=== PATIENT | female | born 1980 | race Caucasian/White ===

== ENCOUNTER 2016-07-24 14:18 | Emergency (ER) | payer OTHER ==
[~2016-07-24] VITALS: Ht 180.3 cm; Wt 157.9 kg
[~2016-07-24 14:18] MED LIST: ALBUTEROL0.09 MG/A2 IH; BACTRIM DS 8001 TA1 PO; BIAXIN500 MG PO; CIPRO500 MG PO; CIPROFLOXACIN500 MG PO; CLARITIN10 MG PO; CLEOCIN150 MG PO; CLINDAMYCIN150 MG PO; CLINDAMYCIN150 MG/ML PO; Cleocin150 MG PO; DONNATAL1 TAB PO; DOXYCYCLINE MO100 MG PO; FLEXERIL5 MG PO; HYDROCODONE BIT1 T11 PO; IBU800 M1 PO; KEFLEX500 MG PO; LIDEX 0.05% GEL60 GM PO; MACROBID100 M1 PO; MEDROL DOSEPAK4 MG PO; MOTRIN800 MG PO; NORCO 325 MG-51 TAB PO; PEPCID20 MG PO; PHENERGAN W/DM120 ML PO; PREDNICOT20 MG PO; PREDNISONE20 MG PO; PRENATAL1 TAB PO; ROBITUSSIN AC 110 ML PO; TRAMADOL HCL50 MG PO; TRIMOX500 MG PO; VIBRAMYCIN100 MG PO; ZITHROMAX Z PA250 MG PO; ZOFRAN ODT4 MG SL; ZOFRAN4 MG PO; ZYRTEC10 M2 PO; Zofran4 MG PO
[2016-07-24 15:03] LABS: BASO % 0.4 % (0.0-1.0); EOS # 0.1 10*3/uL (0.0-0.4); EOS % 1.9 % (1.0-4.0); HEMATOCRIT 32.5 % (37.0-47.0); HEMOGLOBIN 10.1 g/dl (12.0-16.0); LYMPH # 1.2 10*3/uL (1.3-4.4); LYMPH % 22.5 % (27.0-41.0); MEAN CELL VOLUME 80.4 fl (81.0-99.0); MEAN CORPUSCULAR HGB CONC 31.1 g/dl (33.0-37.0); MEAN PLATELET VOLUME 8.8 fl (9.6-12.3); MONO # 0.5 10*3/uL (0.1-1.0); MONO % 8.5 % (3.0-9.0); NEUT # 3.5 10*3/uL (2.3-7.9); NEUT % 66.5 % (47.0-73.0); PLATELET COUNT AUTOMATED 223 10*3/uL (130-400); RED BLOOD COUNT 4.04 10*6/uL (4.10-5.10); WHITE BLOOD COUNT 5.3 10*3/uL (4.8-10.8)
[2016-07-24 15:19] LABS: ALBUMIN 3.5 gm/dl (3.1-4.5); BILIRUBIN, TOTAL 0.6 mg/dl (0.2-1.0); POTASSIUM 4.3 mmol/L (3.5-5.1); TOTAL PROTEIN 7.6 gm/dL (6.4-8.2)
[2016-07-24 16:34] LABS: BILIRUBIN NEGATIVE (NEGATIVE); BLOOD 3+ (NEGATIVE); CLARITY SL CLOUDY (CLEAR); COLOR YELLOW (YELLOW); GLUCOSE NEGATIVE (NEGATIVE); KETONE NEGATIVE (NEGATIVE); LEUKO ESTERASE NEGATIVE (NEGATIVE); NITRITE NEGATIVE (NEGATIVE); PROTEIN 3+ (NEGATIVE); UROBILINOGEN 0.2 E.U./dl (0.2-1.0)
[2016-07-24 16:45] LABS: BACTERIA TRACE
[2016-07-24 16:46] LABS: URINE REFLEX COMMENT YES (NO)
[2016-07-25] MEDS ORDERED: 'CLONIDINE0.1 MG PO (12:18)
[2016-07-25] MEDS ORDERED: SERTRALINE HYD100 MG PO (12:18)
[2016-07-25] MEDS ORDERED: LISINOPRIL5 MG PO (12:18)
[2016-07-25] MEDS ORDERED: ABILIFY20 MG PO (14:34)
== END 2016-07-24 18:18 | disposition left against medical advice (07) ==
LOC: ED 14:18
PROVIDERS: Registered Nurse
DX: N17.9 Acute kidney failure, unspecified (principal); I10 Essential (primary) hypertension; E66.01 Morbid (severe) obesity due to excess calories; Z88.0 Allergy status to penicillin

== ENCOUNTER 2016-07-25 12:13 | Inpatient (IN) | payer OTHER ==
[~2016-07-25] VITALS: Ht 180.3 cm; Wt 154.3 kg
[2016-07-25 12:18] VITALS: BP 144/81
[2016-07-25] MEDS ORDERED: 'CLONIDINE0.1 MG PO (12:18)
[2016-07-25] MEDS ORDERED: LISINOPRIL5 MG PO (12:18)
[2016-07-25] MEDS ORDERED: SERTRALINE HYD100 MG PO (12:18)
[2016-07-25 12:54] LABS: BASO % 0.2 % (0.0-1.0); EOS # 0.2 10*3/uL (0.0-0.4); EOS % 3.2 % (1.0-4.0); HEMATOCRIT 32.1 % (37.0-47.0); HEMOGLOBIN 9.9 g/dl (12.0-16.0); LYMPH # 1.2 10*3/uL (1.3-4.4); LYMPH % 24.3 % (27.0-41.0); MEAN CELL VOLUME 81.1 fl (81.0-99.0); MEAN CORPUSCULAR HGB CONC 30.8 g/dl (33.0-37.0); MONO # 0.4 10*3/uL (0.1-1.0); MONO % 8.9 % (3.0-9.0); NEUT # 3.1 10*3/uL (2.3-7.9); PLATELET COUNT AUTOMATED 239 10*3/uL (130-400); RED BLOOD COUNT 3.96 10*6/uL (4.10-5.10); RED CELL DISTRI WIDTH 15.1 % (0-14.5); WHITE BLOOD COUNT 4.9 10*3/uL (4.8-10.8)
[2016-07-25 13:08] LABS: ALBUMIN 3.4 gm/dl (3.1-4.5); BILIRUBIN, TOTAL 0.4 mg/dl (0.2-1.0); POTASSIUM 4.2 mmol/L (3.5-5.1); TOTAL PROTEIN 7.6 gm/dL (6.4-8.2)
[2016-07-25 14:16] VITALS: BP 150/88
[2016-07-25 14:30] VITALS: BP 158/72
[2016-07-25] MEDS ORDERED: ABILIFY20 MG PO (14:34)
[2016-07-25 14:52] LABS: BILIRUBIN NEGATIVE (NEGATIVE); BLOOD 3+ (NEGATIVE); CLARITY SL CLOUDY (CLEAR); COLOR YELLOW (YELLOW); GLUCOSE NEGATIVE (NEGATIVE); KETONE NEGATIVE (NEGATIVE); LEUKO ESTERASE NEGATIVE (NEGATIVE); NITRITE NEGATIVE (NEGATIVE); PROTEIN 3+ (NEGATIVE); SPECIFIC GRAVITY 1.015 (1.005-1.030); UROBILINOGEN 0.2 E.U./dl (0.2-1.0)
[2016-07-25 15:26] LABS: RBC 21-30 rbc/hpf (0-2); URINE REFLEX COMMENT YES (NO); WBC 31-40 wbc/hpf (0-5)
[2016-07-25 15:27] LABS: BACTERIA 2+
[2016-07-25 16:00] VITALS: BP 154/62
[2016-07-25 20:00] VITALS: BP 155/72
[2016-07-26] VITALS: BP 148/66
[2016-07-26 06:32] LABS: BASO % 0.4 % (0.0-1.0); EOS # 0.2 10*3/uL (0.0-0.4); EOS % 3.9 % (1.0-4.0); HEMATOCRIT 27.5 % (37.0-47.0); HEMOGLOBIN 8.7 g/dl (12.0-16.0); LYMPH # 1.7 10*3/uL (1.3-4.4); LYMPH % 32.8 % (27.0-41.0); MEAN CELL VOLUME 80.4 fl (81.0-99.0); MEAN CORPUSCULAR HGB 25.4 pg (27.0-31.0); MEAN CORPUSCULAR HGB CONC 31.6 g/dl (33.0-37.0); MEAN PLATELET VOLUME 8.5 fl (9.6-12.3); MONO # 0.5 10*3/uL (0.1-1.0); MONO % 9.6 % (3.0-9.0); NEUT # 2.8 10*3/uL (2.3-7.9); NEUT % 52.9 % (47.0-73.0); PLATELET COUNT AUTOMATED 194 10*3/uL (130-400); RED BLOOD COUNT 3.42 10*6/uL (4.10-5.10); WHITE BLOOD COUNT 5.2 10*3/uL (4.8-10.8)
[2016-07-26 06:53] LABS: HEMOGLOBIN A1c 5.3 % (4.8-5.6)
[2016-07-26 07:16] LABS: ALBUMIN 2.9 gm/dl (3.1-4.5); BILIRUBIN, TOTAL 0.4 mg/dl (0.2-1.0); FREE T4 1.07 ng/dl (0.76-1.46); MAGNESIUM 1.7 mg/dL (1.5-2.1); PHOSPHOROUS 3.8 mg/dL (2.5-4.9); POTASSIUM 4.3 mmol/L (3.5-5.1); TOTAL PROTEIN 6.7 gm/dL (6.4-8.2)
[2016-07-26 07:20] LABS: THYROID STIM HORMONE (HS) 4.1 uIU/ml (0.358-4.75)
[2016-07-26 07:29] LABS: PROTHROMBIN TIME 10.2 SECONDS (9.0-12.4)
[2016-07-26 07:43] LABS: FOLIC ACID 6.3 ng/mL (>5.38); VITAMIN D, 25-HYDROXY 7.8 ng/mL (30-100)
[2016-07-26 08:00] VITALS: BP 156/82
[2016-07-26 12:00] VITALS: BP 148/88
[2016-07-26 16:00] VITALS: BP 152/78
[2016-07-26 20:00] VITALS: BP 152/70
[2016-07-27] VITALS: BP 156/73
[2016-07-27 06:36] LABS: BASO % 0.2 % (0.0-1.0); EOS # 0.2 10*3/uL (0.0-0.4); EOS % 3.3 % (1.0-4.0); HEMATOCRIT 27.4 % (37.0-47.0); HEMOGLOBIN 8.4 g/dl (12.0-16.0); LYMPH # 2.5 10*3/uL (1.3-4.4); LYMPH % 42.8 % (27.0-41.0); MEAN CELL VOLUME 80.1 fl (81.0-99.0); MEAN CORPUSCULAR HGB 24.6 pg (27.0-31.0); MEAN CORPUSCULAR HGB CONC 30.7 g/dl (33.0-37.0); MEAN PLATELET VOLUME 9.3 fl (9.6-12.3); MONO # 0.5 10*3/uL (0.1-1.0); NEUT # 2.6 10*3/uL (2.3-7.9); NEUT % 45.5 % (47.0-73.0); PLATELET COUNT AUTOMATED 202 10*3/uL (130-400); RED BLOOD COUNT 3.42 10*6/uL (4.10-5.10); RED CELL DISTRI WIDTH 14.9 % (0-14.5); WHITE BLOOD COUNT 5.8 10*3/uL (4.8-10.8)
[2016-07-27 07:13] LABS: POTASSIUM 4.3 mmol/L (3.5-5.1)
[2016-07-27 08:00] VITALS: BP 156/80
== END 2016-07-27 13:00 | disposition home or self-care (01) | DRG 683 ==
LOC: ED 12:13 → 5E 13:35 → EDHOLD 13:35 → 5E 14:01
PROVIDERS: Hospitalist; Internal Medicine; Registered Nurse
DX: N17.0 Acute kidney failure with tubular necrosis (principal); E46 Unspecified protein-calorie malnutrition; E87.8 Other disorders of electrolyte and fluid balance, not elsewhere classified; F33.9 Major depressive disorder, recurrent, unspecified; Z68.42 Body mass index [BMI] 45.0-49.9, adult; A08.4 Viral intestinal infection, unspecified; E83.51 Hypocalcemia; E86.0 Dehydration; D64.9 Anemia, unspecified; R82.71 Bacteriuria; E66.01 Morbid (severe) obesity due to excess calories; F41.9 Anxiety disorder, unspecified; N18.3 Chronic kidney disease, stage 3 (moderate); F17.210 Nicotine dependence, cigarettes, uncomplicated; I12.9 Hypertensive chronic kidney disease with stage 1 through stage 4 chronic kidney disease, or unspecified chronic kidney disease; Z88.0 Allergy status to penicillin; Z90.49 Acquired absence of other specified parts of digestive tract; Z98.891 History of uterine scar from previous surgery; Z83.3 Family history of diabetes mellitus; Z80.9 Family history of malignant neoplasm, unspecified; Z82.49 Family history of ischemic heart disease and other diseases of the circulatory system; Z79.899 Other long term (current) drug therapy

== ENCOUNTER → 2016-08-21 | Outpatient (CLI) | payer OTHER ==
[~2016-08-21] MED LIST changes: +'CLONIDINE0.1 MG PO; +ABILIFY20 MG PO; +LISINOPRIL5 MG PO; +SERTRALINE HYD100 MG PO
[2016-08-21 10:19] LABS: BASO % 0.5 % (0.0-1.0); EOS # 0.3 10*3/uL (0.0-0.4); EOS % 3.2 % (1.0-4.0); HEMATOCRIT 30.8 % (37.0-47.0); HEMOGLOBIN 9.6 g/dl (12.0-16.0); LYMPH # 2.8 10*3/uL (1.3-4.4); LYMPH % 33.6 % (27.0-41.0); MEAN CELL VOLUME 81.3 fl (81.0-99.0); MEAN CORPUSCULAR HGB 25.3 pg (27.0-31.0); MEAN CORPUSCULAR HGB CONC 31.2 g/dl (33.0-37.0); MEAN PLATELET VOLUME 8.4 fl (9.6-12.3); MONO # 0.5 10*3/uL (0.1-1.0); MONO % 5.6 % (3.0-9.0); NEUT # 4.8 10*3/uL (2.3-7.9); NEUT % 56.9 % (47.0-73.0); PLATELET COUNT AUTOMATED 254 10*3/uL (130-400); RED BLOOD COUNT 3.79 10*6/uL (4.10-5.10); RED CELL DISTRI WIDTH 15.1 % (0-14.5); WHITE BLOOD COUNT 8.4 10*3/uL (4.8-10.8)
[2016-08-21 10:30] LABS: BILIRUBIN NEGATIVE (NEGATIVE); BLOOD 3+ (NEGATIVE); CLARITY SL CLOUDY (CLEAR); COLOR YELLOW (YELLOW); GLUCOSE NEGATIVE (NEGATIVE); KETONE NEGATIVE (NEGATIVE); LEUKO ESTERASE TRACE (NEGATIVE); NITRITE NEGATIVE (NEGATIVE); PROTEIN 3+ (NEGATIVE); UROBILINOGEN 0.2 E.U./dl (0.2-1.0)
[2016-08-21 10:53] LABS: ALBUMIN 3.1 gm/dl (3.1-4.5); BILIRUBIN, TOTAL 0.3 mg/dl (0.2-1.0); MAGNESIUM 1.9 mg/dL (1.5-2.1); PHOSPHOROUS 4.3 mg/dL (2.5-4.9); POTASSIUM 4.1 mmol/L (3.5-5.1); TOTAL PROTEIN 7.2 gm/dL (6.4-8.2); URIC ACID 8.3 mg/dL (2.6-6.0)
[2016-08-21 11:14] LABS: FERRITIN 6.3 ng/mL (10.0-291.0); PTH INTACT 180.9 pg/mL (14.0-72.0); VITAMIN D, 25-HYDROXY 21.7 ng/mL (30-100)
[2016-08-21 11:33] LABS: HEMOGLOBIN A1c 5.4 % (4.8-5.6)
[2016-08-21 11:33] LABS: BACTERIA 2+
[2016-08-22 09:11] LABS: MICRO ALBUMIN/CRE RATIO 2963.6 (0.0-30.0)
== END | disposition home or self-care (01) ==
LOC: LAB 09:54
PROVIDERS: Internal Medicine Nephrology
DX: I12.9 Hypertensive chronic kidney disease with stage 1 through stage 4 chronic kidney disease, or unspecified chronic kidney disease (principal); N18.4 Chronic kidney disease, stage 4 (severe); R60.0 Localized edema; E66.9 Obesity, unspecified; D63.1 Anemia in chronic kidney disease; E79.0 Hyperuricemia without signs of inflammatory arthritis and tophaceous disease

== ENCOUNTER 2017-07-09 14:32 | Emergency (ER) | payer OTHER ==
[~2017-07-09] VITALS: Ht 210.8 cm; Wt 158.8 kg
[2017-07-09] MEDS ORDERED: PRINIVIL10 MG PO (15:49)
== END 2017-07-09 15:58 | disposition home or self-care (01) ==
LOC: ED 14:32
DX: I12.9 Hypertensive chronic kidney disease with stage 1 through stage 4 chronic kidney disease, or unspecified chronic kidney disease (principal); N18.3 Chronic kidney disease, stage 3 (moderate); F17.200 Nicotine dependence, unspecified, uncomplicated; E66.01 Morbid (severe) obesity due to excess calories; Z98.890 Other specified postprocedural states; Z90.49 Acquired absence of other specified parts of digestive tract; Z88.0 Allergy status to penicillin

== ENCOUNTER 2017-11-02 17:21 | Emergency (ER) | payer OTHER ==
[~2017-11-02 17:21] MED LIST changes: +PRINIVIL10 MG PO
== END 2017-11-02 18:24 | disposition home or self-care (01) ==
LOC: ED 17:21
DX: B34.9 Viral infection, unspecified (principal); I12.9 Hypertensive chronic kidney disease with stage 1 through stage 4 chronic kidney disease, or unspecified chronic kidney disease; N18.3 Chronic kidney disease, stage 3 (moderate); E66.01 Morbid (severe) obesity due to excess calories; F17.200 Nicotine dependence, unspecified, uncomplicated; Z88.0 Allergy status to penicillin

== ENCOUNTER 2018-02-14 17:01 | Inpatient (IN) | payer OTHER ==
[~2018-02-14] VITALS: Ht 180.3 cm; Wt 133.6 kg
--- NOTE | ~2018-02-14 | CON ---
[place], [place] REPORT OF CONSULTATION NAME: MARINA LIAO UNIT #: [id number] ROOM: 402 DOCTOR: CHAVEZ HODGSON,MAY BIRTHDATE: [birth year] DOS: 02/16/2018 HISTORY OF PRESENT ILLNESS: The patient is a 37-year-old female who was admitted from home on 02/14/2018. She states her original reason for actually coming to the hospital was due to a persistent hacking nonproductive cough that has since improved. She had had cold symptoms for several days, but she was found to be in renal failure. She had not followed up with her hand crocheter in over a year. She is also supposed to be on blood pressure medications and had been off of those for some time. She has transportation issues. She has had a temporary hemodialysis placed in the right IJ per Dr. Wright and started on hemodialysis when she is currently receiving. ID is currently consulted for positive blood culture, one bottle of her admitting blood cultures from the has gram-positive bacilli. All of the other bottles remain sterile. Repeat blood cultures from yesterday are pending. It took over 24 hours for the blood cultures to turn positive. She had MRSA screen, which was negative. Her urine culture remained sterile. Reviewing her admitting labs, her urinalysis had only +1 leukocyte esterase and wbc's 11-15 per high powered field. She denies urinary frequency or hematuria. States she felt like she had a little bit of burning with urination one time last week. She was ordered Levaquin for the +1 leukocyte esterase and concern for possible UTI. Vancomycin was also ordered, though it has not yet been given. She has had no fevers, no leukocytosis. She had no fevers at home, but did have some chills. No nausea or vomiting, no diarrhea. Has had some swelling in her ankles. Again, the cough has improved, no shortness of breath currently. PAST MEDICAL HISTORY: As above, chronic kidney disease, anxiety, depression, hypertension, morbid obesity, tobacco abuse, vitamin D deficiency, , cholecystectomy, possible preeclampsia with her last . FAMILY MEDICAL HISTORY: Father with diabetes, mother with diabetes and hypertension. SOCIAL HISTORY: Nondrinker, no illicit drug use. Smoker, 2 packs per day up to 4 sometimes, since she was 20 years old. ALLERGIES: PENICILLIN causes rash. LABORATORY DATA: WBC is 9.3, platelets 162, BUN 103, creatinine 10.5. LFTs within normal limits. Cultures as above. REVIEW OF SYSTEMS: Further review of systems are negative other than as stated above in history of present illness. PHYSICAL EXAMINATION: VITAL SIGNS: Temperature 98.3, pulse 87, respirations 24, BP 191/93. GENERAL: A 37-year-old pleasant obese female, in no acute distress, currently on hemodialysis, nontoxic in appearance. HEAD, EYES, EARS, NOSE AND THROAT: Normocephalic, edentulous. No thrush. NECK: Supple. Right neck with IJ in place, temporary hemodialysis catheter, which is currently accessed. [place], [place] REPORT OF CONSULTATION NAME: MARINA LIAO UNIT #: [id number] ROOM: [facility] DOCTOR: CHAVEZ HODGSONMAY BIRTHDATE: [birth year] LUNGS: Clear to auscultation bilaterally. Respirations even and unlabored. HEART: Regular rhythm. No murmur appreciated. ABDOMEN: Soft, obese, has some right upper quadrant discomfort with palpation. EXTREMITIES: No edema, deformity or cyanosis. SKIN: Warm, dry, free of rashes with few tattoos noted. ASSESSMENT: Bacteremia appears to be a contaminant. It is also doubtful that she has urinary tract infection due to lack of symptoms as well as a negative urine culture. PLAN: We will stop the Levaquin, stop the vancomycin. Chest x-ray was clear on admission. Followup on her final cultures. I agree with the assessment and plan done by the nurse practitioner, Ana Laura Byrne. I reviewed the images and notes and made the necessary changes. ANA LAURA BYRNE CNP Ekta Gan MD CM:CONSTR:REPORT OF CONSULTATION 1703 03/18/18 1123 interface
--- NOTE | ~2018-02-14 | CON ---
[place], [place] REPORT OF CONSULTATION NAME: MARINA LIAO UNIT #: [id number] ROOM: [facility] DOCTOR: COLIN KENDALL MD BIRTHDATE: [birth year] DOS: 02/15/2018 NEPHROLOGY CONSULTATION REASON FOR CONSULTATION: Acute on chronic kidney disease, severe hypertension. HISTORY OF PRESENT ILLNESS: The patient is an unfortunate 37-year-old female. She has a history of known chronic kidney disease. She had been seen by our service last year. She does have a history of hypertension, depression, and obesity. It seems she has some element of noncompliance. She gave a history of productive cough recently and URI symptoms, which prompted her visit to the Emergency Room. She did complain of a poor appetite and some nausea as well, particularly over the past few weeks. The patient reports she has been feeling very, very tired and had labs drawn, which showed her creatinine to be over 11. She also had systolic blood pressures over 200. She did admit that she had been not taking her medications and was unable to see her PCP to obtain refills. The patient has had known chronic kidney disease. She had been following with Dr. Leary in [place], but was lost to follow up. The patient has a probable glomerular disease. Looking at the record, she has had progressive chronic kidney disease over the years. In 2017, her creatinine in fact was over 4 and she was essentially at stage 5 CKD last year. I did note a renal ultrasound, which showed an atrophic kidney with no hydronephrosis. The patient reported to me that it was discussed to do a renal biopsy by Dr. Leary but this was deferred. I am not clear what kind of serological workup that she underwent. The patient does not have any significant improvement with fluids and the preparations are being placed to start dialysis. She tells me she feels fair right now and just tired. She does feel a little bit better from a breathing standpoint. Her appetite is not that good still. She does produce adequate urine she states. She denies fevers or chills. ALLERGIES: Listed TO PENICILLIN. HOME MEDICATIONS: Including Abilify, clonidine, Prinivil, and Zoloft. Apparently, she had not been taking these meds. PAST MEDICAL HISTORY: 1. Known chronic kidney disease, which has been fairly advanced as stated above. 2. Anxiety. 3. Depression. 4. Hypertension. 5. Morbid obesity. 6. Tobacco abuse. 7. Vitamin D deficiency. PAST SURGICAL HISTORY: 1. . 2. Cholecystectomy. 3. What sounds like preeclampsia from what she described to me as well during one of her pregnancies. [place], [place] REPORT OF CONSULTATION NAME: MARINA LIAO UNIT #: [id number] ROOM: [facility] DOCTOR: COLNI KENDALL MD BIRTHDATE: [birth year] FAMILY HISTORY: The patient does report to me she has had a number of family members that have had kidney problems with details unclear. SOCIAL HISTORY: She does have a history of tobacco abuse. No reports of illicit drugs or alcohol. REVIEW OF SYSTEMS: As per HPI, otherwise, a 10-point review of systems was reviewed and was negative. PHYSICAL EXAMINATION: VITAL SIGNS: Temperature afebrile, pulse 86, respiratory rate 19, blood pressure 202/98. GENERAL: She is alert, awake, oriented x 3, no acute distress. HEENT: Shows no JVD. Sclerae are anicteric. Mucous membranes appeared moist. Pharynx is clear. NECK: Supple. Trachea is midline. There is no neck lymphadenopathy or thyromegaly. LUNGS: Diminished breath sounds with an occasional wheeze. There is no tactile fremitus. She is not using accessory muscles of respiration. HEART: S1, S2. No rub, thrill or gallop. ABDOMEN: Soft, nontender. There is no organomegaly or rigidity, rebound or guarding. There is no CVA tenderness. EXTREMITIES: Had no edema. There is no lower extremity lymphadenopathy. Distal pulses are 2+. SKIN: Showed no overt rash. There is no petechia or purpura. Skin temperature is warm. NEUROLOGIC: She is awake, alert and following commands. Cranial nerves are intact. DIAGNOSTIC DATA: Reviewed. LABORATORY DATA: Hemoglobin 8.4, white count 6.8, platelets 176. BUN 91, creatinine 10.6, glucose 134. Sodium 138, potassium 4.1, CO2 of 14, calcium 7.8, phosphorus 5.7, magnesium 2.6. LFTs were within normal limits. Albumin 3.3. IMPRESSION: 1. Stage 5 chronic kidney disease with now new end-stage renal disease. The patient appears to have progressive chronic kidney disease. She is now requiring the need for dialysis. An acute on chronic scenario is possible, but seems less likely. 2. Metabolic acidosis. 3. Anemia, likely of chronic disease. 4. Hyperphosphatemia. 5. Severe hypertension. 6. History of anxiety. 7. Recent upper respiratory infection. 8. History of tobacco abuse. 9. Noncompliance. [place], [place] REPORT OF CONSULTATION NAME: MARINA LIAO UNIT #: [id number] ROOM: [facility] DOCTOR: COLIN KENDALL MD BIRTHDATE: [birth year] PLAN: 1. I had a long talk with the patient today. I explained to her that it appears that she has had progression of her chronic kidney disease, likely due to a glomerular disease and she now will likely be dialysis dependent. She did understand this and accepted her situation. There are tentative plans for a temporary dialysis catheter to be placed tomorrow. We will plan for dialysis treatment tomorrow and likely on Saturday. We will plan on getting her on a 3-day a week schedule sometime next week. She will need a tunneled dialysis catheter hopefully later in the week as well. This will need to be arranged for. 2. We will need to consult social service for outpatient dialysis arrangements. 3. She does have anemia. Would check iron studies and supplement IV iron if indicated. She will require erythropoietin stimulating agents; however, with her hypertension issues, we will hold on this for now. 4. She did have a renal ultrasound performed about a year and a half ago, but this can be considered to be repeated once again. 5. We will obtain an intact PTH level. 6. Stop IV fluids. We will correct her metabolic acidosis with dialysis. 7. She likely will require a phosphorus binder. It seems she has been started on PhosLo. 8. For her blood pressure, we will add labetalol and titrate as tolerated. We will add Norvasc today. Clonidine continues as needed. She had been on KENYA inhibitor prescribed prior to her admission. When she starts dialysis, I think it would be acceptable to resume this as well. Thank you for this consultation. COLIN KENDALL MD CM:CONSTR:REPORT OF CONSULTATION 1546 02/15/18 1644 interface
--- NOTE | ~2018-02-14 | PR ---
[place], [place] PROGRESS NOTE NAME: MARINA LIAO UNIT #: [id number] ROOM: 402 DOCTOR: COLIN KENDALL MD BIRTHDATE: [birth year] DOS: 02/17/2018 SUBJECTIVE: The patient was seen and examined. She seems to be feeling better. She has now had dialysis twice. She has been tolerating treatment fairly well. Denies shortness of breath, fevers, chills or night sweats. PHYSICAL EXAMINATION: VITAL SIGNS: Temperature 98.3, pulse 84, respiratory rate 16, blood pressure 181/97. HEENT: Shows no JVD. LUNGS: Clear. HEART: S1, S2. No rub. ABDOMEN: Soft, nontender. EXTREMITIES: Showed no edema. DIAGNOSTIC DATA: Hemoglobin 7.5, white count 6.8, platelets 167. Sodium 144, potassium 3.7, CO2 21, BUN 69, creatinine 7.3, glucose 89, calcium 7.7, phosphorus of 5.3, magnesium 2.0, albumin 3.1. Intact PTH level of 357. Hepatitis panel is pending. ASSESSMENT AND PLAN: 1. New end-stage renal disease. The patient is now status post dialysis x 2. We will plan for her third treatment on Saturday. The patient will need a tunneled dialysis catheter. Would recommend asking surgery to replace her temporary catheter with TDC hopefully mid-week. The patient will require Social Service consult for outpatient dialysis arrangements. She did understand this. 2. Anemia, likely of chronic disease. The patient will require erythropoietin stimulating agents. We will hold on starting this in the hospital since her blood pressure has been a little bit on the higher side. Would check iron studies and can start IV iron. 3. Hyperphosphatemia and secondary hyperparathyroidism. Her PTH levels are acceptable. We will initiate activated vitamin D therapy in the dialysis unit. She has been started on PhosLo with meals. 4. Hypertension. Her blood pressure remains high. Would recommend resuming her KENYA inhibitor, since dialysis now has started. Continue other medications. [place], [place] PROGRESS NOTE NAME: MARINA LAIO UNIT #: [id number] ROOM: 402 DOCTOR: COLIN KENDALL MD BIRTHDATE: [birth year] COLIN KENDALL MD CM:PNTRANS [phone] COLIN KENDALL MD 02/17/18 1444 interface
--- NOTE | ~2018-02-14 | EKG ---
[place], [place] ELECTROCARDIOGRAM REPORT NAME: MARINA LIAO UNIT #: [id number] ROOM: 402 DOCTOR: MARGARITO DRAFT REPORT BIRTHDATE: [birth year] [facility] Test Date: 2018-02-14 Test Time: 17:29:02 Pat Name: MARINA LIAO Department: Room: 402 Gender: F Snow Blower: Nba Blas : 1980 Requested By: SARAH CHACON Order Number: [id number] Reading MD: Brittany Gupta MD Measurements Intervals [place] Rate: 75 P: 23 PA: 151 QRS: 46 QRSD: 120 T: 45 QT: 422 QTc: 472 Interpretive Statements Sinus rhythm Nonspecific intraventricular conduction delay Baseline wander in lead(s) V Electronically Signed On 02-21-2018 10:42:19 PST by Brittany Gupta MD CM:EKGRPT:ELECTROCARDIOGRAM REPORT 1729 [id number] SARAH CHACON EPIPHANY DRAFT REPORT SARAH CHACON
--- NOTE | ~2018-02-14 | PR ---
[place], [place] PROGRESS NOTE NAME: MARINA LIAO UNIT #: [id number] ROOM: 402 DOCTOR: CHAVEZ HODGSONMAY BIRTHDATE: [birth year] DOS: 02/17/2018 SUBJECTIVE: The patient is a 37-year-old female who is being followed for positive blood culture. She had one bottle which grew gram-positive bacilli. Her urine cultures are sterile. She had no fevers. She finished another dialysis treatment this morning, hopefully for permanent Tesio later in the week, feels okay, had some nausea on dialysis this morning. Otherwise, no emesis, no diarrhea. Again, no fevers or chills. No rash. Further review of systems is unremarkable VITAL SIGNS: Temperature 98.3, pulse 84, respirations 16, BP 181/97. CURRENT MEDICATIONS: Norvasc, vitamin D, Zoloft, PhosLo, DuoNebs, Normodyne, heparin, Mucinex, Pepcid, Abilify, Restoril, morphine, Dulcolax. LABORATORY DATA: Cultures as reviewed above. WBC 6.8, platelets 167. BUN 69, creatinine 7.34. LFTs within normal limits. PHYSICAL EXAMINATION: GENERAL: A 37-year-old obese female, in no acute distress. HEAD, EYES, EARS, NOSE AND THROAT: Normocephalic, no thrush, edentulous. NECK: Supple. Right IJ temporary hemodialysis catheter is dressed. LUNGS: Clear to auscultation bilaterally. Respirations even and unlabored. HEART: Regular rhythm. No murmur appreciated. ABDOMEN: Soft, nondistended. EXTREMITIES: No edema or deformity. SKIN: Warm, dry, free of rashes. ASSESSMENT: Gram positive bacilli bacteremia, likely contaminant. No sign of urinary infection and urine culture is negative. PLAN: No further antibiotics. MAY GOKUL BYRNE [place], [place] PROGRESS NOTE NAME: MARINA LIAO UNIT #: [id number] ROOM: 402 DOCTOR: CHAVEZ HODGSONMAY BIRTHDATE: [birth year] Ekta Gan MD CM:SERENE [id number] MAY CHAVEZ DIGESTER HAND 02/17/18 140 interface
[2018-02-14 17:03] VITALS: BP 238/104
[2018-02-14 17:39] LABS: BASO % 0.5 % (0.0-1.0); EOS # 0.6 10*3/uL (0.0-0.4); EOS % 7.4 % (1.0-4.0); HEMOGLOBIN 8.7 g/dl (12.0-16.0); LYMPH # 1.4 10*3/uL (1.3-4.4); LYMPH % 18.3 % (27.0-41.0); MEAN CELL VOLUME 78.7 fl (81.0-99.0); MEAN CORPUSCULAR HGB 25.4 pg (27.0-31.0); MEAN CORPUSCULAR HGB CONC 32.2 g/dl (33.0-37.0); MEAN PLATELET VOLUME 9.3 fl (9.6-12.3); MONO # 0.4 10*3/uL (0.1-1.0); MONO % 5.7 % (3.0-9.0); NEUT # 5.1 10*3/uL (2.3-7.9); NEUT % 67.8 % (47.0-73.0); PLATELET COUNT AUTOMATED 181 10*3/uL (130-400); RED BLOOD COUNT 3.43 10*6/uL (4.10-5.10); RED CELL DISTRI WIDTH 16.4 % (0-14.5); WHITE BLOOD COUNT 7.6 10*3/uL (4.8-10.8)
[2018-02-14 18:03] LABS: ALKALINE PHOSPHATASE 77 U/L (45-117); BUN 90 mg/dl (7-24); CHLORIDE 111 mmol/L (98-107); LIPASE 155 U/L (73-393); POTASSIUM 3.4 mmol/L (3.5-5.1); SGOT/AST 10 IU/L (3-35); SGPT/ALT 18 U/L (12-78); SODIUM 139 mmol/L (136-145); TOTAL PROTEIN 8.7 gm/dL (6.4-8.2)
[2018-02-14 18:05] LABS: TROPONIN I < 0.015 ng/ml (<0.045)
[2018-02-14 18:22] VITALS: BP 188/92
[2018-02-14 18:42] VITALS: BP 197/100
[2018-02-14 19:23] VITALS: BP 184/100
[2018-02-14 19:55] VITALS: BP 188/92; BP 197/89
--- NOTE | 2018-02-14 20:19 | NUR ---
A 37, admitted to [facility], under the services of ELIZABETH Freedman DO with a diagnosis of HYPERTENSIVE EMERGENCY ARF CHRONIC ANEMIA. Chief complaint is CHEST CONGESTION COUGH X1 WEEK. Patient arrived via stretcher from ER. Monitor applied. Initial assessment completed. Vital signs taken and recorded. ELIZABETH FREEDMAN DO notified of admission to the unit. Orders received. See assessment for past medical history, medications and allergies. Patient and/or family oriented to unit. [facility] visitation policy reviewed. Clothing/patient valuable form completed. [place]
--- NOTE | 2018-02-14 20:44 | NUR ---
PATIENT MEDS VERIFIED WITH PATIENT AND PAST MED CLAIM HISTORY IN THE COMPUTER.
--- NOTE | 2018-02-14 20:58 | NUR ---
CONSULT CALLED TO DOCTOR ALYCE ANSWERING SERVICE DARRYL TOOK MESSAGE AND CONSULT.
--- NOTE | 2018-02-14 21:10 | NUR ---
DOCTOR FAIZA CALLED BACK SAYING THAT PATIENT WILL NEED DIALYSIS BUT WILL NOT HAPPEN TILL SATURDAY ANDTO START ON LABETALOL PO TID IF DOES NOT IMPROVE OVER NIGHT WILL NEED SHIPPED OUT.
[2018-02-15] VITALS (9 sets, daily range): BP systolic 172–202; BP diastolic 78–100
--- NOTE | 2018-02-15 02:06 | NUR ---
PATIENT HAS HAD SEVERAL PHONES CALLS THROUGH OUT THE NIGHT BY FAMILY SHE HAS HAD EVERY CALL ON SPEAKER PHONE TELLING THEN THAT SHE WAS TOLD IF SHE COMES HOME THAT SHE COULD GO TO SLEEP AND NEVER WAKE UP BECAUSE THEY HAVE HER BLOOD PRESSURE SO HIGH WITH THE DRAMA AT HOME THIS CONVERSATION WAS HEARD SEVERAL TIMES. THIS TIME WHEN FAMILY CALLED IN IT WAS VERY LOUD I KINDLY ASKED THE PATIENT IF SHE COULD TURN DOWN THE VOLUME BECAUSE THERE WAS PATIENT ON THE OTHER SIDE OF THE CURTAIN SHE TOLD ME IT WAS ON LOW THEN PROCEEDED TO TELL FAMILY THAT SHE HAS BEEN YELLED AT THREE TIMES FOR BEING LOUD BUT THIS WAS THE FIRST TIME THAT ANYTHING WAS SAID.
[2018-02-15 02:36] LABS: BILIRUBIN NEGATIVE (NEGATIVE); BLOOD 2+ (NEGATIVE); CLARITY SL CLOUDY (CLEAR); COLOR YELLOW (YELLOW); GLUCOSE NEGATIVE (NEGATIVE); KETONE NEGATIVE (NEGATIVE); LEUKO ESTERASE 1+ (NEGATIVE); NITRITE NEGATIVE (NEGATIVE); PH 6.5 (5.0-9.0); UROBILINOGEN 0.2 E.U./dl (0.2-1.0)
[2018-02-15 03:07] LABS: BACTERIA 1+; EPITHELIAL CELLS 25-30
--- NOTE | 2018-02-15 04:15 | NUR ---
PATIENT RESTINGWITH EYES CLOSED PATIENT BP CURRENTLY 189/91. PATIENT HAS URINATED ONCE THROUGHOUT THE NIGHT 800ML STRAW COLORED URINE. PATIENT VOICES NO COMPLAINTS AT THIS TIME.
--- NOTE | 2018-02-15 06:10 | NUR ---
PATIENT AWAKE AND JOKING STATING IF SHE WOULD HAVE KNOWN THAT SHE WAS BEING ADMITTED SHE WOULD HAVE BROUGHT CROSSWORDS TO DO.
[2018-02-15 06:24] LABS: HEMATOCRIT 27.1 % (37.0-47.0); HEMOGLOBIN 8.4 g/dl (12.0-16.0); MEAN CELL VOLUME 80.4 fl (81.0-99.0); MEAN CORPUSCULAR HGB 24.9 pg (27.0-31.0); MEAN PLATELET VOLUME 9.3 fl (9.6-12.3); PLATELET COUNT AUTOMATED 176 10*3/uL (130-400); RED BLOOD COUNT 3.37 10*6/uL (4.10-5.10); RED CELL DISTRI WIDTH 16.5 % (0-14.5); WHITE BLOOD COUNT 6.8 10*3/uL (4.8-10.8)
[2018-02-15 06:56] LABS: POTASSIUM 4.1 mmol/L (3.5-5.1)
[2018-02-15 07:03] LABS: ALBUMIN 3.3 gm/dl (3.1-4.5); CREATININE 10.6 mg/dL (0.55-1.02); FREE T4 1.01 ng/dl (0.76-1.46); PHOSPHOROUS 5.7 mg/dL (2.5-4.9); THYROID STIM HORMONE (HS) 1.57 uIU/ml (0.358-4.75); TOTAL PROTEIN 8.2 gm/dL (6.4-8.2)
--- NOTE | 2018-02-15 07:14 | NUR ---
Shift chart check completed.
[2018-02-15 07:43] LABS: PLATELET SUFFICIENCY NORMAL (NORMAL); TOTAL CELLS COUNTED 100 #CELLS
[2018-02-15 08:00] LABS: VITAMIN D, 25-HYDROXY 15.9 ng/mL (30-100)
--- NOTE | 2018-02-15 10:27 | NUR ---
SPOKE WITH DR KENDALL ABOUT LABS & DIALYSIS CATHETER. REQUESTED PATIENT BE TRANSFERRED OUT FOR DILAYSIS CATHETER UNLESS CAN BE PLACED HERE. DR Linda BATRES CALLED.
--- NOTE | 2018-02-15 10:50 | NUR ---
DR Elba BATRES CAME IN AND CASE DISCUSSED - DR BATRES CALLED DR LOGAN AND HE CAN PLACE THE CATHETER. DR KENDALL CALLED AND SAID THEY COULD DO THE DIALYSIS HERE BUT HTAT THE PATIENT MUST BE INFORMED THAT SHE WILL BE HERE MOST OF THE WEEK, THIS IS A PERMANENT NOT TEMPORARY THING. HE WILL NOT DISCHARGE HER AND IF SHE REFUSES SHE WILL HAVE TO SIGN OUT AMA.
--- NOTE | 2018-02-15 12:15 | NUR ---
DR LOGAN HERE TO TALK WITH THE APTIENT & ABOUT THE TEMPORARY DIALYSIS CATHETER INSERTION
--- NOTE | 2018-02-15 13:40 | NUR ---
CLONIDINE GIVEN FOR CONTINUED ELEVATED PRESSURE DESPITE FAMILY GONE AND CALMER. BP 2019/ MANUAL
--- NOTE | 2018-02-15 14:36 | NUR ---
DR KENDALL AT HOSPITAL & WILL SEE PATIENT SHORTLY
--- NOTE | 2018-02-15 15:06 | NUR ---
DR FAIZA MCDONOUGH. SPOKE WITH THE PATIENT.
--- NOTE | 2018-02-15 15:54 | NUR ---
Sleeping quietly since moved to a private room. Resp easy & nonlabored
[2018-02-16] VITALS (13 sets, daily range): BP systolic 137–194; BP diastolic 75–98
[2018-02-16 06:45] LABS: HEMATOCRIT 24.8 % (37.0-47.0); HEMOGLOBIN 7.7 g/dl (12.0-16.0); MEAN CELL VOLUME 81.3 fl (81.0-99.0); MEAN CORPUSCULAR HGB 25.2 pg (27.0-31.0); MEAN PLATELET VOLUME 9.1 fl (9.6-12.3); PLATELET COUNT AUTOMATED 162 10*3/uL (130-400); RED BLOOD COUNT 3.05 10*6/uL (4.10-5.10); RED CELL DISTRI WIDTH 16.8 % (0-14.5); WHITE BLOOD COUNT 9.3 10*3/uL (4.8-10.8)
[2018-02-16 07:16] LABS: ALBUMIN 3.4 gm/dl (3.1-4.5); CREATININE 10.5 mg/dL (0.55-1.02); POTASSIUM 4.6 mmol/L (3.5-5.1); TOTAL PROTEIN 7.5 gm/dL (6.4-8.2)
[2018-02-16 07:31] LABS: PLATELET SUFFICIENCY NORMAL (NORMAL); SCHISTOCYTES FEW; TOTAL CELLS COUNTED 100 #CELLS
--- NOTE | 2018-02-16 07:57 | NUR ---
DR Linda BATRES AWARE OF H&H AND THAT FLUIDS CONTINUE TO INFUSE
--- NOTE | 2018-02-16 08:53 | NUR ---
PATIENT TO SURGERY - REPORT TO Abelardo JONES RN...FAMILY TO 3 WAITING ROOM
[2018-02-16 08:57] LABS: ACT PARTIAL THROMBO TIME 27.5 SECONDS (20.8-31.5)
--- NOTE | 2018-02-16 11:12 | NUR ---
REPORT RECEIVED FROM SURGICAL NURSE. PATIENT WILL RETURN SHORTLY
--- NOTE | 2018-02-16 11:32 | NUR ---
RECEIVED FROM SURGERY - VSS. PT [id number]
--- NOTE | 2018-02-16 11:47 | NUR ---
PHARMACIST CALLED ABOUT DOSE OF VANCOMYCIN - WILL HOLD DOSE & RETIME IT
--- NOTE | 2018-02-16 13:42 | NUR ---
CALL PLACED TO INFECTIOUS DISEASE ABOUT CONSULT.
--- NOTE | 2018-02-16 13:48 | NUR ---
CASE REVIEWED WITH DR HASSAN - NO NEW ORDERS
--- NOTE | 2018-02-16 15:16 | NUR ---
DIALYSIS NURSE HERE - SETTING UP FOR 1ST TREATMENT
--- NOTE | 2018-02-16 16:48 | NUR ---
MARIANNA BYRNE FROM INFECTIOUS DISEASE HERE TO SEE PATIENT.
--- NOTE | 2018-02-16 17:45 | NUR ---
PATIENT TOLERATING DIALYSIS WELL.
[2018-02-17] VITALS: BP 175/76
[2018-02-17 04:00] VITALS: BP 169/82
[2018-02-17 05:31] LABS: ALBUMIN 3.1 gm/dl (3.1-4.5); CREATININE 7.34 mg/dL (0.55-1.02); PHOSPHOROUS 5.3 mg/dL (2.5-4.9); POTASSIUM 3.7 mmol/L (3.5-5.1); TOTAL PROTEIN 6.5 gm/dL (6.4-8.2)
[2018-02-17 05:47] LABS: BASO % 0.4 % (0.0-1.0); EOS % 0.5 % (1.0-4.0); HEMATOCRIT 21.5 % (37.0-47.0); HEMOGLOBIN 6.7 g/dl (12.0-16.0); LYMPH # 2.4 10*3/uL (1.3-4.4); LYMPH % 31.7 % (27.0-41.0); MEAN CELL VOLUME 80.5 fl (81.0-99.0); MEAN CORPUSCULAR HGB 25.1 pg (27.0-31.0); MEAN CORPUSCULAR HGB CONC 31.2 g/dl (33.0-37.0); MEAN PLATELET VOLUME 9.4 fl (9.6-12.3); MONO # 0.6 10*3/uL (0.1-1.0); MONO % 8.3 % (3.0-9.0); NEUT # 4.4 10*3/uL (2.3-7.9); NEUT % 58.8 % (47.0-73.0); PLATELET COUNT AUTOMATED 171 10*3/uL (130-400); RED BLOOD COUNT 2.67 10*6/uL (4.10-5.10); RED CELL DISTRI WIDTH 17.2 % (0-14.5); WHITE BLOOD COUNT 7.4 10*3/uL (4.8-10.8)
--- NOTE | 2018-02-17 06:56 | NUR ---
Shift chart check completed.
[2018-02-17 07:47] VITALS: BP 193/96
--- NOTE | 2018-02-17 08:30 | NUR ---
Full Decator Operator in to see patient. She is currently receiving dialysis at the bedside. She is resting with her eyes closed. Resps even and unlabored. Will follow up at a later time.
[2018-02-17 11:22] VITALS: BP 181/97
[2018-02-17 11:52] LABS: BASO % 0.3 % (0.0-1.0); EOS # 0.1 10*3/uL (0.0-0.4); EOS % 1.2 % (1.0-4.0); HEMATOCRIT 23.5 % (37.0-47.0); HEMOGLOBIN 7.5 g/dl (12.0-16.0); LYMPH # 2.5 10*3/uL (1.3-4.4); LYMPH % 37.1 % (27.0-41.0); MEAN CELL VOLUME 78.9 fl (81.0-99.0); MEAN CORPUSCULAR HGB 25.2 pg (27.0-31.0); MEAN CORPUSCULAR HGB CONC 31.9 g/dl (33.0-37.0); MEAN PLATELET VOLUME 8.8 fl (9.6-12.3); MONO # 0.5 10*3/uL (0.1-1.0); MONO % 7.2 % (3.0-9.0); NEUT # 3.7 10*3/uL (2.3-7.9); NEUT % 53.9 % (47.0-73.0); PLATELET COUNT AUTOMATED 167 10*3/uL (130-400); RED BLOOD COUNT 2.98 10*6/uL (4.10-5.10); RED CELL DISTRI WIDTH 17.2 % (0-14.5); WHITE BLOOD COUNT 6.8 10*3/uL (4.8-10.8)
--- NOTE | 2018-02-17 12:06 | NUR ---
Professional Healthcare Representative in to see patient. She is resting with her eyes closed. Resps even and unlabored. Will follow up at a later time.
--- NOTE | 2018-02-17 12:22 | NUR ---
PER DIALYSIS NURSE THE NEXT TREATMENT WILL BE ON SATURDAY
--- NOTE | 2018-02-17 14:16 | NUR ---
MOVED TO ROOM 402-2 VIA BED WITH BELONGINGS INCLUDING CELL PHONE & GLASS PRESSER
--- NOTE | 2018-02-17 14:16 | NUR ---
RECIEVED REPORT ABOUT FROM ARIK FROM ICU. THE PATIENT WAS ASSESSED HEAD TO TOE. NO COMPLAINTS FROM THE PATIENT AT THIS TIME.
--- NOTE | 2018-02-17 14:40 | NUR ---
Photolithographic Stripper in to talk to patient. Patient states lives at home with her and children. There are 14 steps in the home. Physician: Jaclyn Nagel [facility]acy: [facility] Home health services: none Patient's level of ADLs: INDEPENDENT Patient has working utilities: yes DME: none Follow-up physician's appointment after d/c: will be made by the hospitalist nurse director upon discharge Does patient want to access PORTAL?: no Discharge plan discussed with patient. She lives at home with her and children. She is independent in her ADLs and ambulation. Discussed home health care services and she denies any nurse or therapy needs but would like with her children. She is going to call her cousin to see if she can help. When medically stable she will be discharged to home. DARRYL GARRETT
[2018-02-17 16:00] VITALS: BP 156/83
--- NOTE | 2018-02-17 20:00 | NUR ---
AAOX3 RESTING IN BED. HEP LOCK INTACT TO LEFT ANTECUBITAL; SITE ASYMPTOMATIC. PT. ALSO HAS A TEMPORARY CATHETER FOR DIALYSIS IN HER RIJ. PT. IS ALERT & ORIENTED. PULSE OX 96% ON ROOM AIR. LUNGS DIMINISHED; NO COUGH NOTED. ABDOMEN OBESE WITH HYPERACTIVE BOWEL SOUNDS NOTED. PT. STATES THAT SHE HAD A BOWEL MOVEMENT TODAY. TRACE EDEMA NOTED. BP UP; SEE FLOW SHEET. WILL MEDICATED. PT. VOICES NO C/O PAIN OR DISCOMFORT AT THIS TIME. BED IN LOW POSITION; CALL LIGHT WITHIN REACH.
[2018-02-18] VITALS: BP 144/72
[2018-02-18 06:02] LABS: BASO % 0.6 % (0.0-1.0); EOS # 0.3 10*3/uL (0.0-0.4); EOS % 5.1 % (1.0-4.0); HEMATOCRIT 24.1 % (37.0-47.0); HEMOGLOBIN 7.4 g/dl (12.0-16.0); LYMPH # 2.3 10*3/uL (1.3-4.4); LYMPH % 36.1 % (27.0-41.0); MEAN CELL VOLUME 80.9 fl (81.0-99.0); MEAN CORPUSCULAR HGB 24.8 pg (27.0-31.0); MEAN CORPUSCULAR HGB CONC 30.7 g/dl (33.0-37.0); MEAN PLATELET VOLUME 9.2 fl (9.6-12.3); MONO # 0.5 10*3/uL (0.1-1.0); MONO % 8.4 % (3.0-9.0); NEUT # 3.2 10*3/uL (2.3-7.9); NEUT % 49.6 % (47.0-73.0); PLATELET COUNT AUTOMATED 179 10*3/uL (130-400); RED BLOOD COUNT 2.98 10*6/uL (4.10-5.10); RED CELL DISTRI WIDTH 17.1 % (0-14.5); WHITE BLOOD COUNT 6.5 10*3/uL (4.8-10.8)
[2018-02-18 06:07] LABS: HEPATITIS B SURFACE AG Negative (Negative); HEPATITIS C VIRUS ANTIBODY 0.2 s/co (0.0-0.9)
[2018-02-18 06:11] LABS: ALBUMIN 3.2 gm/dl (3.1-4.5); CREATININE 6.16 mg/dL (0.55-1.02); POTASSIUM 3.9 mmol/L (3.5-5.1); TOTAL PROTEIN 6.7 gm/dL (6.4-8.2)
[2018-02-18 09:00] VITALS: BP 172/62
[2018-02-18 12:00] VITALS: BP 154/67
[2018-02-18 16:00] VITALS: BP 143/69
[2018-02-18 20:00] VITALS: BP 153/85
--- NOTE | 2018-02-18 20:00 | NUR ---
PT RESTING IN BED WITH FAMILY AT BEDSIDE. NO COMPLAINTS VOICED AT THIS TIME. NO ACUTE DISTRESS NOTED. RESPS EASY AND REG. CALL LIGHT IN REACH.
[2018-02-19] VITALS (24 sets, daily range): BP systolic 114–198; BP diastolic 53–112
--- NOTE | 2018-02-19 01:39 | NUR ---
24 HR chart check completed.
[2018-02-19 06:27] LABS: BASO % 0.5 % (0.0-1.0); EOS # 0.7 10*3/uL (0.0-0.4); EOS % 8.5 % (1.0-4.0); HEMATOCRIT 25.1 % (37.0-47.0); HEMOGLOBIN 7.7 g/dl (12.0-16.0); LYMPH # 2.7 10*3/uL (1.3-4.4); LYMPH % 34.4 % (27.0-41.0); MEAN CELL VOLUME 81.8 fl (81.0-99.0); MEAN CORPUSCULAR HGB 25.1 pg (27.0-31.0); MEAN CORPUSCULAR HGB CONC 30.7 g/dl (33.0-37.0); MEAN PLATELET VOLUME 8.3 fl (9.6-12.3); MONO # 0.4 10*3/uL (0.1-1.0); MONO % 5.2 % (3.0-9.0); NEUT # 4.1 10*3/uL (2.3-7.9); NEUT % 51.1 % (47.0-73.0); PLATELET COUNT AUTOMATED 160 10*3/uL (130-400); RED BLOOD COUNT 3.07 10*6/uL (4.10-5.10); RED CELL DISTRI WIDTH 16.7 % (0-14.5); WHITE BLOOD COUNT 7.9 10*3/uL (4.8-10.8)
[2018-02-19 06:55] LABS: CREATININE 7.54 mg/dL (0.55-1.02); PHOSPHOROUS 5.5 mg/dL (2.5-4.9); POTASSIUM 3.8 mmol/L (3.5-5.1)
--- NOTE | 2018-02-19 08:33 | NUR ---
Pigment Making Supervisor in to see patient. She is currently being taken to OR. Will follow up at a later time.
--- NOTE | 2018-02-19 08:35 | NUR ---
SENT TO SURGERY VIA BED FOR DIALYSIS CATH PLACEMENT
--- NOTE | 2018-02-19 10:23 | NUR ---
Spoke to Arlet at the Dialysis Clinic. She is unaware of follow up dialysis times for this patient. Will reach out to physician.
--- NOTE | 2018-02-19 10:26 | NUR ---
DURING PROCEDURE OF INSERTION OF DIALYSIS CATH, PT ANXIOUS AND COMPLAINING OF PAIN. VERBAL ORDER GIVEN PER DR CARDENAS FOR VERSED AND FENTANYL. PT GIVEN IV VERSED 1MG AT 0940, AND 50MCG IV FENTANYL AT 0943. PT STILL MOANING AND ANXIOUS, PER DOCTOR PT GIVEN 1MG MORE OF VERSED AT 0945. PT PAIN AND ANXIETY IMPORVED SHORTLY FOLLOWING.
--- NOTE | 2018-02-19 10:38 | NUR ---
Spoke to [facility] office regarding OP dialysis. Instructed to call [facility] as the office doesn't set up the OP dialysis. Physician will need to call [facility] and inform them of new patient and orders.
--- NOTE | 2018-02-19 10:46 | NUR ---
PT RETURNED FROM PROCEDURE, DR. ZAPATA IN TO SEE PATIENT. FAMILY AT BEDSIDE PT AWARE ORDER FOR BEDREST FOR 4 HOURS AND HOB AT 45DEGREES. SMALL AMOUNT OF BLOOD RIGHT NECK, WILL MONITOR
--- NOTE | 2018-02-19 11:26 | NUR ---
Spoke to David at [facility]. Awaiting intake form via fax.
--- NOTE | 2018-02-19 11:35 | NUR ---
PER DR. MULLER (ROUNDING WITH DR. CRABTREE) PT SHOULD HAVE DIALYSIS TODAY. I PAGED THE [facility] DIALYSIS NURSE, WAITING FOR CALL BACK
--- NOTE | 2018-02-19 11:39 | NUR ---
spoke to [facility], they stated somone is on their way here. if i do not hear from them in 45minutes to 1 hour, to call back
--- NOTE | 2018-02-19 11:55 | NUR ---
Faxed [facility] intake form and clinicals. Awaiting return response.
--- NOTE | 2018-02-19 11:57 | NUR ---
VITAL SIGNS Q15 MINUTES POST PROCEDURE COMPLETED, NO NEW BLEEDING NOTED AT HD CATH INSERTION SITE. PT STATES AREA TENDER, NO PAIN. NO SHORTNESS OF BREATH. WILL CONTINUE TO MONITOR
--- NOTE | 2018-02-19 13:35 | NUR ---
pt sent to dialysis via bed
--- NOTE | 2018-02-19 14:30 | NUR ---
PT STATES SHE SAW DR. DREA MOREAU WITH [facility] IN [place] IN THE PAST, QUALITY CONTROL DIRECTOR ATTEMPTED TO CONTACT OFFICE TO GET RECORDS AND THE OFFICE WAS CLOSED TODAY.
[2018-02-19 14:53] LABS: IRON 47 ug/dL (50-170); TOTAL IRON BINDING CAPACITY 252 ug/dl (250-450)
[2018-02-20] VITALS: BP 100/84
--- NOTE | 2018-02-20 03:27 | NUR ---
PATIENT SLEEPING. NO S/S OF DISTRESS NOTED. RESPIRATIONS EASY/REG. CALL LIGHT IN REACH
[2018-02-20 08:00] VITALS: BP 112/52
--- NOTE | 2018-02-20 08:00 | NUR ---
Patient resting quietly with no c/o discomfort. Respirations easy and regular. Vital signs stable. No overt distress. ELVIRA CHANDLER
[2018-02-20 08:14] LABS: BASO % 0.6 % (0.0-1.0); EOS # 0.5 10*3/uL (0.0-0.4); EOS % 6.9 % (1.0-4.0); HEMATOCRIT 25.5 % (37.0-47.0); HEMOGLOBIN 7.9 g/dl (12.0-16.0); LYMPH # 2.1 10*3/uL (1.3-4.4); LYMPH % 29.8 % (27.0-41.0); MEAN CELL VOLUME 82.8 fl (81.0-99.0); MEAN CORPUSCULAR HGB 25.6 pg (27.0-31.0); MEAN PLATELET VOLUME 9.2 fl (9.6-12.3); MONO # 0.5 10*3/uL (0.1-1.0); MONO % 6.7 % (3.0-9.0); NEUT # 3.9 10*3/uL (2.3-7.9); NEUT % 55.6 % (47.0-73.0); PLATELET COUNT AUTOMATED 177 10*3/uL (130-400); RED BLOOD COUNT 3.08 10*6/uL (4.10-5.10); RED CELL DISTRI WIDTH 16.8 % (0-14.5)
--- NOTE | 2018-02-20 08:25 | NUR ---
Spoke to David from [facility]. They are able to accept patient. Her OP dialysis schedule would be TTS at 11am. Will notify patient and asked about transportation.
--- NOTE | 2018-02-20 08:30 | NUR ---
Filtering Machine Tender Helper in to see patient. Discussed dialysis days being TTS at 11am at the [facility] here in [place]. She is aware of the location of [facility] facility. For transportation she states she has her , mother, and [id number]. Explained [facility] would be another option for transportation if needed but they need an advance notice, she verbalized an understanding. When medically stable she will be discharged to home.
[2018-02-20 08:33] LABS: ALBUMIN 3.4 gm/dl (3.1-4.5); CREATININE 5.51 mg/dL (0.55-1.02); PHOSPHOROUS 4.5 mg/dL (2.5-4.9); POTASSIUM 4.2 mmol/L (3.5-5.1); TOTAL PROTEIN 7.4 gm/dL (6.4-8.2)
[2018-02-20 12:00] VITALS: BP 98/67
[2018-02-20] MEDS ORDERED: CALCIUM ACETAT667 MG PO (13:09)
[2018-02-20] MEDS ORDERED: AMLODIPINE BESYL5 MG PO (13:09)
[2018-02-20] MEDS ORDERED: VITAMIN D32000 UNI1 PO (13:09)
[2018-02-20] MEDS ORDERED: NORMODYNE,TRAN200 MG PO (13:09)
[2018-02-20] MEDS ORDERED: LISINOPRIL20 MG PO (13:09)
[2018-02-20] MEDS ORDERED: FEROSUL325 MG PO (13:09)
--- NOTE | 2018-02-20 13:09 | NUR ---
Spoke to Arlet at [facility] regarding dialysis today. [facility] no longer does dialysis here at the hospital. They use [facility] out of [place]. Arlet stated to call their clinical resource manager, Joyce Barclay. Message left for Joyce Barclay, , regarding whether patient would be getting dialysis today. Discussed with patient possibility of dialysis today and she states she doesn't believe so because she would have completed it by now. Spoke to [facility]'s answering service regarding possibility of discharge today and dialysis starting Saturday. Awaiting return call. Hospitalist nurse director notified.
--- NOTE | 2018-02-20 13:25 | NUR ---
Spoke to Dr. Morel regarding possibility of patient being discharged today and OP dialysis starting Saturday. He stated it was fine for her to be discharged today and for OP dialysis to start on Saturday. Dr. Reyes notified. Spoke to David at [facility] regarding patient being discharged and OP dialysis starting on Saturday. Patient informed.
--- NOTE | 2018-02-20 14:30 | NUR ---
SPOKE WITH REGARDING DISCHARGE INSTRUCTIONS.
[2018-02-20 14:56] VITALS: BP 128/69
--- NOTE | 2018-02-20 15:04 | NUR ---
Discharge instructions reviewed with patient/family. Patient receptive and verbalizes understanding. Follow-up care arranged. Written instructions given to patient/family. ELVIRA CHANDLER.
[2018-02-24 15:06] LABS: ORGANISM ID Final report (.)
== END 2018-02-20 15:04 | disposition home or self-care (01) | DRG 304 ==
LOC: ED 17:01 → EDHOLD 18:40 → 4E 18:40 → ICCU 19:23 → 4E 02-17 13:53
PROVIDERS: Family Medicine; Internal Medicine; Internal Medicine Nephrology; Nurse Practitioner Family; Student in an Organized Health Care Education/Training Program; ADMIT Emergency Medicine
PROC: 02HV33Z Insertion of Infusion Device into Superior Vena Cava, Percutaneous Approach (ICD-10-PCS; principal; 2018-02-16)
PROC: 5A1D70Z Performance of Urinary Filtration, Intermittent, Less than 6 Hours Per Day (ICD-10-PCS; 2018-02-16)
PROC: B548ZZA Ultrasonography of Superior Vena Cava, Guidance (ICD-10-PCS; 2018-02-16)
PROC: B518ZZA Fluoroscopy of Superior Vena Cava, Guidance (ICD-10-PCS; 2018-02-16)
PROC: 5A1D70Z Performance of Urinary Filtration, Intermittent, Less than 6 Hours Per Day (ICD-10-PCS; 2018-02-17)
DX: I16.1 Hypertensive emergency (principal); N17.0 Acute kidney failure with tubular necrosis; N18.6 End stage renal disease; R78.81 Bacteremia; E87.2 Acidosis; Z68.41 Body mass index [BMI] 40.0-44.9, adult; N25.81 Secondary hyperparathyroidism of renal origin; I12.0 Hypertensive chronic kidney disease with stage 5 chronic kidney disease or end stage renal disease; J20.9 Acute bronchitis, unspecified; B96.89 Other specified bacterial agents as the cause of diseases classified elsewhere; R07.9 Chest pain, unspecified; E87.6 Hypokalemia; F17.210 Nicotine dependence, cigarettes, uncomplicated; K21.9 Gastro-esophageal reflux disease without esophagitis; D50.9 Iron deficiency anemia, unspecified; E66.9 Obesity, unspecified; F32.9 Major depressive disorder, single episode, unspecified; F41.9 Anxiety disorder, unspecified; E66.01 Morbid (severe) obesity due to excess calories; E55.9 Vitamin D deficiency, unspecified; Z99.2 Dependence on renal dialysis; Z88.0 Allergy status to penicillin; Z90.49 Acquired absence of other specified parts of digestive tract; Z82.49 Family history of ischemic heart disease and other diseases of the circulatory system; Z83.3 Family history of diabetes mellitus; Z80.9 Family history of malignant neoplasm, unspecified; Z79.899 Other long term (current) drug therapy

== ENCOUNTER 2019-03-05 15:29 | Inpatient (IN) | payer MEDICARE, MEDICAID ==
[~2019-03-05] VITALS: Ht 180.3 cm; Wt 143.8 kg
[~2019-03-05 15:29] MED LIST changes: +AMLODIPINE BESYL5 MG PO; +CALCIUM ACETAT667 MG PO; +FEROSUL325 MG PO; +LISINOPRIL20 MG PO; +NORMODYNE,TRAN200 MG PO; +VITAMIN D32000 UNI1 PO
[2019-03-05 15:40] VITALS: BP 175/83
[2019-03-05 17:58] LABS: BASO % 0.4 % (0.0-1.0); EOS # 0.3 10*3/uL (0.0-0.4); EOS % 6.3 % (1.0-4.0); HEMATOCRIT 25.7 % (37.0-47.0); LYMPH # 1.3 10*3/uL (1.3-4.4); LYMPH % 27.8 % (27.0-41.0); MEAN CELL VOLUME 93.5 fl (81.0-99.0); MEAN CORPUSCULAR HGB 29.1 pg (27.0-31.0); MEAN CORPUSCULAR HGB CONC 31.1 g/dl (33.0-37.0); MEAN PLATELET VOLUME 9.4 fl (9.6-12.3); MONO # 0.4 10*3/uL (0.1-1.0); MONO % 7.9 % (3.0-9.0); NEUT # 2.8 10*3/uL (2.3-7.9); NEUT % 57.4 % (47.0-73.0); PLATELET COUNT AUTOMATED 155 10*3/uL (130-400); RED BLOOD COUNT 2.75 10*6/uL (4.10-5.10); RED CELL DISTRI WIDTH 15.3 % (0-14.5); WHITE BLOOD COUNT 4.8 10*3/uL (4.8-10.8)
[2019-03-05 18:13] LABS: ACT PARTIAL THROMBO TIME 34.5 SECONDS (20.0-32.1); INTERNATIONAL NORM RATIO 0.9 (2.0-3.5)
[2019-03-05 18:16] LABS: ALBUMIN 3.6 gm/dl (3.1-4.5); ALKALINE PHOSPHATASE 70 U/L (45-117); BUN 101 mg/dl (7-24); CHLORIDE 114 mmol/L (98-107); POTASSIUM 4.1 mmol/L (3.5-5.1); SGPT/ALT 12 U/L (12-78); SODIUM 141 mmol/L (136-145)
[2019-03-05 18:20] LABS: SGOT/AST < 3 IU/L (3-35); TROPONIN I < 0.015 ng/ml (<0.045)
[2019-03-06 02:14] VITALS: BP 157/86
[2019-03-06 06:10] VITALS: BP 144/72
[2019-03-06 09:13] LABS: BASO % 0.4 % (0.0-1.0); EOS # 0.3 10*3/uL (0.0-0.4); EOS % 5.1 % (1.0-4.0); HEMATOCRIT 23.4 % (37.0-47.0); HEMOGLOBIN 7.5 g/dl (12.0-16.0); LYMPH # 1.6 10*3/uL (1.3-4.4); LYMPH % 31.3 % (27.0-41.0); MEAN CELL VOLUME 91.8 fl (81.0-99.0); MEAN CORPUSCULAR HGB 29.4 pg (27.0-31.0); MEAN CORPUSCULAR HGB CONC 32.1 g/dl (33.0-37.0); MEAN PLATELET VOLUME 10.2 fl (9.6-12.3); MONO # 0.4 10*3/uL (0.1-1.0); MONO % 7.7 % (3.0-9.0); NEUT # 2.8 10*3/uL (2.3-7.9); NEUT % 55.1 % (47.0-73.0); PLATELET COUNT AUTOMATED 140 10*3/uL (130-400); RED BLOOD COUNT 2.55 10*6/uL (4.10-5.10); RED CELL DISTRI WIDTH 15.2 % (0-14.5); WHITE BLOOD COUNT 5.1 10*3/uL (4.8-10.8)
[2019-03-06 09:22] LABS: INTERNATIONAL NORM RATIO 0.9 (2.0-3.5)
[2019-03-06 09:33] LABS: ALBUMIN 3.1 gm/dl (3.1-4.5); CREATININE 12.1 mg/dL (0.55-1.02); PHOSPHOROUS 8.1 mg/dL (2.5-4.9); POTASSIUM 4.4 mmol/L (3.5-5.1); TOTAL PROTEIN 6.2 gm/dL (6.4-8.2)
[2019-03-06 09:37] LABS: THYROID STIM HORMONE (HS) 3.06 uIU/ml (0.358-4.75)
[2019-03-06 10:02] LABS: VITAMIN D, 25-HYDROXY 15.6 ng/mL (30-100)
[2019-03-06] MEDS ORDERED: AMLODIPINE BESY10 MG PO (10:13)
[2019-03-06] MEDS ORDERED: IRON325 M1 PO (10:16)
[2019-03-06 12:00] VITALS: BP 152/74
== END 2019-03-06 15:08 | disposition home or self-care (01) | DRG 947 ==
LOC: ED 15:29 → EDHOLD 18:38 → 4E 03-06 09:03
PROVIDERS: Family Medicine; Student in an Organized Health Care Education/Training Program; ADMIT Internal Medicine
DX: R53.1 Weakness (principal); N18.6 End stage renal disease; I12.0 Hypertensive chronic kidney disease with stage 5 chronic kidney disease or end stage renal disease; E87.2 Acidosis; F33.9 Major depressive disorder, recurrent, unspecified; E83.51 Hypocalcemia; D63.1 Anemia in chronic kidney disease; D72.1 Eosinophilia; E87.8 Other disorders of electrolyte and fluid balance, not elsewhere classified; F41.9 Anxiety disorder, unspecified; F17.210 Nicotine dependence, cigarettes, uncomplicated; Z99.2 Dependence on renal dialysis; Z88.0 Allergy status to penicillin; Z90.49 Acquired absence of other specified parts of digestive tract; Z83.3 Family history of diabetes mellitus; Z82.49 Family history of ischemic heart disease and other diseases of the circulatory system; Z79.899 Other long term (current) drug therapy

== ENCOUNTER 2019-07-14 21:17 | Inpatient (IN) | payer MEDICARE, MEDICAID ==
[~2019-07-14] VITALS: Ht 180.3 cm; Wt 138.0 kg
[~2019-07-14 21:17] MED LIST changes: +AMLODIPINE BESY10 MG PO; +IRON325 M1 PO
[2019-07-14 21:25] VITALS: BP 124/51
[2019-07-14 22:01] LABS: BASO % 0.2 % (0.0-1.0); EOS # 0.2 10*3/uL (0.0-0.4); HEMATOCRIT 24.9 % (37.0-47.0); LYMPH # 0.9 10*3/uL (1.3-4.4); LYMPH % 16.9 % (27.0-41.0); MEAN CORPUSCULAR HGB 27.7 pg (27.0-31.0); MEAN CORPUSCULAR HGB CONC 33.3 g/dl (33.0-37.0); MEAN PLATELET VOLUME 8.8 fl (9.6-12.3); MONO # 0.3 10*3/uL (0.1-1.0); MONO % 6.4 % (3.0-9.0); NEUT # 3.9 10*3/uL (2.3-7.9); NEUT % 72.9 % (47.0-73.0); PLATELET COUNT AUTOMATED 74 10*3/uL (130-400); RED CELL DISTRI WIDTH 14.6 % (0-14.5); WHITE BLOOD COUNT 5.3 10*3/uL (4.8-10.8)
[2019-07-14 22:26] LABS: ALBUMIN 4.2 gm/dl (3.1-4.5)
[2019-07-14 22:40] LABS: CREATININE 28.1 mg/dL (0.55-1.02)
[2019-07-15 01:19] VITALS: BP 137/61
--- NOTE | 2019-07-15 01:19 | NUR ---
A 38, admitted to [facility], under the services of GILDA Segovia DO with a diagnosis of RENAL FAILURE. Chief complaint is NONCOMPLIANCE. Patient arrived via stretcher from ER. Monitor applied. Initial assessment completed. Vital signs taken and recorded. GILDA SEGOVIA DO notified of admission to the unit. Orders received. See assessment for past medical history, medications and allergies. Patient and/or family oriented to unit. [facility] visitation policy reviewed. Clothing/patient valuable form completed. MAULIK FRANCOIS
[2019-07-15] MEDS ORDERED: ARMOUR THYROID180 MG PO (01:34)
[2019-07-15] MEDS ORDERED: CALCIUM500 M1 PO (01:34)
[2019-07-15] MEDS ORDERED: ASPIR 8181 MG PO (01:34)
[2019-07-15] MEDS ORDERED: K-PHOS NEUTRAL250 MG PO (01:35)
[2019-07-15] MEDS ORDERED: LEVOTHYROXINE50 MCG PO (01:36)
[2019-07-15] MEDS ORDERED: CALCIUM ACETAT667 MG PO (01:36)
[2019-07-15 04:00] VITALS: BP 133/78
--- NOTE | 2019-07-15 04:07 | NUR ---
RESTING IN BED WITHOUT C/O'S. VSS. MONITOR NSR. HEP LOCK INTACT LH.
--- NOTE | 2019-07-15 06:13 | NUR ---
REMAINS WITHOUT C/O'S. RESTING IN BED WITH EYES CLOSED. APPEARS TO SLEEPING. CONDITION GUARDED.
--- NOTE | 2019-07-15 06:19 | NUR ---
INDU, ACUTE RN FOR DIALYSIS, NOTIFIED OF PT ADMISSION.SHE WILL MESSAGE DR. DAVILA.
[2019-07-15 08:00] VITALS: BP 116/52
--- NOTE | 2019-07-15 08:23 | NUR ---
Awake and alert. Ambulatory to BR. No distress. Dr. Reyes in to [facility].
[2019-07-15 08:26] LABS: BASO % 0.3 % (0.0-1.0); EOS # 0.2 10*3/uL (0.0-0.4); EOS % 2.7 % (1.0-4.0); LYMPH # 1.4 10*3/uL (1.3-4.4); LYMPH % 24.1 % (27.0-41.0); MEAN CELL VOLUME 83.9 fl (81.0-99.0); MEAN CORPUSCULAR HGB 27.9 pg (27.0-31.0); MEAN CORPUSCULAR HGB CONC 33.2 g/dl (33.0-37.0); MEAN PLATELET VOLUME 9.7 fl (9.6-12.3); MONO # 0.4 10*3/uL (0.1-1.0); MONO % 6.9 % (3.0-9.0); NEUT # 3.9 10*3/uL (2.3-7.9); PLATELET COUNT AUTOMATED 73 10*3/uL (130-400); RED BLOOD COUNT 2.98 10*6/uL (4.10-5.10); RED CELL DISTRI WIDTH 14.6 % (0-14.5)
[2019-07-15 09:03] LABS: POTASSIUM 3.9 mmol/L (3.5-5.1)
[2019-07-15 09:35] LABS: CREATININE 27.9 mg/dL (0.55-1.02)
--- NOTE | 2019-07-15 09:38 | NUR ---
[facility] CALLED WITH CRITICAL VALUES, dR. Naylor WAS PAGED.
--- NOTE | 2019-07-15 09:44 | NUR ---
aNTIHYPERTENSIVES WERE held pending possibility of dialysis and normotensive.
--- NOTE | 2019-07-15 11:39 | NUR ---
Dr. Mendenhall and Maria Teresa in to evaulate, orders recieved. Ambulatory to states voided a little. Informed of need for specimen. Emesis of dark green liquid noted to wash basin. Pt. ststes this is what she is throwing up.
[2019-07-15 12:00] VITALS: BP 136/67
--- NOTE | 2019-07-15 12:03 | NUR ---
To dialysis via bed.
--- NOTE | 2019-07-15 13:45 | NUR ---
Medicated for c/o nausea w/ emesis. See E-mar. Emesis of dark green liquid approx 30 mins. prior to dialysis. PER DEMARCUS RN. Emesis was pink tinged and mucoid.
[2019-07-15 16:00] VITALS: BP 145/55
--- NOTE | 2019-07-15 18:59 | NUR ---
Transfer to [facility] via w/c with belongings. Report to Mela.
--- NOTE | 2019-07-15 19:00 | NUR ---
PATIENT REFUSED WOUND PHOTOS.
--- NOTE | 2019-07-15 19:00 | NUR ---
PATIENT ASSESSMENT COMPLETE AT THIS TIME. NOTICED PATIENT WAS BLEEDING IN HER PELVIC REGION ON THE LEFT SIDE. TRIED TO CLEAN IT UP AND PATIENT WAS TIRED AND SAID SHE WASN'T SURE WHAT IT WAS AND NOT TO BOTHER WITH IT AT THIS TIME.
--- NOTE | 2019-07-15 19:00 | NUR ---
ASSUMED CARE OF PATIENT AT THIS TIME. PATIENT RESTING IN BED. RESPS EASY AND REGULAR. DENIES ANY COMPLAINTS/NEEDS AT THIS TIME. ASSESSMENT COMPLETE. CALL LIGHT IN REACH. WILL MONITOR.
[2019-07-15 20:00] VITALS: BP 148/55
[2019-07-16] VITALS: BP 119/50
--- NOTE | 2019-07-16 01:06 | NUR ---
PATIENT IN BED SLEEPING. RESPS EASY AND REGULAR. NO APPARENT SIGNS/SYMPTOMS OF DISTRESS NOTED. CALL LIGHT IN REACH. WILL CONTINUE TO MONITOR.
--- NOTE | 2019-07-16 03:41 | NUR ---
MARINA LIAO [id number] Please refer to the physician's history and physical for past medical history, comorbid conditions, and allergies. Diagnosis: RENAL FAILURE ACUTE ON CHRONIC HYPOCALCEMIA Devin Score: 22,LOW OR NO RISK WOUND DESCRIPTIONS: Wound Number: 1 Location of the wound: Left pubic area Type of wound: nodule Size: 3.0cm x 2.0cm x 0.1cm Tunneling: none Undermining: none Sinus Tract: none Presence of Exudate: Serosanguineous Amount: Light Color: Red, pink, brown Odor: Foul Periwound Skin Appearance: Normal Wound edges: approximated Pain (associated with wound): none at time of assessment How does patient state this happened? pt stated she has had this more for year she scratched it and caused it to bleed Surface the patient is resting on: Isoflex SKIN PREVENTION RECOMMENDATION: 1. Pressure redistribution support surface as appropriate 2. Elevate heels 3. Remove boots/TEDS every shift and reapply 4. Head of bed 30 degrees as tolerated 5. Assess nutrition and hydration 6. Manage moisture 7. Avoid the use of containment devices while in bed 8. Use absorptive products on surfaces limit layers of linens on bed 9. Turn and reposition every 1-2 hours in bed and every 1 hour in chair as tolerated 10. Weight shifts every 15 minutes while up in chair 11. Offloading with pillows or device to keep heels elevated off bed 12. Monitor skin at least every shift 13. Inspect under medical devices twice a day WOUND TREATMENT RECOMMENDATIONS: consult Dr. Cadet for evaluation Cleanse left pubic area with nss and apply bactroban and cover with dsd bid. Patient states she will follow up with dermatology when she is discharged
--- NOTE | 2019-07-16 05:41 | NUR ---
Dr. Pleitez notified of wound care recommendations.
[2019-07-16 07:15] LABS: BASO % 0.3 % (0.0-1.0); EOS # 0.1 10*3/uL (0.0-0.4); EOS % 1.8 % (1.0-4.0); HEMATOCRIT 23.5 % (37.0-47.0); LYMPH # 0.8 10*3/uL (1.3-4.4); LYMPH % 21.2 % (27.0-41.0); MEAN CELL VOLUME 81.3 fl (81.0-99.0); MEAN CORPUSCULAR HGB 27.3 pg (27.0-31.0); MEAN CORPUSCULAR HGB CONC 33.6 g/dl (33.0-37.0); MEAN PLATELET VOLUME 9.6 fl (9.6-12.3); MONO # 0.4 10*3/uL (0.1-1.0); MONO % 10.3 % (3.0-9.0); NEUT # 2.6 10*3/uL (2.3-7.9); NEUT % 65.9 % (47.0-73.0); PLATELET COUNT AUTOMATED 69 10*3/uL (130-400); RED BLOOD COUNT 2.89 10*6/uL (4.10-5.10); RED CELL DISTRI WIDTH 14.3 % (0-14.5)
--- NOTE | 2019-07-16 07:30 | NUR ---
PATIENT TAKEN TO DIALYSIS AT THIS TIME.
[2019-07-16 07:51] LABS: ALBUMIN 3.9 gm/dl (3.1-4.5); CREATININE 17.2 mg/dL (0.55-1.02); TOTAL PROTEIN 7.6 gm/dL (6.4-8.2)
[2019-07-16 07:52] LABS: POTASSIUM 2.9 mmol/L (3.5-5.1)
[2019-07-16 08:00] VITALS: BP 133/67
--- NOTE | 2019-07-16 08:09 | NUR ---
PHYSICAL THERAPY Screen received pt admitted from home with nausea and vomitting, pt had not gone for dialysis treatment for several weeks. Please consult PT if pt has a functional decline from baseline, thank you. Mery Gabriel PT
--- NOTE | 2019-07-16 08:19 | NUR ---
Not available for echo at this time.
--- NOTE | 2019-07-16 09:12 | NUR ---
MEDICATED WITH PRN ZOFRAN PER ORDER AND REQUEST.
--- NOTE | 2019-07-16 10:00 | NUR ---
Nursing screen received and chart reviewed. Patient admitted for renal failure, nausea and vomitting. Patient recently missed many dialysis treatments. If patient has a decline in ADLs, transfers, and mobility, please send OT orders. Thank you. Magali Zhao OTR/L
[2019-07-16 12:00] VITALS: BP 140/56
[2019-07-16 16:00] VITALS: BP 146/51
--- NOTE | 2019-07-16 19:58 | NUR ---
zofran given per order for nausea. see mar.
[2019-07-16 20:00] VITALS: BP 134/51
--- NOTE | 2019-07-16 20:55 | NUR ---
ZOFRAN HELPED WITH NAUSEA PER PATIENT.
--- NOTE | 2019-07-16 21:30 | NUR ---
PLT LOW AND HEPARIN HELD.
[2019-07-17] VITALS: BP 129/45
--- NOTE | 2019-07-17 00:48 | NUR ---
24 HR chart check completed.
--- NOTE | 2019-07-17 02:19 | NUR ---
ALERT SITTING UP IN BED. NO C/O VOICED. NO NEEDS AT THIS TIME. ENCOURAGE USE OF CALL LIGHT.
[2019-07-17 06:16] LABS: ALBUMIN 3.8 gm/dl (3.1-4.5); CREATININE 11.1 mg/dL (0.55-1.02); POTASSIUM 3.1 mmol/L (3.5-5.1); TOTAL PROTEIN 7.7 gm/dL (6.4-8.2)
--- NOTE | 2019-07-17 06:24 | NUR ---
CALLED DR. MARVIN WITH CRITICAL [facility] 6.9. NO NEW ORDERS RECEIVED.
[2019-07-17 06:25] LABS: BASO % 0.3 % (0.0-1.0); EOS # 0.1 10*3/uL (0.0-0.4); EOS % 2.4 % (1.0-4.0); HEMATOCRIT 25.1 % (37.0-47.0); LYMPH % 26.6 % (27.0-41.0); MEAN CELL VOLUME 82.6 fl (81.0-99.0); MEAN CORPUSCULAR HGB 27.3 pg (27.0-31.0); MEAN CORPUSCULAR HGB CONC 33.1 g/dl (33.0-37.0); MEAN PLATELET VOLUME 10.8 fl (9.6-12.3); MONO # 0.5 10*3/uL (0.1-1.0); MONO % 14.4 % (3.0-9.0); NEUT # 2.1 10*3/uL (2.3-7.9); NEUT % 55.8 % (47.0-73.0); PLATELET COUNT AUTOMATED 80 10*3/uL (130-400); RED BLOOD COUNT 3.04 10*6/uL (4.10-5.10); RED CELL DISTRI WIDTH 14.3 % (0-14.5); WHITE BLOOD COUNT 3.8 10*3/uL (4.8-10.8)
[2019-07-17 08:00] VITALS: BP 132/64
[2019-07-17 12:00] VITALS: BP 133/50
--- NOTE | 2019-07-17 13:18 | NUR ---
CONTINUES TO DENY NEEDS ON DISCHARGE. WILL CONTINUE TO FOLLOW.
[2019-07-17 16:00] VITALS: BP 126/64
[2019-07-17 20:00] VITALS: BP 134/66
--- NOTE | 2019-07-17 20:00 | NUR ---
Hep Lock discontinued L HAND. Site symptomatic, PAINFUL. Pressure applied. Sterile dressing applied. LEE HUNT
--- NOTE | 2019-07-17 20:05 | NUR ---
IV started left arm with #22 protective cath after 0 attempts. Site prepped with Chloroprep. Sterile dressing applied. Patient tolerated procedure well. LEE HUNT
[2019-07-18] VITALS: BP 164/68
--- NOTE | 2019-07-18 | NUR ---
PATIENT VOICED NO COMPLAINTS. NO DISTRESS NOTED. CALL LIGHT WITHIN REACH
[2019-07-18 06:14] LABS: BASO % 0.8 % (0.0-1.0); EOS # 0.2 10*3/uL (0.0-0.4); EOS % 5.9 % (1.0-4.0); HEMATOCRIT 26.3 % (37.0-47.0); LYMPH # 1.1 10*3/uL (1.3-4.4); LYMPH % 29.1 % (27.0-41.0); MEAN CELL VOLUME 83.5 fl (81.0-99.0); MEAN CORPUSCULAR HGB 27.3 pg (27.0-31.0); MEAN CORPUSCULAR HGB CONC 32.7 g/dl (33.0-37.0); MEAN PLATELET VOLUME 10.3 fl (9.6-12.3); MONO # 0.4 10*3/uL (0.1-1.0); MONO % 11.5 % (3.0-9.0); NEUT % 52.4 % (47.0-73.0); PLATELET COUNT AUTOMATED 83 10*3/uL (130-400); RED BLOOD COUNT 3.15 10*6/uL (4.10-5.10); RED CELL DISTRI WIDTH 14.1 % (0-14.5); WHITE BLOOD COUNT 3.8 10*3/uL (4.8-10.8)
[2019-07-18 06:30] LABS: CREATININE 12.8 mg/dL (0.55-1.02); POTASSIUM 2.9 mmol/L (3.5-5.1); TOTAL PROTEIN 7.9 gm/dL (6.4-8.2)
[2019-07-18 08:00] VITALS: BP 154/68
--- NOTE | 2019-07-18 09:45 | NUR ---
PT TRANSFERRED TO HEMODIALYSIS ROOM VIA BED FOR DIALYSIS.
[2019-07-18 12:00] VITALS: BP 177/89
[2019-07-18 16:00] VITALS: BP 129/69
--- NOTE | 2019-07-18 17:44 | NUR ---
MESSAGE LEFT FOR DR ASIF VIA 'S ANSWERING SERVICE TO PLEASE RETURN CALL REGARDING BP AND PT MEDICATIONS.
--- NOTE | 2019-07-18 17:48 | NUR ---
NORMODYNE AND CATAPRES HELD PER DR KENDALL'S ORDER. PT BP 129/69.
[2019-07-18 20:00] VITALS: BP 143/61
--- NOTE | 2019-07-18 20:00 | NUR ---
PATIENT ASLEEP, EYES CLOSED. RESP ARE ERND ON ROOM AIR. NO OVERT DISTRESS NOTED. CALL LIGHT LEFT WITHIN REACH
[2019-07-19] VITALS: BP 142/60
[2019-07-19 08:07] LABS: ALBUMIN 3.9 gm/dl (3.1-4.5); CREATININE 8.56 mg/dL (0.55-1.02); POTASSIUM 3.1 mmol/L (3.5-5.1)
[2019-07-19] MEDS ORDERED: Vitamin D (50,000 UN PO (09:24)
[2019-07-19] MEDS ORDERED: Rocaltrol0.25 MCG PO (09:24)
--- NOTE | 2019-07-19 11:23 | NUR ---
PT REFUSES WOUNDCARE D/C PHOTOS D/T "STARTING MY PERIOD".
--- NOTE | 2019-07-19 11:38 | NUR ---
Discharge instructions reviewed with patient/family. Patient receptive and verbalizes understanding. Follow-up care arranged. Written instructions given to patient/family. QUEENIE VILLAREAL
== END 2019-07-19 11:38 | disposition home or self-care (01) | DRG 682 ==
LOC: ED 21:17 → ICCU 07-15 00:36 → EDHOLD 07-15 00:36 → ICCU 07-15 00:44 → 5E 07-15 18:27
PROVIDERS: Emergency Medicine; Internal Medicine; Registered Nurse; ADMIT Internal Medicine
PROC: 5A1D70Z Performance of Urinary Filtration, Intermittent, Less than 6 Hours Per Day (ICD-10-PCS; principal; 2019-07-15)
PROC: 5A1D70Z Performance of Urinary Filtration, Intermittent, Less than 6 Hours Per Day (ICD-10-PCS; 2019-07-16)
PROC: 5A1D70Z Performance of Urinary Filtration, Intermittent, Less than 6 Hours Per Day (ICD-10-PCS; 2019-07-18)
DX: I13.11 Hypertensive heart and chronic kidney disease without heart failure, with stage 5 chronic kidney disease, or end stage renal disease (principal); N18.6 End stage renal disease; N17.9 Acute kidney failure, unspecified; Z68.41 Body mass index [BMI] 40.0-44.9, adult; R11.2 Nausea with vomiting, unspecified; E83.51 Hypocalcemia; D69.6 Thrombocytopenia, unspecified; E83.39 Other disorders of phosphorus metabolism; R58 Hemorrhage, not elsewhere classified; F41.9 Anxiety disorder, unspecified; D63.1 Anemia in chronic kidney disease; E66.01 Morbid (severe) obesity due to excess calories; F17.210 Nicotine dependence, cigarettes, uncomplicated; I34.0 Nonrheumatic mitral (valve) insufficiency; I95.9 Hypotension, unspecified; F32.9 Major depressive disorder, single episode, unspecified; E87.6 Hypokalemia; Z71.6 Tobacco abuse counseling; Z99.2 Dependence on renal dialysis; Z90.49 Acquired absence of other specified parts of digestive tract; Z88.0 Allergy status to penicillin; Z98.891 History of uterine scar from previous surgery; Z82.49 Family history of ischemic heart disease and other diseases of the circulatory system; Z83.3 Family history of diabetes mellitus; Z91.15 Patient's noncompliance with renal dialysis; Z80.8 Family history of malignant neoplasm of other organs or systems; Z79.899 Other long term (current) drug therapy; Z79.82 Long term (current) use of aspirin; S05.12XA Contusion of eyeball and orbital tissues, left eye, initial encounter; X58.XXXA Exposure to other specified factors, initial encounter; Y93.9 Activity, unspecified; Y92.89 Other specified places as the place of occurrence of the external cause; Y99.8 Other external cause status

== ENCOUNTER 2019-10-30 17:05 | Inpatient (IN) | payer MEDICARE, MEDICAID ==
[~2019-10-30] VITALS: Ht 180.3 cm; Wt 124.8 kg
[~2019-10-30 17:05] MED LIST changes: +ARMOUR THYROID180 MG PO; +ASPIR 8181 MG PO; +CALCIUM500 M1 PO; +K-PHOS NEUTRAL250 MG PO; +LEVOTHYROXINE50 MCG PO; +Rocaltrol0.25 MCG PO; +Vitamin D (50,000 UN PO
[2019-10-30 17:14] VITALS: BP 141/55
[2019-10-30 18:04] LABS: BASO % 0.2 % (0.0-1.0); EOS # 0.5 10*3/uL (0.0-0.4); EOS % 7.6 % (1.0-4.0); LYMPH # 0.8 10*3/uL (1.3-4.4); LYMPH % 12.4 % (27.0-41.0); MEAN CELL VOLUME 88.2 fl (81.0-99.0); MEAN CORPUSCULAR HGB 26.9 pg (27.0-31.0); MEAN CORPUSCULAR HGB CONC 30.5 g/dl (33.0-37.0); MEAN PLATELET VOLUME 8.9 fl (9.6-12.3); MONO # 0.4 10*3/uL (0.1-1.0); MONO % 6.8 % (3.0-9.0); NEUT # 4.6 10*3/uL (2.3-7.9); NEUT % 72.5 % (47.0-73.0); PLATELET COUNT AUTOMATED 180 10*3/uL (130-400); RED BLOOD COUNT 1.86 10*6/uL (4.10-5.10); RED CELL DISTRI WIDTH 15.4 % (0-14.5); WHITE BLOOD COUNT 6.3 10*3/uL (4.8-10.8)
[2019-10-30 18:09] LABS: HEMATOCRIT 16.4 % (37.0-47.0)
[2019-10-30 18:25] LABS: PLATELET SUFFICIENCY NORMAL (NORMAL); TOTAL CELLS COUNTED 100 #CELLS
[2019-10-30 18:29] LABS: ALKALINE PHOSPHATASE 74 U/L (45-117); CHLORIDE 114 mmol/L (98-107); SGOT/AST 6 IU/L (3-35); SGPT/ALT 15 U/L (12-78); SODIUM 142 mmol/L (136-145); TOTAL PROTEIN 6.9 gm/dL (6.4-8.2)
[2019-10-30 18:31] LABS: TROPONIN I < 0.015 ng/ml (<0.045)
[2019-10-30 18:32] LABS: BUN 160 mg/dl (7-24)
--- NOTE | 2019-10-30 19:06 | NUR ---
NURSE TO NURSE FROM [facility].
[2019-10-30 19:36] VITALS: BP 138/50
--- NOTE | 2019-10-30 19:50 | NUR ---
PT DENIES HAVING ANY WOUNDS
[2019-10-30 20:00] VITALS: BP 127/56
--- NOTE | 2019-10-30 20:00 | NUR ---
A 39, admitted to , under the services of ELIZABETH Freedman DO with a diagnosis of RENAL FAILURE. HYPOCALCEMIA. Chief complaint is EDEMA. Patient arrived via bed from ER. Monitor applied. Initial assessment completed. Vital signs taken and recorded. ELIZABETH FREEDMAN DO notified of admission to the unit. Orders received. See assessment for past medical history, medications and allergies. Patient and/or family oriented to unit. [address] visitation policy reviewed. Clothing/patient valuable form completed. NO OPEN WOUNDS ON ADMISSION. VALERIO LORENZO
--- NOTE | 2019-10-30 20:20 | NUR ---
PT REFUSING TEDS D/T SWELLING TO BLE.
--- NOTE | 2019-10-30 20:48 | NUR ---
NEW PATIENT CONSULT CALLED INTO ANSWERING SERVICE FOR DR DAVILA. AWAITING CALL BACK.
--- NOTE | 2019-10-30 20:51 | NUR ---
DR MARVIN UP TO SIGN BLOOD TRANSFUSION CONSENT WITH PATIENT. STATES THAT THE BLOOD IS ON HOLD FOR NOW AND WILL MOST LIKELY GET TRANSFUSED IN THE AM WITH DIALYSIS. AWAITING CALL BACK FROM TECHNICAL SALES SUPPORT MANAGER DIVIDEND DEPOSIT VOUCHER CLERK FOR CLARIFICATION.
--- NOTE | 2019-10-30 20:53 | NUR ---
PT UNAWARE OF ALL MEDICATIONS TAKEN AT HOME. STATES SHE HAS BEEN OUT OF SEVERAL PRESCRIPTIONS FOR 3 WEEKS OR LONGER. WILL PASS ON TO AM SHIFT NURSE THAT MED REC NEEDS CLARIFIED WITH PHARMACY.
--- NOTE | 2019-10-30 21:56 | NUR ---
[facility] MADE AWARE OF PT ADMISSION AND POSSIBLE DIALYSIS IN AM.
--- NOTE | 2019-10-30 22:05 | NUR ---
CALL SENT OUT TO HIGH SCHOOL SOCIAL SCIENCE TEACHER FLYING INSTRUCTOR VIA ANSWERING SERVICE. AWAITING CALL BACK.
--- NOTE | 2019-10-30 22:11 | NUR ---
SPOKE WITH DR CRISTINA (BANK ACCOUNTANT) ABOUT PT ADMISSION TO FLOOR. STATES THAT THE PRIMARY TEAM IS TO HANDLE WHETHER BLOOD IS TO BE TRANFUSED TONIGHT OR NOT. ALSO STATES THAT THE PATIENT HAS "BURNED BRIDGES WITH THE DIALYSIS CLINIC IN [place] AND THAT [employer] WILL NEED TO BE CONSULTED TO FIND A NEW CLINIC FOR THIS PATIENT". HE DOES NOT BELIEVE THE DIALYSIS CLINIC HERE AT [facility] WILL TAKE THE PATIENT. DR MARVIN MADE AWARE OF THIS INFORMATION.
[2019-10-31] VITALS (13 sets, daily range): BP systolic 129–151; BP diastolic 53–70
[2019-10-31 06:27] LABS: MEAN CELL VOLUME 87.7 fl (81.0-99.0); MEAN CORPUSCULAR HGB 27.4 pg (27.0-31.0); MEAN CORPUSCULAR HGB CONC 31.2 g/dl (33.0-37.0); MEAN PLATELET VOLUME 8.4 fl (9.6-12.3); PLATELET COUNT AUTOMATED 185 10*3/uL (130-400); RED BLOOD COUNT 1.79 10*6/uL (4.10-5.10); RED CELL DISTRI WIDTH 15.2 % (0-14.5); WHITE BLOOD COUNT 6.6 10*3/uL (4.8-10.8)
[2019-10-31 06:31] LABS: HEMATOCRIT 15.7 % (37.0-47.0)
--- NOTE | 2019-10-31 06:32 | NUR ---
DR MARVIN NOTIFIED OF CRITICAL H&H 4.11/09.7.
[2019-10-31 06:41] LABS: CREATININE 19.9 mg/dL (0.55-1.02)
--- NOTE | 2019-10-31 06:49 | NUR ---
DR MARVIN NOTIFIED THAT DIALYSIS CALLED AND IS ABLE TO TAKE THE PATIENT.
[2019-10-31 06:50] LABS: FREE T4 0.9 ng/dl (0.76-1.46); THYROID STIM HORMONE (HS) 3.32 uIU/ml (0.358-4.75)
[2019-10-31 07:24] LABS: TOTAL CELLS COUNTED 100 #CELLS; VITAMIN D, 25-HYDROXY 17.4 ng/mL (30-100)
[2019-10-31 07:25] LABS: ACANTHOCYTES FEW; BURR CELLS FEW; OVALOCYTES FEW; PLATELET SUFFICIENCY NORMAL (NORMAL)
[2019-10-31 08:01] LABS: HEMATOCRIT 16.4 % (37.0-47.0)
--- NOTE | 2019-10-31 08:02 | NUR ---
LAB CALLED WITH CRITICAL H&H OF 5.16.4. NOTIFIED. NO NEW ORDERS REC'D. PT ALREADY HAD BLOOD TRANSFUSION ON ORDER.
[2019-10-31 08:12] LABS: ALBUMIN 3.1 gm/dl (3.1-4.5); CREATININE 19.8 mg/dL (0.55-1.02)
--- NOTE | 2019-10-31 09:56 | NUR ---
MOST MEDS REMOVED FROM MED LIST LAST FILL WAS IN MAY AND SHOULD BE LONG OUT - PER PATIENT SHE ONLY TAKES IF & WHEN SHE THINKS ABOUT IT..NONCOMPLIANT WITH DIALYSIS ALSO.. PER [facility] THE PATIENT WILL NEED ANOTHER GROUP TO DO HER DIALYSIS THEY WILL NOT ACCEPT HER AN OUTPATIENT
--- NOTE | 2019-10-31 10:34 | NUR ---
REPORT RECEIVED FROM DIALYSIS NURSE - BLOOD COMPLETED AND POST BLOOD VITAL DOCUMENTED IN INTERVENTION SCREEN
--- NOTE | 2019-10-31 10:35 | NUR ---
PER DIALYSIS NURSE DR BATRES CAME TO SEE PATIENT.
--- NOTE | 2019-10-31 11:41 | NUR ---
met with patient, she resides at home with her flora and her 3 children, she reports that she had recent issues of being able to get around her apt and so she is asking about a wheelchair and a potty chair. she said they are also recomending an increase in dialysis, from 2 per week to 3.
--- NOTE | 2019-10-31 16:05 | NUR ---
PATIENT REQUESTED TUBIGRIPS BE REMOVED AFTER STARTING TO FEEL TIGHTER IN THE FEET
--- NOTE | 2019-10-31 17:07 | NUR ---
DR CRISTINA HERE AND SPOKE WITH THE PATIENT WHO IS AWARE THAT SHE MUST GO SOMEWHERE ELSE FOR HER DIALYSIS ONCE DISCHARGED
[2019-10-31 20:04] LABS: MEAN CELL VOLUME 85.4 fl (81.0-99.0); MEAN CORPUSCULAR HGB 27.7 pg (27.0-31.0); MEAN CORPUSCULAR HGB CONC 32.4 g/dl (33.0-37.0); MEAN PLATELET VOLUME 8.8 fl (9.6-12.3); PLATELET COUNT AUTOMATED 175 10*3/uL (130-400); RED BLOOD COUNT 2.13 10*6/uL (4.10-5.10); RED CELL DISTRI WIDTH 14.7 % (0-14.5); WHITE BLOOD COUNT 4.8 10*3/uL (4.8-10.8)
[2019-10-31 20:09] LABS: HEMATOCRIT 18.2 % (37.0-47.0)
[2019-10-31 20:25] LABS: TOTAL CELLS COUNTED 100 #CELLS
[2019-10-31 20:26] LABS: PLATELET SUFFICIENCY NORMAL (NORMAL)
[2019-10-31 20:27] LABS: BURR CELLS FEW; OVALOCYTES FEW; SCHISTOCYTES FEW
--- NOTE | 2019-10-31 23:54 | NUR ---
BLOOD TRANSFUSION INITIATED. PT EDUCATED ON S/S OF TRANSFUSION REACTION,& WHAT TO NOTIFY THIS RN OF. WILL MONITOR CONTINUOUSLY.
[2019-11-01] VITALS (16 sets, daily range): BP systolic 112–141; BP diastolic 48–80
--- NOTE | 2019-11-01 01:55 | NUR ---
INFUSION COMPLETE AT THIS TIME. PATIENT TOLERATED WELL. NO S/S OF TRANSFUSION REACTION. VITALS STABLE THROUGHOUT, WILL DOCUMENT POST INFUSION VITALS AT 0215.
[2019-11-01 06:56] LABS: ALBUMIN 2.9 gm/dl (3.1-4.5); CREATININE 14.8 mg/dL (0.55-1.02); POTASSIUM 3.3 mmol/L (3.5-5.1)
[2019-11-01 06:57] LABS: MEAN CELL VOLUME 86.2 fl (81.0-99.0); MEAN CORPUSCULAR HGB CONC 32.5 g/dl (33.0-37.0); PLATELET COUNT AUTOMATED 188 10*3/uL (130-400); RED BLOOD COUNT 2.32 10*6/uL (4.10-5.10); RED CELL DISTRI WIDTH 14.9 % (0-14.5); WHITE BLOOD COUNT 5.2 10*3/uL (4.8-10.8)
[2019-11-01 06:59] LABS: TOTAL PROTEIN 6.4 gm/dL (6.4-8.2)
[2019-11-01 08:01] LABS: BASOPHILS 1 % (0-1); TOTAL CELLS COUNTED 100 #CELLS
[2019-11-01 08:02] LABS: PLATELET SUFFICIENCY NORMAL (NORMAL); POLYCHROMASIA SLIGHT; SCHISTOCYTES FEW
[2019-11-01 08:03] LABS: ACANTHOCYTES FEW
[2019-11-01 11:06] LABS: HEP B CORE AB TOTAL Negative (Negative); HEPATITIS B SURFACE AB Reactive (.); HEPATITIS B SURFACE AG Negative (Negative); HEPATITIS C AB <0.1 (0.0-0.9)
--- NOTE | 2019-11-01 13:30 | NUR ---
BLOOD INITIATED AT THIS TIME.
--- NOTE | 2019-11-01 16:41 | NUR ---
TRANSFUSION COMPLETE; PATIENT TOLERATED WELL.
[2019-11-01 19:48] LABS: BASO % 0.2 % (0.0-1.0); EOS # 0.7 10*3/uL (0.0-0.4); EOS % 12.6 % (1.0-4.0); HEMATOCRIT 23.2 % (37.0-47.0); LYMPH # 0.8 10*3/uL (1.3-4.4); MEAN CELL VOLUME 86.6 fl (81.0-99.0); MEAN CORPUSCULAR HGB CONC 32.3 g/dl (33.0-37.0); MEAN PLATELET VOLUME 8.3 fl (9.6-12.3); MONO # 0.5 10*3/uL (0.1-1.0); MONO % 8.6 % (3.0-9.0); NEUT # 3.6 10*3/uL (2.3-7.9); NEUT % 64.2 % (47.0-73.0); PLATELET COUNT AUTOMATED 197 10*3/uL (130-400); RED BLOOD COUNT 2.68 10*6/uL (4.10-5.10); RED CELL DISTRI WIDTH 14.7 % (0-14.5); WHITE BLOOD COUNT 5.6 10*3/uL (4.8-10.8)
--- NOTE | 2019-11-01 20:40 | NUR ---
PT SITTING UP AT SIDE OF BED. RESP-EASY AND REGULAR. NO C/O AT THIS TIME. ENCOURAGED TO ELEVATE LEGS. CALL LIGHT IN REACH. SEE SHIFT ASSESSMENT.
[2019-11-02] VITALS: BP 136/64
--- NOTE | 2019-11-02 | NUR ---
PT SITTING UP IN BED. RESP-EASY AND REGULAR. NO C/O AT THIS TIME. CALL LIGHT IN REACH. SEE SHIFT ASSESSMENT.
--- NOTE | 2019-11-02 06:00 | NUR ---
SLEEPING IN BED. RESP-EASY AND REGULAR. CALL LIGHT IN REACH.
[2019-11-02 07:09] LABS: BASO % 0.2 % (0.0-1.0); EOS # 0.8 10*3/uL (0.0-0.4); EOS % 13.8 % (1.0-4.0); HEMATOCRIT 21.7 % (37.0-47.0); LYMPH # 1.1 10*3/uL (1.3-4.4); LYMPH % 19.4 % (27.0-41.0); MEAN CELL VOLUME 88.2 fl (81.0-99.0); MEAN CORPUSCULAR HGB 28.5 pg (27.0-31.0); MEAN CORPUSCULAR HGB CONC 32.3 g/dl (33.0-37.0); MONO # 0.6 10*3/uL (0.1-1.0); NEUT # 3.2 10*3/uL (2.3-7.9); NEUT % 56.3 % (47.0-73.0); PLATELET COUNT AUTOMATED 187 10*3/uL (130-400); RED BLOOD COUNT 2.46 10*6/uL (4.10-5.10); RED CELL DISTRI WIDTH 14.7 % (0-14.5); WHITE BLOOD COUNT 5.7 10*3/uL (4.8-10.8)
[2019-11-02 07:17] LABS: ALBUMIN 2.9 gm/dl (3.1-4.5); CREATININE 15.4 mg/dL (0.55-1.02); POTASSIUM 3.4 mmol/L (3.5-5.1); TOTAL PROTEIN 6.5 gm/dL (6.4-8.2)
--- NOTE | 2019-11-02 07:50 | NUR ---
PATIENT TAKEN OFF FLOOR FOR DIALYSIS AT THIS TIME.
[2019-11-02 12:00] VITALS: BP 135/66
--- NOTE | 2019-11-02 15:13 | NUR ---
Discharge instructions reviewed with patient/family. Patient receptive and verbalizes understanding. Follow-up care arranged. Written instructions given to patient/family. DIABETIC TEACHING GIVEN. INSTRUCTED ON HOW TO ADMINISTER INJECTIONS. PATIENT AWARE TO BROADCAST OPERATIONS TECHNICIAN PRESCRIPTIONS TOMORROW @ PHARMACY. AMBULATORY OFF FLOOR & PICKED UP BY SPOUSE. ANTHONY KRUSE
[2019-11-02 16:00] VITALS: BP 156/54
[2019-11-02 20:00] VITALS: BP 147/91
--- NOTE | 2019-11-02 21:20 | NUR ---
PT RESTING IN BED. RESP-EASY AND REGULAR. NO C/O AT THIS TIME. CALL LIGHT IN REACH. SEE SHIFT ASSESSMENT.
[2019-11-03] VITALS: BP 143/60
--- NOTE | 2019-11-03 00:10 | NUR ---
PT SLEEPING IN BED. RESP-EASY AND REGULAR. CALL LIGHT IN REACH. SEE SHIFT ASSESSMENT.
--- NOTE | 2019-11-03 06:30 | NUR ---
RESTING IN BED. NO C/O AT THIS TIME. CALL LIGHT IN REACH.
[2019-11-03 07:12] LABS: BASO % 0.5 % (0.0-1.0); EOS # 0.9 10*3/uL (0.0-0.4); EOS % 13.3 % (1.0-4.0); HEMATOCRIT 23.3 % (37.0-47.0); LYMPH # 1.4 10*3/uL (1.3-4.4); LYMPH % 22.3 % (27.0-41.0); MEAN CELL VOLUME 86.3 fl (81.0-99.0); MEAN CORPUSCULAR HGB 27.8 pg (27.0-31.0); MEAN CORPUSCULAR HGB CONC 32.2 g/dl (33.0-37.0); MEAN PLATELET VOLUME 9.3 fl (9.6-12.3); MONO # 0.7 10*3/uL (0.1-1.0); MONO % 10.9 % (3.0-9.0); NEUT # 3.4 10*3/uL (2.3-7.9); NEUT % 52.5 % (47.0-73.0); PLATELET COUNT AUTOMATED 229 10*3/uL (130-400); RED CELL DISTRI WIDTH 14.1 % (0-14.5); WHITE BLOOD COUNT 6.4 10*3/uL (4.8-10.8)
--- NOTE | 2019-11-03 07:30 | NUR ---
PT RESTING IN BED. VOICES NO CONCERNS AT THIS TIME. RESPS EASY AND NON LABORED. NO S/S OF DISTRESS NOTED.VSS. WHITE BOARD UPDATED. POC DISCUSSED W PT. A/O X3. R ARM FISTULA + BRUIT/THRILL. 2-3+BLE REMAINS-REFUSES TEDS/TUBIGRIPS.SPOTTY/RED RASH NOTED TO BLE WELL. LUNGS CLEAR. WILL CONTINUE TO MONITOR. CALL LIGHT WITHIN REACH
[2019-11-03 07:32] LABS: CREATININE 9.56 mg/dL (0.55-1.02); POTASSIUM 2.9 mmol/L (3.5-5.1); TOTAL PROTEIN 6.8 gm/dL (6.4-8.2)
--- NOTE | 2019-11-03 07:55 | NUR ---
PHYSICAL THERAPY Screen received, pt admitted from home for acute on chronic renal failure. Please consult PT if pts functional status declines from baseline. Thank you. Elver Jensen SPT Mery Gabriel PT
[2019-11-03 08:00] VITALS: BP 132/50
--- NOTE | 2019-11-03 08:00 | NUR ---
ATTEMPTED TO REACH DIALYSIS REGARDING PT TREATMENT TIME TODAY. NO ANSWER AT THIS TIME
--- NOTE | 2019-11-03 09:00 | NUR ---
Picker Tender in to talk to patient. Patient states lives at home with family. There are 15 steps in the home. Physician: ellen dangelo Pharmacy: [facility] Home health services: none Patient's level of ADLs: INDEPENDENT Patient has working utilities: all working DME: none Follow-up physician's appointment after d/c: will be made by hospitalist nurse director upon discharge Does patient want to access PORTAL?: no Discharge plan discussed with patient, she states she lives at home with family, she is independent in adls and ambulation, she was scheduled for dialysis treatments Saturday and Saturday but has not taked a treatment in a few months, patient stated she was tired and didn't want to answer any more of case managements questions, will visit at a later time. SETH COLINDRES
--- NOTE | 2019-11-03 09:44 | NUR ---
case management received a call that [facility], where patient had been receiving dialysis treatment, was not going to accept her back for treatment due to non compliance and failure to arrive at scheduled appointments, case management contacted other area dialysis clinics to see if they would be able to accept patient, contacted [facility] in [place], [place], spoke to Orestes, she stated they are a sister company to [facility] and when she checked with her boss, they are also unable to accept patient. case management also contacted [facility] in [facility], spoke to María, she stated she would talk with her director patient financial services but if patient was unable to return to her previous dialysis clinic, she was probably not going to be able to have treatment in their clinic, María will call case management back with manolo
[2019-11-03 12:16] LABS: BASO % 0.3 % (0.0-1.0); EOS # 0.7 10*3/uL (0.0-0.4); EOS % 11.1 % (1.0-4.0); HEMATOCRIT 24.5 % (37.0-47.0); LYMPH % 16.4 % (27.0-41.0); MEAN CELL VOLUME 86.6 fl (81.0-99.0); MEAN CORPUSCULAR HGB 27.6 pg (27.0-31.0); MEAN CORPUSCULAR HGB CONC 31.8 g/dl (33.0-37.0); MEAN PLATELET VOLUME 8.8 fl (9.6-12.3); MONO # 0.7 10*3/uL (0.1-1.0); MONO % 11.3 % (3.0-9.0); NEUT # 3.6 10*3/uL (2.3-7.9); NEUT % 60.1 % (47.0-73.0); PLATELET COUNT AUTOMATED 211 10*3/uL (130-400); RED BLOOD COUNT 2.83 10*6/uL (4.10-5.10)
[2019-11-03 12:27] LABS: ALBUMIN 3.2 gm/dl (3.1-4.5); CREATININE 9.93 mg/dL (0.55-1.02); POTASSIUM 3.6 mmol/L (3.5-5.1)
--- NOTE | 2019-11-03 12:43 | NUR ---
PT TAKEN OFF FLOOR TO DIALYSIS
--- NOTE | 2019-11-03 13:44 | NUR ---
CALLED FROM DIALYSIS NURSE. STATES PT WOULD LIKE SOMETHING FOR NAUSEA. MEDICATED PER ORDER. WILL CONTINUE TO MONITOR.
--- NOTE | 2019-11-03 15:36 | NUR ---
Nursing screen received and chart reviewed. Patient admitted from home with acute renal failure. If patient has a decline in ADLs, transfers, or functional mobility, please send OT orders. Thank you. Magali Zhao, OTR/L
[2019-11-03 16:00] VITALS: BP 126/56
--- NOTE | 2019-11-03 17:30 | NUR ---
PT BACK FROM DIALYSIS. VSS. RESPS EASY AND NON LABORED. NO S/S OF DISTRESS NOTED. PT REQUESTING ZOFRAN BEFORE HER DINNER ARRIVES. EDEMA NOTICABLY DECREASED. WILL CONTINUE TO MONITOR. CALL LIGHT WITHIN REACH.
[2019-11-03 20:00] VITALS: BP 122/57
--- NOTE | 2019-11-03 21:00 | NUR ---
PT SITTING UP IN BED. RESP-EASY AND REGULAR. NO C/O AT THIS TIME. TOLERATED PO MEDICATION. CALL LIGHT IN REACH.
[2019-11-04] VITALS: BP 129/51
--- NOTE | 2019-11-04 | NUR ---
SITTING UP IN BED. NO C/O AT THIS TIME. RESP-EASY AND REGULAR. CALL LIGHT IN REACH.
--- NOTE | 2019-11-04 06:15 | NUR ---
SITTING UP IN BED. NO C/O AT THIS TIME. CALL LIGHT IN REACH.
[2019-11-04 06:17] LABS: BASO % 0.4 % (0.0-1.0); EOS % 13.4 % (1.0-4.0); HEMATOCRIT 26.6 % (37.0-47.0); LYMPH # 1.7 10*3/uL (1.3-4.4); LYMPH % 23.4 % (27.0-41.0); MEAN CELL VOLUME 88.7 fl (81.0-99.0); MEAN CORPUSCULAR HGB 27.3 pg (27.0-31.0); MEAN CORPUSCULAR HGB CONC 30.8 g/dl (33.0-37.0); MONO # 0.8 10*3/uL (0.1-1.0); MONO % 11.5 % (3.0-9.0); NEUT # 3.6 10*3/uL (2.3-7.9); NEUT % 50.6 % (47.0-73.0); PLATELET COUNT AUTOMATED 238 10*3/uL (130-400); WHITE BLOOD COUNT 7.1 10*3/uL (4.8-10.8)
[2019-11-04 06:42] LABS: ALBUMIN 3.4 gm/dl (3.1-4.5); CREATININE 5.75 mg/dL (0.55-1.02); POTASSIUM 3.6 mmol/L (3.5-5.1); TOTAL PROTEIN 7.1 gm/dL (6.4-8.2)
[2019-11-04 08:00] VITALS: BP 134/60
--- NOTE | 2019-11-04 09:00 | NUR ---
case management visits with patient, educated her that case management contacted several dialysis companies and all of declined her due to her non compliance with dialysis treatment. educated patient to call and talk with her previous dialysis facility and try and make an agreement that she could return and attend her treatment sessions when they were scheduled, patient stated she would think about it
[2019-11-04 12:00] VITALS: BP 138/57
[2019-11-04 16:00] VITALS: BP 149/80
[2019-11-04 20:00] VITALS: BP 141/64
[2019-11-05] VITALS: BP 131/67
--- NOTE | 2019-11-05 01:53 | NUR ---
Patient resting quietly with no c/o discomfort. Respirations easy and regular. Vital signs stable. No overt distress. HARDEEP CARDOZO
--- NOTE | 2019-11-05 01:57 | NUR ---
24 HR chart check completed.
[2019-11-05 06:45] LABS: BASO # 0.1 10*3/uL (0.0-0.1); BASO % 0.5 % (0.0-1.0); EOS % 10.8 % (1.0-4.0); HEMATOCRIT 27.3 % (37.0-47.0); LYMPH # 2.1 10*3/uL (1.3-4.4); LYMPH % 23.1 % (27.0-41.0); MEAN CELL VOLUME 90.4 fl (81.0-99.0); MEAN CORPUSCULAR HGB 28.1 pg (27.0-31.0); MEAN CORPUSCULAR HGB CONC 31.1 g/dl (33.0-37.0); MEAN PLATELET VOLUME 8.7 fl (9.6-12.3); MONO # 0.9 10*3/uL (0.1-1.0); MONO % 10.2 % (3.0-9.0); NEUT % 54.9 % (47.0-73.0); PLATELET COUNT AUTOMATED 227 10*3/uL (130-400); RED BLOOD COUNT 3.02 10*6/uL (4.10-5.10); RED CELL DISTRI WIDTH 13.9 % (0-14.5); WHITE BLOOD COUNT 9.1 10*3/uL (4.8-10.8)
[2019-11-05 07:27] LABS: POTASSIUM 3.7 mmol/L (3.5-5.1)
[2019-11-05 07:39] LABS: ALBUMIN 3.3 gm/dl (3.1-4.5); CREATININE 7.73 mg/dL (0.55-1.02); TOTAL PROTEIN 6.9 gm/dL (6.4-8.2)
--- NOTE | 2019-11-05 07:56 | NUR ---
PT AT DIALYSIS AT THIS TIME.
[2019-11-05 08:00] VITALS: BP 126/96
--- NOTE | 2019-11-05 08:52 | NUR ---
METAL HANGING SUPERVISOR WENT TO SPEAK WITH THE PATIENT. PATIENT OUT OF ROOM FOR DIALSYS. METAL HANGING SUPERVISOR SPOKE WITH RN POULTRY PATHOLOGIST VARINDER AND ASKED THAT THIS METAL HANGING SUPERVISOR BE CONTACTED BACK TO WHEN PATIENT RETURNS TO THE FLOOR. CHUNG REACHED OUT TO [facility] AND SPOKE WITH LINH. LINH HAD JUST SPOKE WITH DR. DAVILA. LINH IS GOING TO SPEAK WITH HIS ADMINSTRATION AND THE BOARD OF ESRD TO SEE WHAT CAN BE DONE WITH THIS PATIENT. PER LINH THE PATIENT HAS DONE THIS APPROXIMATELY 4 TIMES. SHE WILL RECEIVE TREATMENT THEN GO 45-60 DAYS WITHOUT TREATMENT. LINH STATED HE WOULD CONTACT THIS METAL HANGING SUPERVISOR BACK WITHIN AN HOUR OR TWO WITH AN ANSWER.
--- NOTE | 2019-11-05 08:57 | NUR ---
PT GIVEN ZOFRAN FOR C/O NAUSEA. WILL MONITOR FOR EFFECTIVENESS. CALL LIGHT IN REACH.
--- NOTE | 2019-11-05 09:57 | NUR ---
ZOFRAN EFFECTIVE PER PT.
--- NOTE | 2019-11-05 11:29 | NUR ---
CHUNG RECEIVED CALL FROM [facility] HE IS WAITING ON A CALL BACK FROM HIS ADMIN. HE ASKED ABOUT THE FACILITIES ATTEMPTED, CHUNG EXPLAINED PER SETH-DISPLAY DEPARTMENT MANAGER. HE SAID HE WOULD CALL BACK AFTER SPEAKING TO THEM.
[2019-11-05 12:00] VITALS: BP 102/65
--- NOTE | 2019-11-05 14:00 | NUR ---
PT ASSISTED BACK TO ROOM. RESPIRATIONS EASY AND UNLABORED ON ROOM AIR. PT DENIES ANY DISTRESS AT THIS TIME. WILL CONTINUE TO MONITOR. CALL LIGHT IN REACH.
[2019-11-05 16:00] VITALS: BP 125/56
--- NOTE | 2019-11-05 17:00 | NUR ---
PT SITTING UP IN BED, EATING DINNER. NO S/S OF DISTRESS. STUDENT NURSES TO PASS PO MEDICATIONS. ASSESSMENT COMPLETE. CALL LIGHT IN REACH.
[2019-11-05 20:00] VITALS: BP 131/59
[2019-11-06] VITALS: BP 128/61
--- NOTE | 2019-11-06 01:29 | NUR ---
24 HR chart check completed.
--- NOTE | 2019-11-06 03:09 | NUR ---
SLEEPING NOT ACUTE DISTRESS NOTED.
[2019-11-06 08:00] VITALS: BP 124/60
--- NOTE | 2019-11-06 09:30 | NUR ---
case management visits with patient, again discussed with her dialysis treatment plan, educated her that the [facility] is not willing at this time to accept her back, Dr Morel is also not willing to follow her as an outpatient, discussed other dialysis treatment centers and asked if patient was willing to travel to [facility], she stated she really did not want to travel this far. she stated case management would need to set her up with transportation, educated her that case management would give her the resources to find transportation but she would need to contact the transportation company of her choice and set this up, she stated she has not been to any other dialysis clinics expect [facility] and wanted to go there. case management educated her they were working on this but this is a long process due to her non compliance in the past and clinics not wanting to accept her. case management and social services designee will follow
--- NOTE | 2019-11-06 10:34 | NUR ---
case management received a call from David at [facility], David stated when they decided not to accept patient back to their clinic it was based on her not following up in the clinic for over 30 days. he stated they followed medicare regulations that stated if a person fails to attend dialsis for 30 days and has no contact with the clinic they can discharge her from their clinic, he also stated they attempted to contact her within this 30 day period with no response from patient. David also stated she would be considered a new admission to their clinic and would review the new paperwork with no guarantees they would be able to take patient due to the clinic having a few chair times available, case management/executive secretary social welfare following
--- NOTE | 2019-11-06 10:51 | NUR ---
STRANDING MACHINE OPERATOR HELPER FAXED REFERRAL INCLUDING PATIENTS STATEMENT LETTER TO [facility] AND [facility].
--- NOTE | 2019-11-06 11:04 | NUR ---
BACK TENDER CYLINDER FAXED REFERRAL INCLUDING PATIENTS STATEMENT LETTER TO [facility] AND [facility].
[2019-11-06 12:00] VITALS: BP 132/50
--- NOTE | 2019-11-06 12:21 | NUR ---
[facility] DENIED THE PATIENT DUE TO HER HISTORY OF NONCOMPLIANCE. COTTON GINNER HELPER FAXED REFERRAL INCLUDING PATIENTS STATEMENT LETTER TO [facility] [place] FOR REVIEW.
--- NOTE | 2019-11-06 13:32 | NUR ---
SUPERVISOR FINE GRADING RECEIVED CALL OF THE PATIENT WANTING TO SPEAK WITH THIS SUPERVISOR FINE GRADING. SUPERVISOR FINE GRADING MET WITH PATIENT. PATIENT PROVIDED A SECOND STATEMENT LETTER FOR THIS SUPERVISOR FINE GRADING TO SEND OFF WITH THE REFERRALS. SUPERVISOR FINE GRADING WILL FAX THIS ADDTIONAL LETTER TO THE FACILITIES THIS PATIENT HAS BEEN REFERRED.
--- NOTE | 2019-11-06 13:49 | NUR ---
RADIOPHARMACIST RECEIVED CALL FROM [facility]. STEPHANIE IS LOADING THE PATIENTS REFERRAL INTO THE SYSTEM AND WILL BE REVIEWING IT.
[2019-11-06 16:00] VITALS: BP 116/65
[2019-11-06 20:00] VITALS: BP 130/63
[2019-11-07] VITALS: BP 131/85
--- NOTE | 2019-11-07 02:34 | NUR ---
ALERT SITTING UP WATCHING TV. NO ACUTE DISTRESS NOTED.
[2019-11-07 06:50] LABS: BASO # 0.1 10*3/uL (0.0-0.1); BASO % 0.5 % (0.0-1.0); EOS # 0.9 10*3/uL (0.0-0.4); EOS % 8.3 % (1.0-4.0); LYMPH # 2.6 10*3/uL (1.3-4.4); MEAN CELL VOLUME 89.5 fl (81.0-99.0); MEAN CORPUSCULAR HGB 27.8 pg (27.0-31.0); MEAN CORPUSCULAR HGB CONC 31.1 g/dl (33.0-37.0); MEAN PLATELET VOLUME 9.1 fl (9.6-12.3); MONO % 9.3 % (3.0-9.0); NEUT # 5.9 10*3/uL (2.3-7.9); NEUT % 56.1 % (47.0-73.0); PLATELET COUNT AUTOMATED 230 10*3/uL (130-400); RED BLOOD COUNT 3.13 10*6/uL (4.10-5.10); RED CELL DISTRI WIDTH 13.6 % (0-14.5); WHITE BLOOD COUNT 10.5 10*3/uL (4.8-10.8)
[2019-11-07 07:23] LABS: ALBUMIN 3.3 gm/dl (3.1-4.5); CREATININE 8.39 mg/dL (0.55-1.02); POTASSIUM 4.1 mmol/L (3.5-5.1); TOTAL PROTEIN 6.9 gm/dL (6.4-8.2)
--- NOTE | 2019-11-07 07:30 | NUR ---
TOOK OVER CARE OF PT. PT RESTING IN BED. RESPIRATIONS EASY AND UNLABORED ON ROOM AIR. NO S/S OF DISTRESS. PT DENIES PAIN OR SHORTNESS OF BREATH. SCHEDULED MEDICATION GIVEN AT THIS TIME. WILL CONTINUE TO MONITOR. SAFETY MEASURES IN PLACE. CALL LIGHT IN REACH.
[2019-11-07 08:00] VITALS: BP 148/61
--- NOTE | 2019-11-07 08:20 | NUR ---
PT TO DIALYSIS AT THIS TIME.
[2019-11-07 12:00] VITALS: BP 135/60
[2019-11-07 16:00] VITALS: BP 149/64
[2019-11-07 20:00] VITALS: BP 122/67
--- NOTE | 2019-11-07 20:17 | NUR ---
SITTING UP COLORING. NO ACUTE DISTRESS VOICED OR NOTED.
--- NOTE | 2019-11-07 21:17 | NUR ---
24 HR chart check completed.
[2019-11-08] VITALS: BP 119/67
[2019-11-08 08:00] VITALS: BP 125/41
--- NOTE | 2019-11-08 09:30 | NUR ---
MIRA JONES CNP, IN TO SEE PT. NEW ORDERS RECEIVED.
[2019-11-08 12:00] VITALS: BP 124/62
--- NOTE | 2019-11-08 14:14 | NUR ---
NOVEL CORONAVIRUS SPECIMAN SENT PER ORDER.
[2019-11-08 16:00] VITALS: BP 130/66
[2019-11-08 20:00] VITALS: BP 132/60
--- NOTE | 2019-11-08 20:00 | NUR ---
PATIENT SITTING IN BED DOING A CROSSWORD PUZZLE. REQUESTING A SANDWICH AT THIS TIME. DENIES PAIN. SANDWICH GIVEN PER REQUEST. BED IN LOWEST POSITION, CALL LIGHT IN REACH
--- NOTE | 2019-11-08 22:49 | NUR ---
PATIENT RESTING IN BED WITH NO S/S OF DISTRESS. BED IN LOWEST POSITION, CALL LIGHT IN REACH
[2019-11-09] VITALS: BP 144/64
--- NOTE | 2019-11-09 02:14 | NUR ---
PATIENT RESTING IN BED WITH NO S/S OF DISTRESS. RESPS EASY AND REGULAR. BED IN LOWEST POSITION, CALL LIGHT IN REACH
--- NOTE | 2019-11-09 02:17 | NUR ---
24 HR chart check completed.
--- NOTE | 2019-11-09 05:59 | NUR ---
PATIENT RESTING IN BED WITH NO S/S OF DISTRESS. BED IN LOWEST POSITION, CALL LIGHT IN REACH
--- NOTE | 2019-11-09 07:34 | NUR ---
SILVER MINER RETURNED CALL FOR [facility] AND LEFT MESSAGE FOR KAREN BARRAZA ASKING FOR A RETURN CALL. WILL AWAIT CALLBACK.
--- NOTE | 2019-11-09 07:43 | NUR ---
ASSESSMENT COMPLETE WITHOUT INCIDENCE. PT IS SLEEPING BUT AWAKENS EASILY. SHE VOICES NO COMPLAINTS AT THIS TIME. RESPIRATIONS ARE RELAXED AND REGULAR. CALL LIGHT WITHIN REACH, WILL CONTINUE TO MONITOR
[2019-11-09 08:00] VITALS: BP 126/50
--- NOTE | 2019-11-09 10:24 | NUR ---
RASPER MACHINE OPERATOR SPOKE TO [facility]H TRACY. THEY ARE ABLE TO ACCEPT THIS PATIENT ON A T-TH-S DIALYSIS SCHEDULE. RASPER MACHINE OPERATOR NOTIFIED LUCILA MEYERS. LUCILA MEYERS SPOKE WITH WHO STATED TO KEEP THE PATIENT HERE UNTIL AFTER TREATMENT TOMORROW AND DISCHARGE HER HOME. RASPER MACHINE OPERATOR SPOKE TO THE PATIENT. RASPER MACHINE OPERATOR EXPLAINED TO THE PATIENT THAT THIS IS HER FINAL CHANCE WITH [facility]. RASPER MACHINE OPERATOR EXPLAINED HER DIALYSIS SCHEDULE WILL BE T--S, RASPER MACHINE OPERATOR EXPLAINED SHE WILL HAVE A 6AM CHAIR TIME. RASPER MACHINE OPERATOR PROVIDED HER WITH THE CONTACT INFORMATION FOR CARTS AND FOR CCJFS TO ARRANGE TRANSPORTATION. PATIENT UNDERSTOOD.
--- NOTE | 2019-11-09 11:35 | NUR ---
DR DAVILA IN TO SEE PATIENT
[2019-11-09 12:00] VITALS: BP 128/56
[2019-11-09 16:00] VITALS: BP 144/56
--- NOTE | 2019-11-09 19:38 | NUR ---
PATIENT SITTING ON BEDSIDE PLAYING ON PHONE. DENIES NEEDS AT THIS TIME. STATES SHE IS HOPING TO GO HOME TOMORROW. POPSICLE GIVEN PER REQUEST. BED IN LOWEST POSITION, CALL LIGHT IN REACH
[2019-11-09 20:00] VITALS: BP 139/66
[2019-11-10] VITALS: BP 133/61
--- NOTE | 2019-11-10 02:03 | NUR ---
PATIENT RESTING IN BED WITH NO S/S OF DISTRESS. BED IN LOWEST POSITION, CALL LIGHT IN REACH
[2019-11-10 06:51] LABS: BASO # 0.1 10*3/uL (0.0-0.1); BASO % 0.8 % (0.0-1.0); HEMATOCRIT 32.4 % (37.0-47.0); LYMPH # 4.3 10*3/uL (1.3-4.4); LYMPH % 27.1 % (27.0-41.0); MEAN CELL VOLUME 89.5 fl (81.0-99.0); MEAN CORPUSCULAR HGB 28.2 pg (27.0-31.0); MEAN CORPUSCULAR HGB CONC 31.5 g/dl (33.0-37.0); MEAN PLATELET VOLUME 8.9 fl (9.6-12.3); MONO # 1.1 10*3/uL (0.1-1.0); MONO % 6.7 % (3.0-9.0); NEUT # 9.3 10*3/uL (2.3-7.9); NEUT % 58.7 % (47.0-73.0); PLATELET COUNT AUTOMATED 276 10*3/uL (130-400); RED BLOOD COUNT 3.62 10*6/uL (4.10-5.10); RED CELL DISTRI WIDTH 13.6 % (0-14.5); WHITE BLOOD COUNT 15.8 10*3/uL (4.8-10.8)
[2019-11-10 07:29] LABS: POTASSIUM 5.6 mmol/L (3.5-5.1)
[2019-11-10 07:41] LABS: ALBUMIN 3.9 gm/dl (3.1-4.5); CREATININE 10.4 mg/dL (0.55-1.02); TOTAL PROTEIN 8.3 gm/dL (6.4-8.2)
[2019-11-10 08:00] VITALS: BP 126/58
--- NOTE | 2019-11-10 08:05 | NUR ---
PT RESTING IN BED ON RIGHT SIDE. RESP-EASY AND REGULAR. NO C/O AT THIS TIME. CALL LIGHT IN REACH. SEE SHIFT ASSESSMENT.
--- NOTE | 2019-11-10 11:30 | NUR ---
PT IN DIALYSIS.
[2019-11-10] MEDS ORDERED: SEVELAMER HCL800 MG PO (12:54)
[2019-11-10] MEDS ORDERED: SODIUM BICARBO650 MG PO (12:54)
--- NOTE | 2019-11-10 15:40 | NUR ---
PT TOLERATED ROUTINE MED WITH NO PROBLEM. RESTING IN BED. CALL LIGHT IN REACH.
--- NOTE | 2019-11-10 16:50 | NUR ---
PT ESCORTED VIA WHEELCHAIR FOR DISCHARGE. HEPLOCK REMOVED 2X2 APPLIED. Discharge instructions reviewed with patient/family. Patient receptive and verbalizes understanding. Follow-up care arranged. Written instructions given to patient/family. LAKE SHAH
--- NOTE | 2019-11-11 13:23 | NUR ---
PATIENTS COVID RESULTS ARE BACK. SYSTEM DISPATCHER TO FAX TO [facility].
== END 2019-11-10 16:50 | disposition home or self-care (01) | DRG 683 ==
LOC: ED 17:05 → EDHOLD 19:06 → 4E 19:06
PROVIDERS: Internal Medicine; Internal Medicine Nephrology; Physician Assistant; Registered Nurse; ADMIT Emergency Medicine; ATTEND Emergency Medicine
PROC: 5A1D70Z Performance of Urinary Filtration, Intermittent, Less than 6 Hours Per Day (ICD-10-PCS; principal; 2019-10-31)
PROC: 5A1D70Z Performance of Urinary Filtration, Intermittent, Less than 6 Hours Per Day (ICD-10-PCS; 2019-11-02)
PROC: 5A1D70Z Performance of Urinary Filtration, Intermittent, Less than 6 Hours Per Day (ICD-10-PCS; 2019-11-03)
PROC: 5A1D70Z Performance of Urinary Filtration, Intermittent, Less than 6 Hours Per Day (ICD-10-PCS; 2019-11-05)
PROC: 5A1D70Z Performance of Urinary Filtration, Intermittent, Less than 6 Hours Per Day (ICD-10-PCS; 2019-11-07)
PROC: 5A1D70Z Performance of Urinary Filtration, Intermittent, Less than 6 Hours Per Day (ICD-10-PCS; 2019-11-10)
DX: N17.9 Acute kidney failure, unspecified (principal); E44.0 Moderate protein-calorie malnutrition; I12.0 Hypertensive chronic kidney disease with stage 5 chronic kidney disease or end stage renal disease; E83.51 Hypocalcemia; N18.6 End stage renal disease; R73.9 Hyperglycemia, unspecified; E83.41 Hypermagnesemia; E66.01 Morbid (severe) obesity due to excess calories; E03.9 Hypothyroidism, unspecified; F32.9 Major depressive disorder, single episode, unspecified; F41.9 Anxiety disorder, unspecified; D64.9 Anemia, unspecified; E87.8 Other disorders of electrolyte and fluid balance, not elsewhere classified; F17.210 Nicotine dependence, cigarettes, uncomplicated; E83.39 Other disorders of phosphorus metabolism; I10 Essential (primary) hypertension; Z68.38 Body mass index [BMI] 38.0-38.9, adult; Z20.828 Contact with and (suspected) exposure to other viral communicable diseases; Z88.0 Allergy status to penicillin; Z83.3 Family history of diabetes mellitus; Z90.49 Acquired absence of other specified parts of digestive tract; Z82.49 Family history of ischemic heart disease and other diseases of the circulatory system; Z99.2 Dependence on renal dialysis; Z71.6 Tobacco abuse counseling; Z91.19 Patient's noncompliance with other medical treatment and regimen

== ENCOUNTER → 2019-12-23 | Outpatient (CLI) | payer MEDICARE, MEDICAID ==
[~2019-12-23] MED LIST changes: +GABAPENTIN100 M2 PO; +NEURONTIN300 MG PO; +RENAGEL800 M1 PO; +SEVELAMER HCL800 MG PO; +SODIUM BICARBO650 MG PO
== END | disposition home or self-care (01) ==
LOC: US 12:05
PROVIDERS: ATTEND Podiatrist Foot & Ankle Surgery
DX: M79.669 Pain in unspecified lower leg (principal); R60.0 Localized edema

== ENCOUNTER 2020-01-02 11:05 | Inpatient (IN) | payer MEDICARE, MEDICAID ==
[~2020-01-02] VITALS: Ht 180.3 cm; Wt 120.9 kg
[2020-01-02] VITALS (11 sets, daily range): BP systolic 167–190; BP diastolic 72–86
[~2020-01-02 11:05] MED LIST changes: -GABAPENTIN100 M2 PO; -NEURONTIN300 MG PO; -RENAGEL800 M1 PO
[2020-01-02 12:06] LABS: ABG BASE EXCESS 1.8 mmol/L (-2.0-2.0); ARTERIAL BLOOD GAS PH 7.515 (7.35-7.45)
[2020-01-02 12:06] LABS: BASO % 0.4 % (0.0-1.0); EOS # 0.2 10*3/uL (0.0-0.4); EOS % 2.4 % (1.0-4.0); HEMATOCRIT 23.2 % (37.0-47.0); LYMPH # 0.7 10*3/uL (1.3-4.4); MEAN CELL VOLUME 88.5 fl (81.0-99.0); MEAN CORPUSCULAR HGB 28.6 pg (27.0-31.0); MEAN CORPUSCULAR HGB CONC 32.3 g/dl (33.0-37.0); MEAN PLATELET VOLUME 8.4 fl (9.6-12.3); MONO # 0.6 10*3/uL (0.1-1.0); MONO % 7.4 % (3.0-9.0); NEUT % 80.4 % (47.0-73.0); PLATELET COUNT AUTOMATED 229 10*3/uL (130-400); RED BLOOD COUNT 2.62 10*6/uL (4.10-5.10); RED CELL DISTRI WIDTH 15.7 % (0-14.5); WHITE BLOOD COUNT 7.4 10*3/uL (4.8-10.8)
[2020-01-02 12:21] LABS: ALBUMIN 3.1 gm/dl (3.1-4.5); CREATININE 7.69 mg/dL (0.55-1.02); POTASSIUM 3.3 mmol/L (3.5-5.1)
[2020-01-02 15:38] LABS: BILIRUBIN Negative (Negative); BLOOD 2+ (Negative); CLARITY Cloudy (Clear); COLOR Yellow (Yellow); GLUCOSE Trace (Negative); KETONE 2+ (Negative); LEUKO ESTERASE 1+ (Negative); NITRITE Negative (Negative); UROBILINOGEN 0.2 E.U./dl (0.0-1.0)
[2020-01-02 15:45] LABS: EPITHELIAL CELLS TNTC; RBC 16-20 rbc/hpf (0-2)
[2020-01-02 15:46] LABS: BACTERIA 3+; URINE AMPHETAMINES < 1000 (1000ng/ml); URINE BARBITURATES < 200 (200ng/ml); URINE BENZODIAZEPINES < 200 (200ng/ml); URINE CANNABINOIDS (THC) < 50 (50ng/ml); URINE COCAINE < 300 (300ng/ml); URINE METHADONE < 300 (300ng/ml); URINE OPIATES < 300 (300ng/ml); URINE PHENCYCLIDINE < 25 (25ng/ml)
[2020-01-02 20:44] LABS: HEMATOCRIT 23.4 % (37.0-47.0)
[2020-01-02 21:03] LABS: URINE AMPHETAMINES < 1000 (1000ng/ml); URINE BARBITURATES < 200 (200ng/ml); URINE BENZODIAZEPINES < 200 (200ng/ml); URINE CANNABINOIDS (THC) < 50 (50ng/ml); URINE COCAINE < 300 (300ng/ml); URINE METHADONE < 300 (300ng/ml); URINE OPIATES < 300 (300ng/ml)
[2020-01-02 21:04] LABS: URINE PHENCYCLIDINE < 25 (25ng/ml)
--- NOTE | 2020-01-02 21:10 | NUR ---
NURSE TO NURSE REPORT ACCEPTED. PATIENT WAS ABLE TO GET UP OUT OF BED WITH ASSISTANCE TO THE BED SIDE COMMODE. NOTES THAT SHE HAD SOME DIZZINESS BUT WAS STEADY. PATIENT ASSISTED BACK INTO BED WHEN FINISHED. SHE DID HAVE A SMALL BOWEL MOVEMENT OF LIQUID STOOL. PATIENT IS AWAKE AND SITTING UP IN BED SPEAKING TO THE RESIDENT.
--- NOTE | 2020-01-02 21:31 | NUR ---
PATIENT REQUESTING SOMETHING TO EAT. PROVIDED A BOXED LUNCH. RESTING IN BED AT THIS TIME. RESP EASY AND NON LABORED. CALL LIGHT IN REACH. WILL CONTINUE TO MONITOR PT.
--- NOTE | 2020-01-02 21:33 | NUR ---
PATIENT AWAKE AND ORIENTED X4. EATING HER FOOD AT THIS TIME. NO COMPLAINTS. NO DISTRESS. COOPERATIVE. WILL CONTINUE TO MONITOR.
--- NOTE | 2020-01-02 22:02 | NUR ---
PATIENT ATE 100% OF HER FOOD.
--- NOTE | 2020-01-02 22:48 | NUR ---
PATIENT IS RESTING IN HER ROOM AT THIS TIME. SHE IS PLAYING ON HER PHONE LISTENING TO MUSIC. RESP EASY AND NON LABORED. CALL LIGHT IN REACH. WILL CONTINUE TO MONITOR PT.
--- NOTE | 2020-01-02 23:15 | NUR ---
REPORT RECEIVED FROM NGOZI COLEY.
[2020-01-03] VITALS (7 sets, daily range): BP systolic 161–188; BP diastolic 72–94
--- NOTE | 2020-01-03 01:00 | NUR ---
PT RESTING IN BED AT THIS TIME. NO VOICED COMPLAINTS. CALL LIGHT WITHIN REACH. WILL CONTINUE TO MONITOR.
--- NOTE | 2020-01-03 03:14 | NUR ---
PT REMAINS SLEEPING IN BED AT THIS TIME. NO DISTRESS NOTED. CALL LIGHT WITHIN REACH. WILL CONTINUE TO MONITOR.
[2020-01-03 06:14] LABS: BASO % 0.5 % (0.0-1.0); EOS # 0.4 10*3/uL (0.0-0.4); EOS % 7.2 % (1.0-4.0); HEMATOCRIT 22.8 % (37.0-47.0); LYMPH # 1.4 10*3/uL (1.3-4.4); LYMPH % 22.4 % (27.0-41.0); MEAN CELL VOLUME 90.1 fl (81.0-99.0); MEAN CORPUSCULAR HGB 28.5 pg (27.0-31.0); MEAN CORPUSCULAR HGB CONC 31.6 g/dl (33.0-37.0); MONO # 0.6 10*3/uL (0.1-1.0); MONO % 9.6 % (3.0-9.0); NEUT # 3.6 10*3/uL (2.3-7.9); PLATELET COUNT AUTOMATED 267 10*3/uL (130-400); RED BLOOD COUNT 2.53 10*6/uL (4.10-5.10); WHITE BLOOD COUNT 6.1 10*3/uL (4.8-10.8)
[2020-01-03 06:41] LABS: FREE T4 1.28 ng/dl (0.76-1.46); THYROID STIM HORMONE (HS) 1.42 uIU/ml (0.358-4.75)
[2020-01-03 06:49] LABS: POTASSIUM 4.6 mmol/L (3.5-5.1)
[2020-01-03 07:32] LABS: VITAMIN D, 25-HYDROXY 14.1 ng/mL (30-100)
--- NOTE | 2020-01-03 12:00 | NUR ---
SPOKE TO ANSWERING SERVICE FOR CONSULT TO . WAS ADVISED MESSAGE WILL BE SENT TO OFFICE.
--- NOTE | 2020-01-03 12:19 | NUR ---
SPOKE TO . REVIEWED PATIENT LABS. ADVISED THAT PT BGM OF 74-80'S IS LOW FOR DIALYSIS PT. IS MADE AWARE.
[2020-01-03] MEDS ORDERED: GABAPENTIN100 M2 PO (12:35)
--- NOTE | 2020-01-03 12:54 | NUR ---
PATIENT SITTING UP IN BED EATING LUNCH TRAY. ALERT/ORIENTED X3. SPEECH CLEAR, VOICING NEEDS.
--- NOTE | 2020-01-03 13:30 | NUR ---
A 39, admitted to 5E, under the services of TRISH Claire DO with a diagnosis of ALTERED MENTAL STATUS. Chief complaint is ALTERED MENTAL STATUS. Patient arrived via stretcher from ER. Monitor applied. Initial assessment completed. Vital signs taken and recorded. TRISH CLAIRE DO notified of admission to the unit. Orders received. See assessment for past medical history, medications and allergies. Patient and/or family oriented to unit. [address] visitation policy reviewed. Clothing/patient valuable form completed. CJ ROMO
[2020-01-03] MEDS ORDERED: RENAGEL800 M1 PO (15:12)
[2020-01-03] MEDS ORDERED: NEURONTIN300 MG PO (15:14)
--- NOTE | 2020-01-03 15:14 | NUR ---
MED REC UPDATED WITH LIST FROM [facility].
--- NOTE | 2020-01-03 19:20 | NUR ---
REPORT RECEIVED. PT SITTING IN BED CROCHETING. NO COMPLAINTS VOICED. CALL LIGHT IN REACH
--- NOTE | 2020-01-03 20:45 | NUR ---
DR. AGUILERA NOTIFIED OF PT BP 183/73. ORDERS RECEIVED.
--- NOTE | 2020-01-03 22:00 | NUR ---
DR. AGUILERA NOTIFIED OF 2 RN UNABLE TO GET IV SITE ON PT. RN FROM ICU TO TRY. IF UNABLE, SWITCH IV HYDRALAZINE TO PO.
--- NOTE | 2020-01-03 22:30 | NUR ---
IV SITE OBTAINED BY TAMARA MUSE. PT TOLERATED WELL. IV APRESOLINE ADMINISTERED AT THIS TIME.
[2020-01-04] VITALS: BP 170/74
[2020-01-04 06:07] LABS: BASO # 0.1 10*3/uL (0.0-0.1); EOS # 0.6 10*3/uL (0.0-0.4); LYMPH # 1.4 10*3/uL (1.3-4.4); LYMPH % 28.2 % (27.0-41.0); MEAN CELL VOLUME 90.9 fl (81.0-99.0); MEAN CORPUSCULAR HGB 27.9 pg (27.0-31.0); MEAN CORPUSCULAR HGB CONC 30.7 g/dl (33.0-37.0); MEAN PLATELET VOLUME 8.7 fl (9.6-12.3); MONO # 0.4 10*3/uL (0.1-1.0); MONO % 7.5 % (3.0-9.0); NEUT # 2.6 10*3/uL (2.3-7.9); NEUT % 51.9 % (47.0-73.0); PLATELET COUNT AUTOMATED 281 10*3/uL (130-400); RED BLOOD COUNT 2.97 10*6/uL (4.10-5.10); RED CELL DISTRI WIDTH 14.6 % (0-14.5); WHITE BLOOD COUNT 5.1 10*3/uL (4.8-10.8)
[2020-01-04 06:11] LABS: CREATININE 11.6 mg/dL (0.55-1.02)
[2020-01-04 08:00] VITALS: BP 182/92
--- NOTE | 2020-01-04 08:30 | NUR ---
Patient resting quietly with no c/o discomfort. Respirations easy and regular. Vital signs stable. No overt distress. CJ ROMO R
--- NOTE | 2020-01-04 08:42 | NUR ---
PHYSICAL THERAPY Physical Therapy evaluation completed on 5th floor with full evaluation to follow. Recommend physical therapy per plan of care and home w outpatient PT upon discharge. Thank you for this referral. Zhang Cervantes SPT María Monahan PT,DPT
--- NOTE | 2020-01-04 09:06 | NUR ---
Nursing screen and occupational therapy eval received. Will follow up with patient. Thank you Mariza Valdes OTR/L
--- NOTE | 2020-01-04 10:58 | NUR ---
PHYSICAL THERAPY Nursing screen received and chart reviewed. PT order received and evaluation completed. Patient is on PT caseload. Will continue to follow. Thank you. María Monahan, PT,DPT
[2020-01-04 12:00] VITALS: BP 166/80
--- NOTE | 2020-01-04 12:06 | NUR ---
Discharge instructions reviewed with patient/family. Patient receptive and verbalizes understanding. Follow-up care arranged. Written instructions given to patient/family. CJ ROMO
--- NOTE | 2020-01-04 12:43 | NUR ---
Cytotechnologist/Cytology Supervisor in to talk to patient. Patient states lives at HOME with AND KIDS. There are 12 steps in the home. Physician: Ainsley LORD [facility]acy: [facility] Home health services: NONE Patient's level of ADLs: Patient has working utilities: YES DME: NONE Follow-up physician's appointment after d/c: WILL BE MADE BY HOSPITALIST NURSE DIRECTOR ON DISCHARGE Does patient want to access PORTAL?: NO Discharge plan PT LIVES AT HOME WITH HER AND KIDS AND IS INDEPENDENT IN HER CARE. STATES SHE HAS DIALYSIS ON , SAT BUT STATES SHE HAS MISSED SOME LATELY. PT HAS A HISTORY OF NON COMPLIANCE WITH DIALYSIS. WILL CONTINUE TO FOLLOW. PT STATES SHE WILL HAVE A RIDE HOME.. BC DIAZ
== END 2020-01-04 12:06 | disposition home or self-care (01) | DRG 640 ==
LOC: ED 11:05 → EDHOLD 21:56 → 5E 01-03 13:17
PROVIDERS: Emergency Medicine; Internal Medicine; ADMIT Internal Medicine; ATTEND Internal Medicine
DX: E86.0 Dehydration (principal); G93.41 Metabolic encephalopathy; N18.6 End stage renal disease; E44.0 Moderate protein-calorie malnutrition; I13.0 Hypertensive heart and chronic kidney disease with heart failure and stage 1 through stage 4 chronic kidney disease, or unspecified chronic kidney disease; E87.3 Alkalosis; E87.8 Other disorders of electrolyte and fluid balance, not elsewhere classified; E87.6 Hypokalemia; D64.9 Anemia, unspecified; E80.6 Other disorders of bilirubin metabolism; E03.9 Hypothyroidism, unspecified; F17.210 Nicotine dependence, cigarettes, uncomplicated; F32.9 Major depressive disorder, single episode, unspecified; F41.9 Anxiety disorder, unspecified; Z99.2 Dependence on renal dialysis; Z91.15 Patient's noncompliance with renal dialysis; Z71.6 Tobacco abuse counseling; Z98.891 History of uterine scar from previous surgery; Z90.49 Acquired absence of other specified parts of digestive tract; Z88.0 Allergy status to penicillin; Z79.899 Other long term (current) drug therapy; Z83.3 Family history of diabetes mellitus; Z68.37 Body mass index [BMI] 37.0-37.9, adult

== ENCOUNTER 2020-01-12 01:48 | Observation (INO) | payer MEDICARE, MEDICAID ==
[2020-01-12] VITALS (12 sets, daily range): BP systolic 143–197; BP diastolic 58–96
[~2020-01-12] VITALS: Ht 180.3 cm; Wt 120.4 kg
[~2020-01-12 01:48] MED LIST changes: +GABAPENTIN100 M2 PO; +NEURONTIN300 MG PO; +RENAGEL800 M1 PO
[2020-01-12 02:14] LABS: BASO # 0.1 10*3/uL (0.0-0.1); BASO % 0.5 % (0.0-1.0); EOS # 0.6 10*3/uL (0.0-0.4); HEMATOCRIT 22.2 % (37.0-47.0); LYMPH # 0.9 10*3/uL (1.3-4.4); LYMPH % 9.4 % (27.0-41.0); MEAN CORPUSCULAR HGB 28.7 pg (27.0-31.0); MEAN CORPUSCULAR HGB CONC 31.5 g/dl (33.0-37.0); MEAN PLATELET VOLUME 8.6 fl (9.6-12.3); MONO # 0.7 10*3/uL (0.1-1.0); MONO % 6.7 % (3.0-9.0); NEUT # 7.8 10*3/uL (2.3-7.9); NEUT % 77.2 % (47.0-73.0); PLATELET COUNT AUTOMATED 184 10*3/uL (130-400); RED BLOOD COUNT 2.44 10*6/uL (4.10-5.10); RED CELL DISTRI WIDTH 15.1 % (0-14.5); WHITE BLOOD COUNT 10.1 10*3/uL (4.8-10.8)
[2020-01-12 02:25] LABS: ACT PARTIAL THROMBO TIME 31.6 SECONDS (20.0-32.1); INTERNATIONAL NORM RATIO 1.1 (2.0-3.5)
[2020-01-12 02:30] LABS: ALBUMIN 3.3 gm/dl (3.1-4.5); CREATININE 17.7 mg/dL (0.55-1.02); POTASSIUM 5.1 mmol/L (3.5-5.1); TOTAL PROTEIN 7.7 gm/dL (6.4-8.2); TROPONIN I 0.041 ng/ml (<0.045)
[2020-01-13] VITALS: BP 150/72
[2020-01-13 06:11] LABS: BASO % 0.6 % (0.0-1.0); EOS # 0.4 10*3/uL (0.0-0.4); EOS % 5.7 % (1.0-4.0); LYMPH # 1.8 10*3/uL (1.3-4.4); LYMPH % 27.8 % (27.0-41.0); MEAN CELL VOLUME 89.4 fl (81.0-99.0); MEAN CORPUSCULAR HGB 28.9 pg (27.0-31.0); MEAN CORPUSCULAR HGB CONC 32.3 g/dl (33.0-37.0); MEAN PLATELET VOLUME 9.1 fl (9.6-12.3); MONO # 0.7 10*3/uL (0.1-1.0); MONO % 10.6 % (3.0-9.0); NEUT # 3.5 10*3/uL (2.3-7.9); NEUT % 55.1 % (47.0-73.0); PLATELET COUNT AUTOMATED 170 10*3/uL (130-400); RED BLOOD COUNT 2.46 10*6/uL (4.10-5.10); RED CELL DISTRI WIDTH 14.6 % (0-14.5); WHITE BLOOD COUNT 6.3 10*3/uL (4.8-10.8)
[2020-01-13 06:22] LABS: CREATININE 10.1 mg/dL (0.55-1.02)
[2020-01-13 06:46] LABS: POTASSIUM 3.6 mmol/L (3.5-5.1)
[2020-01-13 08:00] VITALS: BP 141/70
[2020-01-13 12:00] VITALS: BP 131/66
[2020-01-13 16:00] VITALS: BP 164/74
== END 2020-01-13 16:50 | disposition home or self-care (01) ==
LOC: ED 01:48 → EDHOLD 04:12 → 5E 15:59
PROVIDERS: Internal Medicine; ADMIT Internal Medicine; ATTEND Internal Medicine
DX: R07.89 Other chest pain (principal); R00.0 Tachycardia, unspecified; F32.9 Major depressive disorder, single episode, unspecified; I12.0 Hypertensive chronic kidney disease with stage 5 chronic kidney disease or end stage renal disease; N18.6 End stage renal disease; E66.01 Morbid (severe) obesity due to excess calories; E03.9 Hypothyroidism, unspecified; E55.9 Vitamin D deficiency, unspecified; I16.0 Hypertensive urgency; Z91.15 Patient's noncompliance with renal dialysis

== ENCOUNTER 2020-02-17 23:47 | Inpatient (IN) | payer MEDICARE, MEDICAID ==
[~2020-02-17] VITALS: Ht 180.3 cm; Wt 115.7 kg
[2020-02-17 23:49] VITALS: BP 242/128
[2020-02-18] VITALS (10 sets, daily range): BP systolic 167–210; BP diastolic 80–113
[2020-02-18 00:09] LABS: BASO # 0.1 10*3/uL (0.0-0.1); BASO % 0.6 % (0.0-1.0); EOS % 0.1 % (1.0-4.0); HEMATOCRIT 28.9 % (37.0-47.0); LYMPH # 0.9 10*3/uL (1.3-4.4); LYMPH % 11.7 % (27.0-41.0); MEAN CELL VOLUME 95.1 fl (81.0-99.0); MEAN CORPUSCULAR HGB 28.9 pg (27.0-31.0); MEAN CORPUSCULAR HGB CONC 30.4 g/dl (33.0-37.0); MEAN PLATELET VOLUME 8.8 fl (9.6-12.3); MONO # 0.4 10*3/uL (0.1-1.0); MONO % 4.5 % (3.0-9.0); NEUT # 6.5 10*3/uL (2.3-7.9); NEUT % 82.7 % (47.0-73.0); PLATELET COUNT AUTOMATED 255 10*3/uL (130-400); RED BLOOD COUNT 3.04 10*6/uL (4.10-5.10); RED CELL DISTRI WIDTH 14.9 % (0-14.5); WHITE BLOOD COUNT 7.8 10*3/uL (4.8-10.8)
[2020-02-18 00:31] LABS: ALBUMIN 3.6 gm/dl (3.1-4.5); CREATININE 15.5 mg/dL (0.55-1.02); TOTAL PROTEIN 7.7 gm/dL (6.4-8.2)
[2020-02-18 00:35] LABS: POTASSIUM 8.1 mmol/L (3.5-5.1)
[2020-02-18 00:36] LABS: TROPONIN I 0.642 ng/ml (<0.045)
--- NOTE | 2020-02-18 00:57 | NUR ---
PT ASSISTED UP TO BSC FOR SMALL DIARRHEA STOOL. PT VERY SOB AND ANXIOUS WITH ANY EXERTION. CRITICAL LAB RESULTS GIVEN TO DR BHATT. K+ 8.1, TROPONIN 0.642. EKG DONE.---WILLARD GREGG RN
--- NOTE | 2020-02-18 02:39 | NUR ---
SPOKE WITH DR JUNIOR ON THE PHONE.SHE WANTS NEPHROLOGY AND CARDIOLOGY CONSULTED AT THIS TIME. CALL PLACED TO DR DAVILA'S ANSWERING SERVICE.---WILLARD GREGG RN
--- NOTE | 2020-02-18 02:47 | NUR ---
CALL PLACED TO CARDIOLOGY GROUP/DR BYRNE.MESSAGE LEFT WITH ANSWERING SERVICE FOR HIM TO RETURN CALL.---WILLARD GREGG RN
--- NOTE | 2020-02-18 02:51 | NUR ---
SPOKE WITH DR BYRNE (CARDIOLOGY) AND HE IS AWARE OF CONSULT. NO ORDERS FROM HIM AT THIS TIME.---WILLARD GREGG RN
--- NOTE | 2020-02-18 03:14 | NUR ---
SECOND CALL PLACED INTO NEPHROLOGY GROUP DUE TO NO CALL BACK YET.---WILLARD GREGG RN
--- NOTE | 2020-02-18 03:40 | NUR ---
SPOKE WITH DR JUNIOR.SHE IS AWARE OF ELEVATED BP AND SECOND TROPONIN OF 0.981. ALSO MADE HER AWARE THAT NEPHROLOGY HAD A SECOND CALL PLACED INTO THEM AT 0315 AND WAITING FOR CALL BACK. DR VILLARREAL CONSULT WILL BE MADE IN THE AM,CLOSER TO DAYLIGHT SHIFT UNLESS PT WORSENS. PULSE OX 96 ON 5L NOW.---WILLARD GREGG RN
[2020-02-18 04:25] LABS: CREATININE 15.9 mg/dL (0.55-1.02)
[2020-02-18 04:32] LABS: POTASSIUM 7.5 mmol/L (3.5-5.1)
--- NOTE | 2020-02-18 04:52 | NUR ---
3RD CALL IN TO NEPHROLOGY GROUP ANSWERING SERVICE AT THIS TIME DUE TO NO RETURN CALL BACK FROM MD---WILLARD GREGG RN
--- NOTE | 2020-02-18 05:11 | NUR ---
SPOKE WITH DR CRISTINA AND HE SAID TO ORDER EMERGENT DIALYSIS AND TO NOTIFY THE DIALYSIS NURSE CNC MAINTENANCE MECHANIC AND FOR HER TO CALL HIM WITH FURTHER ORDERS. DR CRISTINA GAVE VERBAL APPROVAL TO GIVE ALL MED ORDERS (CALCIUM,INSULIN,D50,LOPRESSOR) BUT TO HOLD THE D10.HE IS AWARE OF PT'S ELEVATED BP AND LABS.---WILLARD GRGEG RN
[2020-02-18 06:07] LABS: HEMATOCRIT 27.9 % (37.0-47.0); MEAN CELL VOLUME 96.2 fl (81.0-99.0); MEAN CORPUSCULAR HGB 29.7 pg (27.0-31.0); MEAN CORPUSCULAR HGB CONC 30.8 g/dl (33.0-37.0); MEAN PLATELET VOLUME 9.4 fl (9.6-12.3); PLATELET COUNT AUTOMATED 223 10*3/uL (130-400); RED CELL DISTRI WIDTH 14.9 % (0-14.5); WHITE BLOOD COUNT 6.2 10*3/uL (4.8-10.8)
[2020-02-18 06:15] LABS: ALBUMIN 3.6 gm/dl (3.1-4.5)
[2020-02-18 06:18] LABS: CREATININE 15.6 mg/dL (0.55-1.02); TOTAL PROTEIN 7.6 gm/dL (6.4-8.2)
--- NOTE | 2020-02-18 06:20 | NUR ---
DR VILLARREAL NOTIFIED OF CONSULT.HE WAS MADE AWARE OF LABS,DIAGNOSIS,PULSE OX.NO ORDERS RECEIVED. I SPOKE WITH ZARIA THE DIALYSIS NURSE AND SHE IS ON HER WAY HERE TO DO DIALYSIS ON THIS PT. BP HAS IMPROVED TO 194/106---WILLARD GREGG RN
[2020-02-18 06:23] LABS: POTASSIUM 7.4 mmol/L (3.5-5.1)
--- NOTE | 2020-02-18 06:23 | NUR ---
MESSAGE LEFT ON DR JUNIOR'S VOICE MAIL FOR CRITICAL LABS OF REPEAT TROPONIN 1.11 AND K+ 7.4---WILLARD GREGG RN
[2020-02-18 06:28] LABS: INTERNATIONAL NORM RATIO 1.1 (2.0-3.5)
[2020-02-18 06:44] LABS: BASOPHILS 1 % (0-1); BURR CELLS FEW; OVALOCYTES FEW; PLATELET SUFFICIENCY NORMAL (NORMAL); TOTAL CELLS COUNTED 100 #CELLS
--- NOTE | 2020-02-18 06:44 | NUR ---
PT'S THIRD TROPONIN IS 1.11. DR JUNIOR MADE AWARE.SHE WANTED DR BYRNE TO BE NOTIFIED. I CALLED HIS NUMBER AND LEFT A MESSAGE WITH HIS ANSWERING SERVICE...THEY WERE TOLD THE THREE ESCALATING TROPONIN LEVELS.---WILLARD GREGG RN
--- NOTE | 2020-02-18 07:36 | NUR ---
PT TRANSPORTED TO DIALYSIS.
[2020-02-18 07:44] LABS: VITAMIN D, 25-HYDROXY 19.5 ng/mL (30-100)
[2020-02-18 07:47] LABS: FERRITIN 1310.3 ng/mL (10.0-291.0)
--- NOTE | 2020-02-18 09:58 | NUR ---
SPOKE TO DIALYSIS NURSE. PT WAS ONLY ABLE TO GET DIALYSIS FOR 1HR 30MIN BEFORE SITE WAS LOST. NURSE STATES AREA IS STARTING TO SWELL/BRUISE.
--- NOTE | 2020-02-18 11:01 | NUR ---
SPOKE TO DR. BUCKLEY. STATES THAT PT NEED A TEMPORARY DIALYSIS CATHETER PLACED TODAY OR TRANSFERRED TO ANOTHER FACILITY. MADE DR. SEQUEIRA AWARE.
[2020-02-18 14:31] LABS: ABG BASE EXCESS -4.5 mmol/L (-2.0-2.0); ARTERIAL BLOOD GAS PH 7.406 (7.35-7.45)
--- NOTE | 2020-02-18 14:34 | NUR ---
SPOKE TO . UPDATED ON PT STATUS. VSS AT THIS TIME.
--- NOTE | 2020-02-18 16:12 | NUR ---
DR GREY SURGEON AT BEDSIDE TO ASSESS DIALYSIS FISTULA. U/S AT BEDSIDE. DR GREY MARKED PATENT ACCESS POINTS. DIALYSIS NURSE NOTIFIED. DR GREY TO CALL DR CRABTREE. PT STABLE, RESP TACHYPNEIC BUT NONLABORED. SPO2 94% ON 3 L PER NC. HYPOERTENSIVE, BUT HAS DECREASED SINCE ARRIVAL TO ED. PT IS A&OX3. CALM, COOPERATIVE. TELE MONITOR INTACT. CALL LIGHT IN REACH.
--- NOTE | 2020-02-18 16:40 | NUR ---
DIALYSIS NURSES AT NURSES STATION TO TALK TO DR GREY.
--- NOTE | 2020-02-18 16:55 | NUR ---
PT TRANSPORTED BY [facility] NURSE TO [facility] FOR DIALYSIS. CONDITION STABLE.
--- NOTE | 2020-02-18 16:59 | NUR ---
LIDOCAINE VIAL WITH PT TO DIALYSIS PER PHARMACY AND DIALYSIS NURSE.
--- NOTE | 2020-02-18 19:33 | NUR ---
RECEIVED REPORT FROM DIALYSIS NURSE. PT WAS ON FOR [id number] EARLIER WITH 1.5K OFF. AT THIS TIME PT COPMLETED ANOTHER 2 HRS OF DIALYSIS WITH 3K OFF. TOLERATED WELL. DROWSY. NO MEDS GIVEN DURING DIALYSIS. BP 192/93. PRESSURE DRESSINGS APPLIED TO ACCESS SITES. WILL BE TRANSPORTED BACK TO ED SHORTLY. CALLED HOSPITALIST TO GIVE REPORT FROM DIALYSIS.
--- NOTE | 2020-02-18 19:45 | NUR ---
PT RETURNED FROM DIALYSIS. RESP EASY AND NONLABORED ON ROOM AIR. PT IS DROWSY, BUT ALERT. TELE MONITOR INTACT. VS STABLE. CALL LIGHT IN REACH.
--- NOTE | 2020-02-18 20:35 | NUR ---
REPORT GIVEN TO JOSEPH MUSE.
--- NOTE | 2020-02-18 22:55 | NUR ---
PATIENT SITTING UP IN BED AT THIS TIME. MEDICATED PER EMAR. PATIETN REQUESTING A DRINK, PROVIDED AT THIS TIME. CALL LIGHT WITHIN REACH. PATIENT DENIES ANY OTHER NEEDS AT THIS TIME. RESPIRATIONS EASY, NON-LABORED. RN WILL CONTINUE TO MONITOR.
[2020-02-19] VITALS (8 sets, daily range): BP systolic 160–188; BP diastolic 77–97
--- NOTE | 2020-02-19 03:47 | NUR ---
PATIENT ON BEDSIDE COMMODE AT THIS TIME. RESPIRATIONS EASY, NON-LABORED. DENIES ANY NEEDS. RN WILL CONTINUE TO MONITOR.
[2020-02-19 05:58] LABS: ALBUMIN 3.7 gm/dl (3.1-4.5); BASO % 0.1 % (0.0-1.0); HEMATOCRIT 26.9 % (37.0-47.0); LYMPH % 13.2 % (27.0-41.0); MEAN CELL VOLUME 95.1 fl (81.0-99.0); MEAN CORPUSCULAR HGB 29.7 pg (27.0-31.0); MEAN CORPUSCULAR HGB CONC 31.2 g/dl (33.0-37.0); MEAN PLATELET VOLUME 9.9 fl (9.6-12.3); MONO # 0.7 10*3/uL (0.1-1.0); MONO % 8.5 % (3.0-9.0); NEUT # 6.1 10*3/uL (2.3-7.9); NEUT % 77.7 % (47.0-73.0); PLATELET COUNT AUTOMATED 276 10*3/uL (130-400); RED BLOOD COUNT 2.83 10*6/uL (4.10-5.10); RED CELL DISTRI WIDTH 14.6 % (0-14.5); WHITE BLOOD COUNT 7.8 10*3/uL (4.8-10.8)
[2020-02-19 06:01] LABS: CREATININE 10.7 mg/dL (0.55-1.02); TOTAL PROTEIN 7.5 gm/dL (6.4-8.2)
[2020-02-19 06:34] LABS: POTASSIUM 5.4 mmol/L (3.5-5.1)
--- NOTE | 2020-02-19 06:41 | NUR ---
CALL OUT TO NEPHROLOGY AT THIS TIME TO INFORM PHYSICIAN ABOUT PHOS LEVEL OF 9.9. CRITICAL RESULT ALSO CALLED TO DR JUNIOR (RESIDENT). SPOKE WITH NEPHROLOGY ANSWERING SERVICE AND AWAITING CALL BACK.
--- NOTE | 2020-02-19 07:10 | NUR ---
PT REPORT ACCEPTED FOR CONTINUATION OF CARE. PT AWAKE AND ALERT, TV ON. NO VOICED COMPLAINTS. MEAL TRAY ORDERED, WATER PROVIDED, CALL THOMAS IN PLACE. PT DID REQUEST SALTINE CRACKERS. VITAL SIGNS ARE STABLE.
--- NOTE | 2020-02-19 08:35 | NUR ---
BEDSIDE TOILET EMPTIED FOR SMALL VOLUME LIQUID DIARRHEA. PT REQUESTS RETAPING TO RIGHT ARM FISTULA SITE. THIS SITE IS MODERATELY SWOLLEN WHICH PT STATES IS CHRONIC AND NO WORSE SINCE THE LAST TWO DIALYSIS TREATMENTS SHE HAS HAD HERE. NO LEAKAGE OBSERVED. NO VOICED COMPLAINTS PAIN. PT DID EAT ALL OF MEAL TRAY. VITALS REMAIN STAB LE AND WI THIN NORMAL LIMIT WITH BP NOTED TO BE IMPROVED. AWAITING BED ASSIGNMENT TO INPATIENT FLOOR. CALLBELL REMAINS IN REACH. PT WATCHINF TV. SHE IS A&OX3.
--- NOTE | 2020-02-19 09:12 | NUR ---
MEAL TRAY PROVIDED. PT DENIES NEEDING ASSITAMNCE TO EAT. NO CHANGE IN CONDITION OR COMPLAINT.
--- NOTE | 2020-02-19 09:54 | NUR ---
DR CRISTINA NOW CALLS BACK. ASKS DETAILED QESTIONS ABOUT PT CONDITION AND CURRENT TREATMENT PLAN. SUGGESTS WE TITRATE PT OFF OXYGEN TO MAINTAIN ADEQUATE POX READING SO SHE CAN BE DISCHARGED TO HOME TO TODAY AND THEN RESUME HER SCHEDULED DIALYSIS FROM HOME. HE ALSO ORDERS A NEW DOSE OF "RENVELA OR RENAGEN, PREFER RENVELA, 800MG TAB TIB AC". CALLED PLACED TO DR ALDRIDGE'S PHONE AND TWO RESIDENTS ANSWERED AND SPOKE THEN DISCONNECTED WHN I WAS DONE SPEAKING WITHOUT NEW ORDERS GIVEN.
--- NOTE | 2020-02-19 10:08 | NUR ---
DR ALDRIDGE NOW INFORMED OF DR CRISTINA'S SUGGESTION ABOUT DISCHARGE. PT REMOVED FROM SUPPLEMENTAL OXYGEN. AFTER 5 MINUTES, POX REMAINS AT 96% ON ROOM AIR. PT DENIES SOB. DR CRISTINA HAD SUGGESTED THAT THE SOB EXPERIENCED YESTERDAY MIGHT HAVE BEEN THE EXCESS FLUID SINCE REMOVED BY DIALYSIS TREATMENT. RENAGEL DOSE ORDERED PER PHONE ORDER. PT INFORMED, STATES HER DIALYSIS TREATMENTS WOULD BE "MESSED UP" IF THIS PLAN SUGGESTED BY DR CRISTINA WERE FOLLOWED. PT REMINDED SHE HAD NOT ATTENDED *ANY* TREATMENTS IN SEVERAL WEEKS.
--- NOTE | 2020-02-19 10:56 | NUR ---
pox remaining 92% on room air since oxygen discontinued per dr av Diallo
--- NOTE | 2020-02-19 14:05 | NUR ---
A 39, admitted to , under the services of LUCIA Desir DO with a diagnosis of HYPERTENSIVE URGENCY, COVID 19, ESRD, CHEST PAIN. Chief complaint is . Patient arrived via bed from ER. Monitor applied. Initial assessment completed. Vital signs taken and recorded. LUCIA DESIR DO notified of admission to the unit. Orders received. See assessment for past medical history, medications and allergies. Patient and/or family oriented to unit. [address] visitation policy reviewed. Clothing/patient valuable form completed. ENDY WOODARD
--- NOTE | 2020-02-19 14:50 | NUR ---
BETH BOGGS WITH PATIENT. NEW ORDERS RECEIVED.
--- NOTE | 2020-02-19 14:56 | NUR ---
PER PLACE PT ON 2L NC.
--- NOTE | 2020-02-19 17:50 | NUR ---
DENIES ANY NEEDS. 2L NC IN PLACE. CALL LIGHT WITHIN REACH.
--- NOTE | 2020-02-19 20:00 | NUR ---
IN TO ASSESS PATIENT. PATIENT RESTING IN BED. NO COMPLAINTS AT THIS TIME. PATIENT STATES SHES TIRED AND JUST WANTS TO GO TO SLEEP. 2L NC INTACT. CALL LIGHT WITHIN REACH, WILL MONITOR
--- NOTE | 2020-02-19 20:40 | NUR ---
24 HR chart check completed.
[2020-02-20] VITALS: BP 168/89
--- NOTE | 2020-02-20 02:00 | NUR ---
PATIENT SLEEPING, NO DISTRESS NOTED. BREATHING IS EASY AND REGULAR. CALL LIGHT WTIHIN REACH, WILL MONITOR
[2020-02-20 06:43] LABS: BASO % 0.5 % (0.0-1.0); EOS # 0.4 10*3/uL (0.0-0.4); EOS % 4.5 % (1.0-4.0); HEMATOCRIT 24.9 % (37.0-47.0); LYMPH # 2.1 10*3/uL (1.3-4.4); LYMPH % 25.1 % (27.0-41.0); MEAN CELL VOLUME 96.5 fl (81.0-99.0); MEAN CORPUSCULAR HGB 29.5 pg (27.0-31.0); MEAN CORPUSCULAR HGB CONC 30.5 g/dl (33.0-37.0); MONO # 0.6 10*3/uL (0.1-1.0); MONO % 7.2 % (3.0-9.0); NEUT # 5.1 10*3/uL (2.3-7.9); NEUT % 62.1 % (47.0-73.0); NUCLEATED RED BLOOD CELL 0.2 % (0.0-0.0); PLATELET COUNT AUTOMATED 203 10*3/uL (130-400); RED BLOOD COUNT 2.58 10*6/uL (4.10-5.10); RED CELL DISTRI WIDTH 14.8 % (0-14.5); WHITE BLOOD COUNT 8.3 10*3/uL (4.8-10.8)
[2020-02-20 07:05] LABS: ALBUMIN 3.3 gm/dl (3.1-4.5); CREATININE 12.9 mg/dL (0.55-1.02); TOTAL PROTEIN 6.9 gm/dL (6.4-8.2)
--- NOTE | 2020-02-20 07:25 | NUR ---
LAB CALLED WITH CRITICAL PHOS 10.4, DR BAKER NOTIFIED.
[2020-02-20 08:00] VITALS: BP 166/84
[2020-02-20 08:16] LABS: ABG BASE EXCESS -0.8 mmol/L (-2.0-2.0); ARTERIAL BLOOD GAS PH 7.393 (7.35-7.45)
--- NOTE | 2020-02-20 12:50 | NUR ---
RETURNS FROM DIALYSIS 4.2 KILOS OFF.
--- NOTE | 2020-02-20 13:47 | NUR ---
Garden Labourer spoke with Pt. via telephone due to Covid Precautions and Isolation. Patient states that she lives at Home with her There are [address] in the Home Physician: Jaclyn Nagel Pharmacy: [facility] Home health services: No Home Health Patient's level of ADLs: Independent with assist of Patient has working utilities: All are working DME: Walker Follow-up physician's appointment after d/c: Per Hospitalist Nurse Director Does patient want to access PORTAL?: No Discharge plan discussed with Pt. Pt. wants to return home at discharge. Denies need for Home Health and Denied SNF Stay. Pt. will Need Assessed for Home Oxygen if she requires it. She is not on Oxygen at Home. VERNELL MIRANDA LPN
--- NOTE | 2020-02-20 14:00 | NUR ---
Patient resting quietly with no c/o discomfort. Respirations easy and regular. Vital signs stable. No overt distress. CJ ROMO R
--- NOTE | 2020-02-20 15:54 | NUR ---
SPOKE TO DR. VILLARREAL, HE WAS AWARE PATIENT WAS COVID NEGATIVE, HE VERSED SHE COULD COME OUT OF ISOLATION, NOTIFIED XIOMARA Rowladn RN
[2020-02-20 16:00] VITALS: BP 160/76
--- NOTE | 2020-02-20 17:24 | NUR ---
DR FAROOQ IN TO SEE PT. OK TO DC PER HIS STANDPOINT. DR BRAVO NOTIFIED.
[2020-02-20 20:00] VITALS: BP 171/88
[2020-02-21] VITALS: BP 168/76
--- NOTE | 2020-02-21 00:30 | NUR ---
PT SLEEPING IN BED. RESP-EASY AND REGULAR. OXY6EN IN USE. CALL LIGHT IN REACH. SEE SHIFT ASSESSMENT.
--- NOTE | 2020-02-21 06:00 | NUR ---
TOLERATED ROUTINE MED WITH NO PROBLEM. NO C/O AT THIS TIME. CALL LIGHT IN REACH.
[2020-02-21 07:09] LABS: BASO % 0.3 % (0.0-1.0); EOS # 0.4 10*3/uL (0.0-0.4); EOS % 6.4 % (1.0-4.0); HEMATOCRIT 23.9 % (37.0-47.0); LYMPH # 1.4 10*3/uL (1.3-4.4); LYMPH % 20.4 % (27.0-41.0); MEAN CELL VOLUME 94.5 fl (81.0-99.0); MEAN CORPUSCULAR HGB 29.2 pg (27.0-31.0); MEAN PLATELET VOLUME 9.3 fl (9.6-12.3); MONO # 0.5 10*3/uL (0.1-1.0); NEUT # 4.4 10*3/uL (2.3-7.9); NEUT % 65.6 % (47.0-73.0); PLATELET COUNT AUTOMATED 221 10*3/uL (130-400); RED BLOOD COUNT 2.53 10*6/uL (4.10-5.10); RED CELL DISTRI WIDTH 14.6 % (0-14.5); WHITE BLOOD COUNT 6.8 10*3/uL (4.8-10.8)
[2020-02-21 07:37] LABS: ALBUMIN 3.1 gm/dl (3.1-4.5); CREATININE 8.8 mg/dL (0.55-1.02); POTASSIUM 4.2 mmol/L (3.5-5.1); TOTAL PROTEIN 6.6 gm/dL (6.4-8.2)
[2020-02-21 08:00] VITALS: BP 102/71; BP 148/72
[2020-02-21 12:00] VITALS: BP 139/70
--- NOTE | 2020-02-21 12:02 | NUR ---
PT DOES NOT QUALIFY FOR HOME O2. PT AT REST ON ROOM AIR HR 73 SPO2 100% BP 150/74 PT DURING AMBULATION ON ROOM AIR HR 82 SPO2 99% PT AT REST AFTER AMBULATION ON ROOM AIR SPO2 99% HR 86 BP 179/86
--- NOTE | 2020-02-21 13:46 | NUR ---
PT AWAITING DISCHARGE, SHE IS ATTEMPTING TO FIND TRANSPORTATION AT THE MOMENT.
--- NOTE | 2020-02-21 14:35 | NUR ---
PT LEAVING THE FLOOR NOW FOR DISCHARGE TO HOME.
== END 2020-02-21 14:35 | disposition home or self-care (01) | DRG 189 ==
LOC: ED 23:47 → EDHOLD 02-18 01:40 → 4E 02-19 11:56
PROVIDERS: Hospitalist; Internal Medicine; Internal Medicine Critical Care Medicine; Student in an Organized Health Care Education/Training Program; ADMIT Student in an Organized Health Care Education/Training Program; ATTEND Student in an Organized Health Care Education/Training Program
PROC: 5A1D70Z Performance of Urinary Filtration, Intermittent, Less than 6 Hours Per Day (ICD-10-PCS; principal; 2020-02-18)
PROC: 5A1D70Z Performance of Urinary Filtration, Intermittent, Less than 6 Hours Per Day (ICD-10-PCS; 2020-02-20)
DX: J96.01 Acute respiratory failure with hypoxia (principal); N18.6 End stage renal disease; I16.1 Hypertensive emergency; N17.9 Acute kidney failure, unspecified; R65.10 Systemic inflammatory response syndrome (SIRS) of non-infectious origin without acute organ dysfunction; D68.59 Other primary thrombophilia; I12.0 Hypertensive chronic kidney disease with stage 5 chronic kidney disease or end stage renal disease; E87.5 Hyperkalemia; Z20.828 Contact with and (suspected) exposure to other viral communicable diseases; F17.210 Nicotine dependence, cigarettes, uncomplicated; E78.5 Hyperlipidemia, unspecified; D64.9 Anemia, unspecified; E87.8 Other disorders of electrolyte and fluid balance, not elsewhere classified; E66.01 Morbid (severe) obesity due to excess calories; E55.9 Vitamin D deficiency, unspecified; F41.9 Anxiety disorder, unspecified; F32.9 Major depressive disorder, single episode, unspecified; Z88.0 Allergy status to penicillin; Z71.6 Tobacco abuse counseling; Z90.49 Acquired absence of other specified parts of digestive tract; Z99.2 Dependence on renal dialysis; Z91.15 Patient's noncompliance with renal dialysis; Z98.891 History of uterine scar from previous surgery; Z83.3 Family history of diabetes mellitus; Z82.49 Family history of ischemic heart disease and other diseases of the circulatory system; Z68.36 Body mass index [BMI] 36.0-36.9, adult

== ENCOUNTER 2020-05-31 07:30 | Inpatient (IN) | payer MEDICARE, MEDICAID ==
[2020-05-31] VITALS (7 sets, daily range): BP systolic 150–214; BP diastolic 60–113
[~2020-05-31] VITALS: Ht 180.3 cm; Wt 136.1 kg
[2020-05-31 08:15] LABS: BASO % 0.7 % (0.0-1.0); EOS # 0.2 10*3/uL (0.0-0.4); EOS % 3.6 % (1.0-4.0); HEMATOCRIT 36.4 % (37.0-47.0); LYMPH % 16.9 % (27.0-41.0); MEAN CELL VOLUME 97.3 fl (81.0-99.0); MEAN CORPUSCULAR HGB 29.9 pg (27.0-31.0); MEAN CORPUSCULAR HGB CONC 30.8 g/dl (33.0-37.0); MEAN PLATELET VOLUME 8.8 fl (9.6-12.3); MONO # 0.4 10*3/uL (0.1-1.0); MONO % 7.1 % (3.0-9.0); NEUT % 71.5 % (47.0-73.0); PLATELET COUNT AUTOMATED 189 10*3/uL (130-400); RED BLOOD COUNT 3.74 10*6/uL (4.10-5.10); WHITE BLOOD COUNT 5.6 10*3/uL (4.8-10.8)
[2020-05-31 08:30] LABS: ALBUMIN 3.7 gm/dl (3.1-4.5); TOTAL PROTEIN 7.4 gm/dL (6.4-8.2)
[2020-05-31 08:31] LABS: ACT PARTIAL THROMBO TIME 31.6 SECONDS (20.0-32.1)
[2020-05-31 08:43] LABS: POTASSIUM 7.6 mmol/L (3.5-5.1)
[2020-05-31] MEDS ORDERED: NEURONTIN100 MG PO (10:15)
[2020-05-31] MEDS ORDERED: ZESTRIL20 MG PO (10:16)
[2020-06-01] VITALS: BP 152/78
[2020-06-01 04:00] VITALS: BP 150/82
[2020-06-01 06:24] LABS: BASO % 0.4 % (0.0-1.0); EOS # 0.2 10*3/uL (0.0-0.4); EOS % 3.3 % (1.0-4.0); HEMATOCRIT 33.1 % (37.0-47.0); LYMPH # 0.9 10*3/uL (1.3-4.4); LYMPH % 17.5 % (27.0-41.0); MEAN CORPUSCULAR HGB 29.8 pg (27.0-31.0); MEAN CORPUSCULAR HGB CONC 31.7 g/dl (33.0-37.0); MEAN PLATELET VOLUME 9.4 fl (9.6-12.3); MONO # 0.5 10*3/uL (0.1-1.0); MONO % 9.4 % (3.0-9.0); NEUT # 3.4 10*3/uL (2.3-7.9); NEUT % 69.2 % (47.0-73.0); PLATELET COUNT AUTOMATED 186 10*3/uL (130-400); RED BLOOD COUNT 3.52 10*6/uL (4.10-5.10); RED CELL DISTRI WIDTH 17.1 % (0-14.5); WHITE BLOOD COUNT 4.9 10*3/uL (4.8-10.8)
[2020-06-01 06:30] LABS: ALBUMIN 3.1 gm/dl (3.1-4.5)
[2020-06-01 06:36] LABS: CREATININE 12.1 mg/dL (0.55-1.02); TOTAL PROTEIN 6.4 gm/dL (6.4-8.2)
[2020-06-01 07:02] LABS: POTASSIUM 4.3 mmol/L (3.5-5.1)
[2020-06-01 08:00] VITALS: BP 188/90
[2020-06-01 12:00] VITALS: BP 191/101
[2020-06-01 16:00] VITALS: BP 119/84
[2020-06-01 20:00] VITALS: BP 164/72
[2020-06-02] VITALS: BP 164/84
[2020-06-02 04:00] VITALS: BP 164/68
[2020-06-02 06:01] LABS: ALBUMIN 3.1 gm/dl (3.1-4.5); CREATININE 9.7 mg/dL (0.55-1.02); POTASSIUM 3.8 mmol/L (3.5-5.1); TOTAL PROTEIN 6.8 gm/dL (6.4-8.2)
[2020-06-02 06:06] LABS: BASO % 0.5 % (0.0-1.0); EOS # 0.2 10*3/uL (0.0-0.4); EOS % 4.4 % (1.0-4.0); HEMATOCRIT 34.9 % (37.0-47.0); LYMPH # 1.4 10*3/uL (1.3-4.4); LYMPH % 34.3 % (27.0-41.0); MEAN CELL VOLUME 94.1 fl (81.0-99.0); MEAN CORPUSCULAR HGB 29.9 pg (27.0-31.0); MEAN CORPUSCULAR HGB CONC 31.8 g/dl (33.0-37.0); MEAN PLATELET VOLUME 9.4 fl (9.6-12.3); MONO # 0.5 10*3/uL (0.1-1.0); MONO % 11.4 % (3.0-9.0); NEUT % 49.2 % (47.0-73.0); PLATELET COUNT AUTOMATED 187 10*3/uL (130-400); RED BLOOD COUNT 3.71 10*6/uL (4.10-5.10); RED CELL DISTRI WIDTH 16.8 % (0-14.5); WHITE BLOOD COUNT 4.1 10*3/uL (4.8-10.8)
[2020-06-02 08:00] VITALS: BP 176/74
[2020-06-02] MEDS ORDERED: LISINOPRIL20 MG PO (10:27)
[2020-06-02 12:00] VITALS: BP 149/85
== END 2020-06-02 14:50 | disposition home or self-care (01) | DRG 640 ==
LOC: ED 07:30 → EDHOLD 09:04 → ICCU 09:04
PROVIDERS: Emergency Medicine; Hospitalist; ADMIT Family Medicine; ATTEND Family Medicine
PROC: 5A1D70Z Performance of Urinary Filtration, Intermittent, Less than 6 Hours Per Day (ICD-10-PCS; principal; 2020-05-31)
PROC: 5A1D70Z Performance of Urinary Filtration, Intermittent, Less than 6 Hours Per Day (ICD-10-PCS; 2020-06-01)
PROC: 5A1D70Z Performance of Urinary Filtration, Intermittent, Less than 6 Hours Per Day (ICD-10-PCS; 2020-06-02)
DX: E87.5 Hyperkalemia (principal); N18.6 End stage renal disease; I12.0 Hypertensive chronic kidney disease with stage 5 chronic kidney disease or end stage renal disease; Z68.41 Body mass index [BMI] 40.0-44.9, adult; F41.9 Anxiety disorder, unspecified; F32.9 Major depressive disorder, single episode, unspecified; F17.210 Nicotine dependence, cigarettes, uncomplicated; E03.9 Hypothyroidism, unspecified; I16.0 Hypertensive urgency; R00.0 Tachycardia, unspecified; E66.01 Morbid (severe) obesity due to excess calories; E83.39 Other disorders of phosphorus metabolism; D63.1 Anemia in chronic kidney disease; Z91.15 Patient's noncompliance with renal dialysis; Z71.6 Tobacco abuse counseling; Z99.2 Dependence on renal dialysis; Z88.0 Allergy status to penicillin; Z86.16 Personal history of COVID-19; Z90.49 Acquired absence of other specified parts of digestive tract; Z83.3 Family history of diabetes mellitus; Z82.49 Family history of ischemic heart disease and other diseases of the circulatory system

== ENCOUNTER 2020-08-18 14:33 | Emergency (ER) | payer OTHER ==
[~2020-08-18] VITALS: Ht 180.3 cm; Wt 135.0 kg
[~2020-08-18 14:33] MED LIST changes: +NEURONTIN100 MG PO; +ZESTRIL20 MG PO
[2020-08-18 16:20] LABS: BASO % 0.3 % (0.0-1.0); EOS # 0.2 10*3/uL (0.0-0.4); EOS % 2.6 % (1.0-4.0); HEMATOCRIT 32.1 % (37.0-47.0); LYMPH # 0.5 10*3/uL (1.3-4.4); LYMPH % 8.4 % (27.0-41.0); MEAN CELL VOLUME 92.2 fl (81.0-99.0); MEAN CORPUSCULAR HGB 30.2 pg (27.0-31.0); MEAN CORPUSCULAR HGB CONC 32.7 g/dl (33.0-37.0); MEAN PLATELET VOLUME 9.3 fl (9.6-12.3); MONO # 0.4 10*3/uL (0.1-1.0); MONO % 6.7 % (3.0-9.0); NEUT # 4.7 10*3/uL (2.3-7.9); NEUT % 81.7 % (47.0-73.0); PLATELET COUNT AUTOMATED 147 10*3/uL (130-400); RED BLOOD COUNT 3.48 10*6/uL (4.10-5.10); RED CELL DISTRI WIDTH 15.5 % (0-14.5); WHITE BLOOD COUNT 5.8 10*3/uL (4.8-10.8)
[2020-08-18 16:38] LABS: ALBUMIN 3.5 gm/dl (3.1-4.5); CREATININE 18.8 mg/dL (0.55-1.02); POTASSIUM 5.4 mmol/L (3.5-5.1); TOTAL PROTEIN 7.9 gm/dL (6.4-8.2)
[2020-08-18 16:39] LABS: TROPONIN I 0.018 ng/ml (<0.045)
[2020-08-18 16:44] LABS: ACT PARTIAL THROMBO TIME 32.5 SECONDS (20.0-32.1)
== END 2020-08-19 00:21 | disposition short-term general hospital (02) ==
LOC: ED 14:33
PROVIDERS: Emergency Medicine
DX: I67.4 Hypertensive encephalopathy (principal); E87.5 Hyperkalemia; N18.6 End stage renal disease; R56.9 Unspecified convulsions; Z88.0 Allergy status to penicillin; Z79.899 Other long term (current) drug therapy

== ENCOUNTER 2020-10-20 06:49 | Inpatient (IN) | payer OTHER ==
[~2020-10-20] VITALS: Ht 180.3 cm; Wt 122.3 kg
[2020-10-20 07:09] VITALS: BP 197/96
[2020-10-20 08:22] LABS: BASO % 0.7 % (0.0-1.0); EOS # 0.1 10*3/uL (0.0-0.4); EOS % 1.2 % (1.0-4.0); HEMATOCRIT 25.9 % (37.0-47.0); LYMPH # 0.8 10*3/uL (1.3-4.4); LYMPH % 18.5 % (27.0-41.0); MEAN CELL VOLUME 94.9 fl (81.0-99.0); MEAN CORPUSCULAR HGB 30.8 pg (27.0-31.0); MEAN CORPUSCULAR HGB CONC 32.4 g/dl (33.0-37.0); MEAN PLATELET VOLUME 9.8 fl (9.6-12.3); MONO # 0.3 10*3/uL (0.1-1.0); MONO % 7.1 % (3.0-9.0); PLATELET COUNT AUTOMATED 105 10*3/uL (130-400); RED BLOOD COUNT 2.73 10*6/uL (4.10-5.10); RED CELL DISTRI WIDTH 14.1 % (0-14.5); WHITE BLOOD COUNT 4.2 10*3/uL (4.8-10.8)
[2020-10-20 08:37] LABS: ALBUMIN 3.8 gm/dl (3.1-4.5); POTASSIUM 5.9 mmol/L (3.5-5.1); TOTAL PROTEIN 7.4 gm/dL (6.4-8.2); TROPONIN I 0.019 ng/ml (<0.045)
[2020-10-20 08:43] LABS: CREATININE 23.7 mg/dL (0.55-1.02)
[2020-10-20 09:15] VITALS: BP 158/88
[2020-10-20] MEDS ORDERED: KEPPRA500 MG PO (13:03)
[2020-10-20] MEDS ORDERED: HYDRALAZINE HC100 MG PO (13:04)
[2020-10-20] MEDS ORDERED: CLONIDINE HCL0.2 MG PO (13:04)
[2020-10-20 16:00] VITALS: BP 203/72
[2020-10-20 20:00] VITALS: BP 193/81
[2020-10-21] VITALS: BP 190/86
[2020-10-21 06:09] LABS: BASO % 1.1 % (0.0-1.0); EOS # 0.2 10*3/uL (0.0-0.4); EOS % 4.7 % (1.0-4.0); HEMATOCRIT 24.2 % (37.0-47.0); LYMPH # 0.8 10*3/uL (1.3-4.4); LYMPH % 20.1 % (27.0-41.0); MEAN CELL VOLUME 93.1 fl (81.0-99.0); MEAN CORPUSCULAR HGB 30.4 pg (27.0-31.0); MEAN CORPUSCULAR HGB CONC 32.6 g/dl (33.0-37.0); MEAN PLATELET VOLUME 9.9 fl (9.6-12.3); MONO # 0.4 10*3/uL (0.1-1.0); MONO % 9.2 % (3.0-9.0); NEUT # 2.5 10*3/uL (2.3-7.9); NEUT % 64.6 % (47.0-73.0); PLATELET COUNT AUTOMATED 103 10*3/uL (130-400); RED CELL DISTRI WIDTH 13.8 % (0-14.5); WHITE BLOOD COUNT 3.8 10*3/uL (4.8-10.8)
[2020-10-21 06:11] VITALS: BP 199/88
[2020-10-21 06:25] LABS: ALBUMIN 3.3 gm/dl (3.1-4.5); CREATININE 18.5 mg/dL (0.55-1.02)
[2020-10-21 06:27] LABS: TOTAL PROTEIN 6.8 gm/dL (6.4-8.2)
[2020-10-21 06:28] LABS: POTASSIUM 4.6 mmol/L (3.5-5.1)
[2020-10-21 08:00] VITALS: BP 160/88
[2020-10-21 12:00] VITALS: BP 178/88; BP 187/79
== END 2020-10-21 15:45 | disposition home or self-care (01) | DRG 304 ==
LOC: ED 06:49 → EDHOLD 09:09 → 4E 09:09
PROVIDERS: Emergency Medicine; Family Medicine; ADMIT Internal Medicine; ATTEND Internal Medicine
PROC: 5A1D70Z Performance of Urinary Filtration, Intermittent, Less than 6 Hours Per Day (ICD-10-PCS; principal; 2020-10-20)
PROC: 5A1D70Z Performance of Urinary Filtration, Intermittent, Less than 6 Hours Per Day (ICD-10-PCS; 2020-10-21)
DX: I16.1 Hypertensive emergency (principal); N18.6 End stage renal disease; I12.0 Hypertensive chronic kidney disease with stage 5 chronic kidney disease or end stage renal disease; F41.9 Anxiety disorder, unspecified; D72.819 Decreased white blood cell count, unspecified; D64.9 Anemia, unspecified; E87.5 Hyperkalemia; E83.41 Hypermagnesemia; D69.6 Thrombocytopenia, unspecified; E03.9 Hypothyroidism, unspecified; F32.9 Major depressive disorder, single episode, unspecified; F17.220 Nicotine dependence, chewing tobacco, uncomplicated; Z71.6 Tobacco abuse counseling; Z83.3 Family history of diabetes mellitus; Z99.2 Dependence on renal dialysis; Z91.15 Patient's noncompliance with renal dialysis; Z88.0 Allergy status to penicillin; Z79.899 Other long term (current) drug therapy; Z90.49 Acquired absence of other specified parts of digestive tract

== ENCOUNTER 2020-12-01 07:05 | Emergency (ER) | payer OTHER ==
[~2020-12-01] VITALS: Ht 180.3 cm; Wt 118.4 kg
[~2020-12-01 07:05] MED LIST changes: +CLONIDINE HCL0.2 MG PO; +HYDRALAZINE HC100 MG PO; +KEPPRA500 MG PO
[2020-12-01 08:32] VITALS: BP 201/91
[2020-12-01 08:48] LABS: BASO % 0.6 % (0.0-1.0); EOS # 0.3 10*3/uL (0.0-0.4); EOS % 4.2 % (1.0-4.0); HEMATOCRIT 26.4 % (37.0-47.0); LYMPH # 1.1 10*3/uL (1.3-4.4); LYMPH % 17.4 % (27.0-41.0); MEAN CELL VOLUME 96.4 fl (81.0-99.0); MEAN CORPUSCULAR HGB 30.3 pg (27.0-31.0); MEAN CORPUSCULAR HGB CONC 31.4 g/dl (33.0-37.0); MEAN PLATELET VOLUME 9.3 fl (9.6-12.3); MONO # 0.4 10*3/uL (0.1-1.0); MONO % 6.3 % (3.0-9.0); NEUT # 4.6 10*3/uL (2.3-7.9); PLATELET COUNT AUTOMATED 143 10*3/uL (130-400); RED BLOOD COUNT 2.74 10*6/uL (4.10-5.10); RED CELL DISTRI WIDTH 13.4 % (0-14.5); WHITE BLOOD COUNT 6.5 10*3/uL (4.8-10.8)
[2020-12-01 09:00] LABS: ALBUMIN 3.6 gm/dl (3.1-4.5); CREATININE 18.4 mg/dL (0.55-1.02)
[2020-12-01 09:06] LABS: POTASSIUM 6.6 mmol/L (3.5-5.1)
== END 2020-12-01 09:30 | disposition left against medical advice (07) ==
LOC: ED 07:05 → EDHOLD 09:18 → ED 09:18
PROVIDERS: Student in an Organized Health Care Education/Training Program
DX: E87.8 Other disorders of electrolyte and fluid balance, not elsewhere classified (principal); Z91.19 Patient's noncompliance with other medical treatment and regimen

== ENCOUNTER 2021-01-03 09:03 | Inpatient (IN) | payer OTHER ==
[~2021-01-03] VITALS: Ht 180.3 cm; Wt 128.4 kg
[2021-01-03 09:14] VITALS: BP 210/90
[2021-01-03 09:26] LABS: BASO % 0.5 % (0.0-1.0); EOS # 0.2 10*3/uL (0.0-0.4); EOS % 2.6 % (1.0-4.0); HEMATOCRIT 24.2 % (37.0-47.0); LYMPH # 1.6 10*3/uL (1.3-4.4); LYMPH % 25.4 % (27.0-41.0); MEAN CELL VOLUME 94.2 fl (81.0-99.0); MEAN CORPUSCULAR HGB 30.4 pg (27.0-31.0); MEAN CORPUSCULAR HGB CONC 32.2 g/dl (33.0-37.0); MEAN PLATELET VOLUME 9.4 fl (9.6-12.3); MONO # 0.4 10*3/uL (0.1-1.0); MONO % 6.4 % (3.0-9.0); NEUT % 64.9 % (47.0-73.0); PLATELET COUNT AUTOMATED 151 10*3/uL (130-400); RED BLOOD COUNT 2.57 10*6/uL (4.10-5.10); RED CELL DISTRI WIDTH 14.1 % (0-14.5); WHITE BLOOD COUNT 6.1 10*3/uL (4.8-10.8)
[2021-01-03 09:37] LABS: ACT PARTIAL THROMBO TIME 29.2 SECONDS (20.0-32.1); INTERNATIONAL NORM RATIO 1.1 (2.0-3.5)
[2021-01-03 09:43] LABS: ALBUMIN 3.3 gm/dl (3.1-4.5); ALKALINE PHOSPHATASE 63 U/L (45-117); BUN 100 mg/dl (7-24); CHLORIDE 101 mmol/L (98-107); LIPASE 52 U/L (73-393); POTASSIUM 5.1 mmol/L (3.5-5.1); SGOT/AST 13 IU/L (3-35); SGPT/ALT 20 U/L (12-78); SODIUM 138 mmol/L (136-145); TOTAL PROTEIN 7.2 gm/dL (6.4-8.2)
[2021-01-03 09:48] LABS: TROPONIN I < 0.015 ng/ml (<0.045)
[2021-01-03 10:00] LABS: BETA-HCG, QUANT < 1.0 mIU/mL (1-3)
[2021-01-03 10:24] VITALS: BP 198/98
[2021-01-03 12:00] VITALS: BP 180/90
[2021-01-03 12:49] VITALS: BP 182/94
[2021-01-03] MEDS ORDERED: GABAPENTIN100 M2 PO (16:20)
[2021-01-03 20:09] VITALS: BP 230/90
[2021-01-03 22:30] VITALS: BP 200/72
[2021-01-04] VITALS: BP 171/100
[2021-01-04 01:22] VITALS: BP 219/90
[2021-01-04 03:20] VITALS: BP 215/90
[2021-01-04 03:36] LABS: CREATININE 16.9 mg/dL (0.55-1.02)
[2021-01-04 06:31] VITALS: BP 219/80
[2021-01-04 07:54] LABS: BASO % 0.5 % (0.0-1.0); EOS # 0.2 10*3/uL (0.0-0.4); EOS % 3.6 % (1.0-4.0); HEMATOCRIT 25.8 % (37.0-47.0); LYMPH # 1.1 10*3/uL (1.3-4.4); LYMPH % 17.1 % (27.0-41.0); MEAN CELL VOLUME 95.9 fl (81.0-99.0); MEAN CORPUSCULAR HGB 30.5 pg (27.0-31.0); MEAN CORPUSCULAR HGB CONC 31.8 g/dl (33.0-37.0); MEAN PLATELET VOLUME 9.9 fl (9.6-12.3); MONO # 0.3 10*3/uL (0.1-1.0); MONO % 4.9 % (3.0-9.0); NEUT # 4.5 10*3/uL (2.3-7.9); NEUT % 73.4 % (47.0-73.0); PLATELET COUNT AUTOMATED 156 10*3/uL (130-400); RED BLOOD COUNT 2.69 10*6/uL (4.10-5.10); RED CELL DISTRI WIDTH 14.3 % (0-14.5); WHITE BLOOD COUNT 6.1 10*3/uL (4.8-10.8)
[2021-01-04 08:10] LABS: POTASSIUM 5.3 mmol/L (3.5-5.1)
[2021-01-04 08:31] LABS: ALBUMIN 3.3 gm/dl (3.1-4.5); CREATININE 17.4 mg/dL (0.55-1.02); FREE T4 1.33 ng/dl (0.76-1.46); THYROID STIM HORMONE (HS) 2.36 uIU/ml (0.358-4.75); TOTAL PROTEIN 7.3 gm/dL (6.4-8.2)
[2021-01-04 10:43] LABS: VITAMIN D, 25-HYDROXY 20.7 ng/mL (30-100)
[2021-01-04 16:00] VITALS: BP 202/82
[2021-01-04 17:11] LABS: CREATININE 8.55 mg/dL (0.55-1.02)
[2021-01-04 17:26] LABS: POTASSIUM 3.5 mmol/L (3.5-5.1)
[2021-01-04 20:39] VITALS: BP 190/65
[2021-01-05] VITALS: BP 177/83
[2021-01-05 05:16] VITALS: BP 173/83
[2021-01-05 06:46] LABS: BASO % 0.4 % (0.0-1.0); EOS # 0.2 10*3/uL (0.0-0.4); EOS % 2.9 % (1.0-4.0); HEMATOCRIT 23.8 % (37.0-47.0); LYMPH # 0.7 10*3/uL (1.3-4.4); MEAN CELL VOLUME 96.4 fl (81.0-99.0); MEAN CORPUSCULAR HGB 30.4 pg (27.0-31.0); MEAN CORPUSCULAR HGB CONC 31.5 g/dl (33.0-37.0); MEAN PLATELET VOLUME 9.7 fl (9.6-12.3); MONO # 0.5 10*3/uL (0.1-1.0); MONO % 8.8 % (3.0-9.0); NEUT # 3.9 10*3/uL (2.3-7.9); NEUT % 74.3 % (47.0-73.0); PLATELET COUNT AUTOMATED 161 10*3/uL (130-400); RED BLOOD COUNT 2.47 10*6/uL (4.10-5.10); RED CELL DISTRI WIDTH 14.5 % (0-14.5); WHITE BLOOD COUNT 5.2 10*3/uL (4.8-10.8)
[2021-01-05 07:01] LABS: ALBUMIN 2.9 gm/dl (3.1-4.5); CREATININE 10.1 mg/dL (0.55-1.02); POTASSIUM 4.1 mmol/L (3.5-5.1); TOTAL PROTEIN 6.5 gm/dL (6.4-8.2)
[2021-01-05 12:00] VITALS: BP 178/74
[2021-01-05 18:00] VITALS: BP 180/82
== END 2021-01-05 20:42 | disposition home or self-care (01) | DRG 205 ==
LOC: ED 09:03 → 5E 13:18 → EDHOLD 13:18 → 5E 18:32
PROVIDERS: Emergency Medicine; Internal Medicine; Registered Nurse; ADMIT Internal Medicine; ATTEND Internal Medicine
PROC: 5A1D70Z Performance of Urinary Filtration, Intermittent, Less than 6 Hours Per Day (ICD-10-PCS; principal; 2021-01-04)
DX: M94.0 Chondrocostal junction syndrome [Tietze] (principal); N18.6 End stage renal disease; I16.1 Hypertensive emergency; E44.0 Moderate protein-calorie malnutrition; I12.0 Hypertensive chronic kidney disease with stage 5 chronic kidney disease or end stage renal disease; F41.9 Anxiety disorder, unspecified; E03.9 Hypothyroidism, unspecified; F32.A Depression, unspecified; D63.1 Anemia in chronic kidney disease; G40.909 Epilepsy, unspecified, not intractable, without status epilepticus; D64.9 Anemia, unspecified; E83.39 Other disorders of phosphorus metabolism; E87.5 Hyperkalemia; E83.41 Hypermagnesemia; Z88.0 Allergy status to penicillin; Z90.49 Acquired absence of other specified parts of digestive tract; Z87.891 Personal history of nicotine dependence; Z91.15 Patient's noncompliance with renal dialysis; Z99.2 Dependence on renal dialysis; Z83.3 Family history of diabetes mellitus; Z68.39 Body mass index [BMI] 39.0-39.9, adult

== ENCOUNTER 2021-03-02 02:22 | Emergency (ER) | payer OTHER ==
[~2021-03-02] VITALS: Ht 180.3 cm; Wt 122.5 kg
[2021-03-02 02:47] LABS: BASO % 0.4 % (0.0-1.0); EOS % 0.2 % (1.0-4.0); HEMATOCRIT 28.5 % (37.0-47.0); LYMPH # 0.5 10*3/uL (1.3-4.4); LYMPH % 4.7 % (27.0-41.0); MEAN CELL VOLUME 92.2 fl (81.0-99.0); MEAN CORPUSCULAR HGB 29.1 pg (27.0-31.0); MEAN CORPUSCULAR HGB CONC 31.6 g/dl (33.0-37.0); MEAN PLATELET VOLUME 11.6 fl (9.6-12.3); MONO # 0.6 10*3/uL (0.1-1.0); MONO % 6.3 % (3.0-9.0); NEUT # 8.3 10*3/uL (2.3-7.9); NEUT % 87.8 % (47.0-73.0); PLATELET COUNT AUTOMATED 150 10*3/uL (130-400); RED BLOOD COUNT 3.09 10*6/uL (4.10-5.10); RED CELL DISTRI WIDTH 14.6 % (0-14.5); WHITE BLOOD COUNT 9.5 10*3/uL (4.8-10.8)
[2021-03-02 03:04] LABS: ALBUMIN 3.5 gm/dl (3.1-4.5); POTASSIUM 5.5 mmol/L (3.5-5.1); TOTAL PROTEIN 7.9 gm/dL (6.4-8.2)
[2021-03-02 03:08] LABS: CREATININE 21.5 mg/dL (0.55-1.02)
== END 2021-03-02 07:30 | disposition short-term general hospital (02) ==
LOC: ED 02:22
PROVIDERS: Internal Medicine
DX: J18.9 Pneumonia, unspecified organism (principal); Z20.822 Contact with and (suspected) exposure to COVID-19; N18.6 End stage renal disease; E87.5 Hyperkalemia; E83.41 Hypermagnesemia; D64.9 Anemia, unspecified; F17.200 Nicotine dependence, unspecified, uncomplicated; Z88.0 Allergy status to penicillin; Z99.2 Dependence on renal dialysis

== ENCOUNTER 2021-03-25 06:50 | Emergency (ER) | payer OTHER ==
[~2021-03-25] VITALS: Ht 165.1 cm; Wt 95.3 kg
[2021-03-25 07:26] LABS: MEAN CELL VOLUME 91.7 fl (81.0-99.0); MEAN CORPUSCULAR HGB 28.3 pg (27.0-31.0); MEAN CORPUSCULAR HGB CONC 30.9 g/dl (33.0-37.0); MEAN PLATELET VOLUME 8.9 fl (9.6-12.3); PLATELET COUNT AUTOMATED 126 10*3/uL (130-400); RED BLOOD COUNT 2.05 10*6/uL (4.10-5.10); RED CELL DISTRI WIDTH 15.7 % (0-14.5); WHITE BLOOD COUNT 7.2 10*3/uL (4.8-10.8)
[2021-03-25 07:35] LABS: ACT PARTIAL THROMBO TIME 30.8 SECONDS (20.0-32.1)
[2021-03-25 07:37] LABS: HEMATOCRIT 18.8 % (37.0-47.0)
[2021-03-25 07:44] LABS: ALBUMIN 3.1 gm/dl (3.1-4.5); TOTAL PROTEIN 7.9 gm/dL (6.4-8.2)
[2021-03-25 07:54] LABS: CREATININE 22.6 mg/dL (0.55-1.02)
[2021-03-25 07:57] LABS: BASOPHILS 1 % (0-1); PLATELET SUFFICIENCY NORMAL (NORMAL); POTASSIUM 7.6 mmol/L (3.5-5.1); TOTAL CELLS COUNTED 100 #CELLS
[2021-03-25 07:58] LABS: BURR CELLS FEW; OVALOCYTES FEW
== END 2021-03-25 10:54 | disposition short-term general hospital (02) ==
LOC: ED 06:50
PROVIDERS: Emergency Medicine
DX: J96.01 Acute respiratory failure with hypoxia (principal); D64.9 Anemia, unspecified; J18.9 Pneumonia, unspecified organism; E87.5 Hyperkalemia; I50.9 Heart failure, unspecified; I11.0 Hypertensive heart disease with heart failure; K21.9 Gastro-esophageal reflux disease without esophagitis; E03.9 Hypothyroidism, unspecified; F17.210 Nicotine dependence, cigarettes, uncomplicated; G40.909 Epilepsy, unspecified, not intractable, without status epilepticus; Z88.0 Allergy status to penicillin; Z90.49 Acquired absence of other specified parts of digestive tract; Z98.890 Other specified postprocedural states

== ENCOUNTER 2021-09-11 12:43 | Emergency (ER) | payer OTHER ==
[~2021-09-11] VITALS: Wt 115.0 kg
[2021-09-11 13:25] LABS: HEMATOCRIT 31.8 % (37.0-47.0); MEAN CELL VOLUME 113.6 fl (81.0-99.0); MEAN CORPUSCULAR HGB 30.4 pg (27.0-31.0); MEAN CORPUSCULAR HGB CONC 26.7 g/dl (33.0-37.0); MEAN PLATELET VOLUME 10.3 fl (9.6-12.3); NUCLEATED RED BLOOD CELL 0.8 % (0.0-0.0); PLATELET COUNT AUTOMATED 102 10*3/uL (130-400); RED CELL DISTRI WIDTH 14.9 % (0-14.5); WHITE BLOOD COUNT 3.6 10*3/uL (4.8-10.8)
[2021-09-11 13:29] LABS: MANUAL DIFF REFLEX YES
[2021-09-11 13:42] LABS: POTASSIUM 5.1 mmol/L (3.5-5.1); TOTAL PROTEIN 6.4 gm/dL (6.4-8.2)
[2021-09-11 13:49] LABS: TOTAL CELLS COUNTED 100 #CELLS
[2021-09-11 13:51] LABS: BURR CELLS MANY; PLATELET SUFFICIENCY LOW (NORMAL)
[2021-09-11 14:00] LABS: INTERNATIONAL NORM RATIO 1.3 (2.0-3.5)
[2021-09-11 14:07] LABS: ACT PARTIAL THROMBO TIME 113.5 SECONDS (20.0-32.1)
== END 2021-09-11 14:14 ==
LOC: ED 12:43
PROVIDERS: Emergency Medicine
DX: I46.9 Cardiac arrest, cause unspecified (principal); F17.200 Nicotine dependence, unspecified, uncomplicated; Z98.890 Other specified postprocedural states; Z90.49 Acquired absence of other specified parts of digestive tract; Z88.0 Allergy status to penicillin